=== PATIENT | male | born 1975 | race Caucasian/White ===

== ENCOUNTER 2019-10-07 20:16 | Emergency (ER) | payer MEDICARE, MEDICAID, SELFPAY ==
[2019-10-07 20:22] VITALS: BP 113/68; PULSE 75; RESP 25; TEMP 37.2; O2SAT 95
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
[2019-10-07] MEDS: iohexol 300 mg/mL 100 mL Btl IV (21:10)
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
[2019-10-07 21:41] LABS: Basophils % 0.4 %; Eosinophils # 0.1 10^3/uL (0.0-0.8); Eosinophils % 1.3 %; Hematocrit 45.3 % (42.0-52.0); Hemoglobin 15.2 g/dL (11.7-16.6); Lymphocytes # 1.3 10^3/uL (0.8-4.8); Lymphocytes % 28.5 %; Mean Corpuscular HGB Conc 33.6 g/dL (30.0-36.0); Mean Corpuscular Hemoglobin 31.2 pg (28.0-34.0); Mean Platelet Volume 9.2 fL (7.4-10.4); Monocytes # 0.3 10^3/uL (0.2-0.9); Monocytes % 7.2 %; Neutrophils # 2.93 10^3/uL (1.8-7.7); Neutrophils % 62.4 %; Nucleated Red Blood Cells % 0 %; Platelet Count 230 10^3/cmm (130-400); Red Blood Count 4.87 10^6/uL (4.1-5.3); Red Cell Distribution Width 13.5 % (12.1-15.1); White Blood Count 4.7 10^3/uL (4.0-10.0)
[2019-10-07 21:47] LABS: Alanine Aminotransferase 43 U/L (0-41); Alcohol Level 274 mg/dL (0-10); Alkaline Phosphatase 81 IU/L (40-130); Anion Gap 16.5 (5-19); Aspartate Amino Transferase 43 U/L (0-40); Blood Urea Nitrogen 6 mg/dL (6-20); Calcium 8.1 mg/dL (8.5-10.5); Carbon Dioxide 24 mmol/L (22-29); Chloride 104 mmol/L (98-107); Globulin 2.7 g/dL (1.3-4.6); Glucose 118 mg/dL (65-115); Magnesium 1.8 mg/dL (1.7-2.3); Osmolality Calculated 289 mOsm/kg (285-295); Potassium 3.5 mmol/L (3.5-5.1); Sodium 141 mmol/L (136-145); Total Bilirubin 0.2 mg/dL (0.15-1.2); Total Protein 6.7 g/dL (6.6-8.7)
[2019-10-07 21:51] LABS: INR 0.94 (0.8-1.2); Partial Thromboplastin Time 25.4 SECONDS (23.9-36.7)
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
[2019-10-07 22:56] VITALS: BP 128/85; PULSE 70; RESP 14; O2SAT 98
--- NOTE | 2019-10-07 22:58 | PC.NURSE ---
Wound dressing applied to left elbow and hand.
== END 2019-10-07 22:58 | disposition home or self-care (01) ==
PROVIDERS: Emergency Provider Emergency Medicine
DX: S60.512A Abrasion of left hand, initial encounter (principal); V03.90XA Pedestrian on foot injured in collision with car, pick-up truck or van, unspecified whether traffic or nontraffic accident, initial encounter
CPT/HCPCS: 12345; 36415; 70450; 71045; 71260; 72125; 72170; 73080; 73090; 73110; 73130; 73502; 74177; 80053; 80307; 83735; 85025; 85610; 85730; 99283; 99284; Q9967

== ENCOUNTER 2020-06-09 12:04 | Inpatient (IN) | payer MEDICARE, MEDICAID, SELFPAY ==
--- NOTE | 2020-06-09 | XR_ITS ---
WS: [id number] Portable AP upright chest, 06/09/2020 Clinical Data: CHEST PAIN Comparison: Portable chest, 10/07/2019. Findings: No nodules, masses or effusions are seen. The heart is normal. The pulmonary vascularity is not increased. No pneumonia or pneumothorax is seen. XR/XR chest 1V portable [id number] Impression: Negative chest.
[2020-06-09 12:08] VITALS: BP 133/86; PULSE 93; RESP 18; TEMP 36.6; O2SAT 95
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
[2020-06-09] MEDS: haloperidol inj 5 mg/mL INJ 1 mL IM (12:32)
[2020-06-09] MEDS: sodium chloride 0.9% 1,000 ML 999 ML IV (12:49)
[2020-06-09 12:52] LABS: Basophils % 0.8 %; Eosinophils # 0.1 10^3/uL (0.0-0.8); Eosinophils % 2.3 %; Hematocrit 44.4 % (42.0-52.0); Hemoglobin 15.3 g/dL (11.7-16.6); Lymphocytes # 1.6 10^3/uL (0.8-4.8); Lymphocytes % 29.3 %; Mean Corpuscular HGB Conc 34.5 g/dL (30.0-36.0); Mean Corpuscular Volume 92.9 fL (80-94); Mean Platelet Volume 9.4 fL (7.4-10.4); Monocytes # 0.6 10^3/uL (0.2-0.9); Neutrophils # 2.99 10^3/uL (1.8-7.7); Neutrophils % 56.4 %; Nucleated Red Blood Cells % 0 %; Platelet Count 218 10^3/cmm (130-400); Red Blood Count 4.78 10^6/uL (4.1-5.3); Red Cell Distribution Width 11.7 % (12.1-15.1); White Blood Count 5.3 10^3/uL (4.0-10.0)
[2020-06-09 13:19] LABS: Alanine Aminotransferase 30 U/L (0-41); Albumin Level 4.6 g/dL (3.5-5.2); Alkaline Phosphatase 101 IU/L (40-130); Anion Gap 15.2 (5-19); Aspartate Amino Transferase 33 U/L (0-40); Blood Urea Nitrogen 8 mg/dL (6-20); Carbon Dioxide 26 mmol/L (22-29); Chloride 101 mmol/L (98-107); Globulin 2.8 g/dL (1.3-4.6); Glucose 98 mg/dL (65-115); Osmolality Calculated 286 mOsm/kg (285-295); Potassium 3.2 mmol/L (3.5-5.1); Sodium 139 mmol/L (136-145); Total Bilirubin 0.6 mg/dL (0.15-1.2); Total Protein 7.4 g/dL (6.6-8.7)
[2020-06-09 13:21] LABS: Acetaminophen < 5.0 ug/mL (10-30); Salicylate < 0.3 mg/dL (3-10)
[2020-06-09 14:21] LABS: Alcohol Level 213 mg/dL (0-10)
[2020-06-09] MEDS: potassium chloride ER 20 mEq Tablet 40 MEQ PO (14:32)
[2020-06-09 14:52] LABS: Add Urine Microscopic? NO; Charge for UA Resulting for Rev
[2020-06-09 15:02] LABS: Bilirubin Urine Neg (Negative); Blood Urine Neg (Negative); Glucose Urine UA Norm (Normal); Ketones Urine Negative (Negative); Leukocyte Esterase Urine Negative (Negative); Nitrate Urine Negative (Negative); Protein Urine Neg (Negative); Specific Gravity, Urine 1.005 (1.005-1.030); Urine Appearance Clear (CLEAR); Urine Color Straw (Yellow); Urobilinogen Urine Norm (Negative); pH Urine 6 (5-7)
[2020-06-09 15:17] LABS: Amphetamines Screen Urine Negative (Negative); Barbiturates Screen Urine Negative (Negative); Benzodiazepines Screen Urine Negative (Negative); Cocaine Screen Urine Negative (Negative); Opiate Screen Urine Negative (Negative); PCP Screen Urine Negative (Negative); THC Screen Urine Negative (Negative)
[2020-06-09 15:46] VITALS: BP 144/66; PULSE 79; RESP 18; TEMP 36.5; O2SAT 96
--- NOTE | 2020-06-09 15:50 | PC.NURSE ---
2 glass pipes disposed of in sharps container, witnessed by security and other nursing staff
[2020-06-09 18:46] LABS: Amphetamines Screen Urine Negative (Negative); Barbiturates Screen Urine Negative (Negative); Benzodiazepines Screen Urine Negative (Negative); Cocaine Screen Urine Negative (Negative); Opiate Screen Urine Negative (Negative); PCP Screen Urine Negative (Negative); THC Screen Urine Negative (Negative)
[2020-06-09 19:56] VITALS: RESP 16
[2020-06-10 06:00] VITALS: BP 134/78; PULSE 77; RESP 15; TEMP 37.3; O2SAT 95
[2020-06-10] MEDS: multivitamin therapeutic Tablet 1 TAB PO (08:30)
[2020-06-10] MEDS: folic acid 1 mg Tablet PO (08:31)
[2020-06-10] MEDS: thiamine 100 mg Tablet PO (08:31)
[2020-06-10 14:00] VITALS: BP 148/96; PULSE 74; RESP 18; TEMP 36.8; O2SAT 99
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
[2020-06-10 20:34] VITALS: BP 145/88; PULSE 87; RESP 18; TEMP 36.7; O2SAT 97
[2020-06-10] MEDS: hyDROXYzine 25 mg Capsule 50 MG PO (20:54)
[2020-06-10] MEDS: trazodone 50 mg Tablet PO (20:54)
--- NOTE | 2020-06-10 21:00 | PC.NURSE ---
PRN MEDS PT GIVEN 50MG VISTARIL FOR STATED ANXIETY, AND 50MG TRAZODONE FOR INSOMNIA, WILL CONTINUE TO MONITOR.
[2020-06-10] MEDS: ibuprofen 600 mg Tablet PO (21:21)
--- NOTE | 2020-06-10 22:35 | PC.NURSE ---
PRN MED PT RESTING IN BED O S/S O DISTRESS, WILL CONTINUE TO MONITOR.
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
--- NOTE | 2020-06-11 02:22 | PC.NURSE ---
Addendum entered by Latoya Garcia RN 06/11/20 05:20: rescored ciwa 0 Original Note: ciwa 15 pt woke up nauseated, sweating, reported headache, nausea, and sensitivity to light. moderate tremor, ciwa 15. med nurse notified.
[2020-06-11] MEDS: ondansetron 4 MG Tablet PO (02:27)
[2020-06-11] MEDS: LORazepam 2 mg Tablet PO ×3 (02:27→23:06)
--- NOTE | 2020-06-11 02:32 | PC.NURSE ---
Addendum entered by Latoya Garcia RN 06/11/20 03:22: follow up pt is sleeping , no nausea, Original Note: PRN Ativan 2mg po given for ciwa 15 zofran 4mg po given for nausea will continue to observe
[2020-06-11 06:00] VITALS: BP 135/92; PULSE 78; RESP 17; TEMP 36.6; O2SAT 98
[2020-06-11] MEDS: thiamine 100 mg Tablet PO (09:29)
[2020-06-11] MEDS: folic acid 1 mg Tablet PO (09:29)
[2020-06-11] MEDS: multivitamin therapeutic Tablet 1 TAB PO (09:30)
--- NOTE | 2020-06-11 11:16 | PC.NURSE ---
Addendum entered by Kavya Rojo LPN 06/11/20 11:19: late entry PRN Ativan follow up @ 1000 PRN medication effective, will continue to monitor Original Note: late entry PRN Ativan 0930 Ativan 2mg PO given per CIWA protocol. CIWA score 10. Will monitor for medication effectiveness.
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
[2020-06-11 14:00] VITALS: BP 125/85; PULSE 93; RESP 20; TEMP 36.4; O2SAT 96
--- NOTE | 2020-06-11 14:19 | P.PN_ITS ---
Subjective NPU Subjective: Interval history: Progress note from Kalli Manriquez, therapist, written today was reviewed. Significant concerns about continuing to have delusions as well as patient having some confusion about circumstances surrounding his girlfriend being moved. Patient currently denying any psychotic symptoms to this interviewer, denying any auditory or visual hallucinations, d enying any delusions. Denying any mood symptoms. Patient acknowledges that his girlfriend has moved away from him and states that he is not sure where he would go stay if discharged from the hospital. He currently denies any mood symptoms, denies any depressive symptoms, denies any suicidal ideation and denies any irritability or homicidal ideation. Mental Status Exam MSE Comments: Initially walking up and down hallway, disheveled, unkempt hair, appropriately dressed in hospital scrubs, calm, cooperative, good eye contact Psychomotor activity is neither increased nor decreased, no agitation Speech is normal volume, normal rate, poor articulation, not pressured I am fine, full range of affect, not labile Alert and oriented to person, place, time Memory and concentration is fair at best based on interview, difficulty recalling events leading to his hospitalization other than he had been drinking alcohol and was near some train tracks Intellectual functioning appears to be below average based on vocabulary, interview Thought process, linear, brief, no flight of ideas, no looseness of associations Thought content, no delusions, no hallucinations, no suicidal or homicidal ideation Insight and judgment appear to be fair Vitals/I&O/Wt Last Vital Signs Temp 97.9 F 06/11/20 06:00 Pulse 78 06/11/20 06:00 Resp 17 06/11/20 06:00 BP 135/92 06/11/20 06:00 Pulse Ox 98 06/11/20 06:00 Weight last 48 hrs Weight 90.718 kg Data NPU : 06/09/20 12:45 06/09/20 12:45 A&P Assessment and plan (1) Suicidal ideation: Status: Acute (2) Alcohol intoxication: Status: Acute Qualifiers: Complication of substance-induced condition: uncomplicated Qualified Code(s): F10.920 - Alcohol use, unspecified with intoxication, uncomplicated (3) Alcohol-induced mood disorder: Status: Acute Additional A&P Information Continues to deny any suicidal ideation and denies any interval mood symptoms, denies any irritability or anger. Concerns about ongoing psychotic symptoms with regards to delusions and recent events involving his girlfriend being moved away from him. Patient currently not presenting with any psychotic symptoms and does not appear to be demonstrating any disorganization in speech or behavior or thoughts. Unclear if behavior was sequela from alcohol withdrawal or recent alc ohol intoxication. We will continue to monitor for any signs of withdrawal. CONTINUE current medication, continue to monitor Involuntary Hold Information 96 Hour Hold: 96 Hour Involuntary Admission: Yes 96 Hour Hold Ending Date: 06/15/20 96 Hour Hold Ending Time: 14:30 Attestations NPU Medical Necessity Statement*: Continues to require psychiatric hospitalization for observation for any suicidal ideation or behaviors as well as coordination for safe discharge. 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
[2020-06-11] MEDS: calcium carbonate 500 mg Chew Tablet PO (16:20)
[2020-06-11] MEDS: trazodone 50 mg Tablet PO (19:28)
[2020-06-11] MEDS: hyDROXYzine 25 mg Capsule 50 MG PO (19:28)
--- NOTE | 2020-06-11 19:33 | PC.NURSE ---
Pt noted to be attempting to deal with some anger after session with Beverly of . Suggestion was made by Beverly that pt was needing something med cote to help ease his anger feelings and to help him sleep. Trazodone 50mg po and Vistaril 50mg po given. Pt himself stated he needed something for my anger .
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
--- NOTE | 2020-06-11 20:27 | PC.NURSE ---
PT HAS HAD HIS HS SNACK, STATES FEELING BETTER. PT HAS TALKED TO HIS MOM ON THE PHONE. PT NOW STATES HE IS READY FOR AND GOING TO BED.
[2020-06-11] MEDS: ibuprofen 600 mg Tablet PO (20:32)
[2020-06-11 20:41] VITALS: BP 128/84; PULSE 68; RESP 18; TEMP 36.8; O2SAT 94
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
[2020-06-12] MEDS: calcium carbonate 500 mg Chew Tablet PO ×2 (04:21→09:40)
--- NOTE | 2020-06-12 04:21 | PC.NURSE ---
PT REQUESTED TUMS FOR INDIGESTION. TUMS 1 TAB GIVEN.
[2020-06-12 06:00] VITALS: BP 120/85; PULSE 83; RESP 18; TEMP 36.8; O2SAT 97
[2020-06-12] MEDS: ibuprofen 600 mg Tablet PO ×2 (06:56→17:48)
[2020-06-12] MEDS: thiamine 100 mg Tablet PO (08:18)
[2020-06-12] MEDS: multivitamin therapeutic Tablet 1 TAB PO (08:18)
[2020-06-12] MEDS: folic acid 1 mg Tablet PO (08:18)
[2020-06-12] MEDS: hyDROXYzine 25 mg Capsule 50 MG PO ×2 (08:18→20:07)
[2020-06-12] MEDS: OLANZapine 5 mg TABLET PO ×2 (09:39→17:48)
--- NOTE | 2020-06-12 11:20 | P.PN_ITS ---
Subjective NPU Subjective: Interval history: Patient initially polite and pleasant when asking about leaving but then subsequently became irritable and somewhat angry when asked about experiencing perceptual disturbances to which the patient has stated that he has experienced some recently. Patient states that he does not like taking medication that he had taken in the past because he did not feel like it worked and did not like the way it made him feel. Patient also does not mount and directly say that his primary interest in leaving his to drink alcohol but asks many questions about whether or not he will get all of the items back that he came to the hospital with Patient does admit to past and recent episodes of abrupt irritability and anger during situations in which he feels like things are not going the way he would like for them to go but denies any thoughts of wanting to harm anyone else He currently denies any depressive symptoms, denies any suicidal ideation He currently denies any auditory or visual hallucinations Per nurse report, patient had reportedly stated that he had visions of being cut in half Per note review provided by therapist and not available in electronic medical record, patient with past history of impulse control disorder with episodes of extreme anger and concerns about past threat of violence towards others which was treated off label with atypical antipsychotic medication for mood stabilization. Mental Status Exam MSE Comments: Sitting on bench across from nurses station, disheveled, unkempt hair, smells of body odor, appropriately dressed in hospital scrubs, calm, cooperative, good eye contact Psychomotor activity is neither increased nor decreased, no agitation Speech is normal volume, normal rate, poor articulation, not pressured I feel okay, full range of affect, not labile Alert and oriented to person, place, time Memory and concentration is fair per interview Thought process, linear, brief, no flight of ideas, no looseness of associations Thought content, no delusions, no hallucinations, no suicidal or homicidal ideation Insight and judgment appear to be fair Vitals/I&O/Wt Last Vital Signs Temp 98.3 F 06/12/20 06:00 Pulse 83 06/12/20 06:00 Resp 18 06/12/20 06:00 BP 120/85 06/12/20 06:00 Pulse Ox 97 06/12/20 06:00 Data NPU : 06/09/20 12:45 06/09/20 12:45 A&P Assessment and plan (1) Suicidal ideation: Status: Acute (2) Alcohol intoxication: Status: Acute Qualifiers: Complication of substance-induced condition: uncomplicated Qualified Code(s): F10.920 - Alcohol use, unspecified with intoxication, uncomplicated (3) Impulse control disorder, unspecified: Status: Acute Additional A&P Information Review of previous notes indicate history of impulse control disorder with episodes of more severe anger and irritability with threat of violence to others that has been concerning in the past for his safety and others which had been treated with atypical antipsychotics and mood stabilizers. Patient appears to be less than forthright about recent events and recent issues with irritability and anger as well as potentially psychotic symptoms. He does not appear to be attending to any internal stimuli at this time and does not appear to be disorganized in his speech or behavior but does demonstrate some low frustration tolerance and preoccupation with returning to alcohol use. Discussed benefit of starting low-dose antipsychotic with patient who understood and agreed. Also discussed need to abstain from use of alcohol or any substances START olanzapine 5 mg twice daily targeting mood Continue to monitor Involuntary Hold Information 96 Hour Hold: 96 Hour Involuntary Admission: Yes 96 Hour Hold Ending Date: 06/15/20 96 Hour Hold Ending Time: 14:30 Attestations NPU Medical Necessity Statement*: Continues to require psychiatric hospitalization for medication stabilization, coordination for safe discharge Coding Level of Care Code Acute Rubber Goods Assembler for marzena Mccauley Diagnoses Suicidal ideation R45.851 Alcohol intoxication F10.920 Complication of substance-induced condition: uncomplicated Impulse control disorder, unspecified F63.9
[2020-06-12 13:33] VITALS: BP 120/86; PULSE 84; RESP 17; TEMP 36.7
[2020-06-12] MEDS: OLANZapine 5 mg ODT PO (20:07)
[2020-06-12 20:22] VITALS: BP 154/89; PULSE 95; RESP 18; TEMP 36.7; O2SAT 97
--- NOTE | 2020-06-12 20:28 | PC.NURSE ---
Pt came to the nurses desk after shift change, wondering can i have that medicine you gave me for my anger and sleep? Zyprexa 5mg po and Visteril 50mg po given.
--- NOTE | 2020-06-12 21:22 | PC.NURSE ---
Pt resting quietly with both eyes closed.
[2020-06-13] MEDS: OLANZapine 5 mg ODT PO ×2 (01:05→19:56)
[2020-06-13 06:00] VITALS: BP 155/96; PULSE 97; RESP 17; TEMP 36.7; O2SAT 100
[2020-06-13] MEDS: multivitamin therapeutic Tablet 1 TAB PO (07:34)
[2020-06-13] MEDS: ibuprofen 600 mg Tablet PO (07:34)
[2020-06-13] MEDS: OLANZapine 5 mg TABLET PO ×2 (07:34→17:44)
[2020-06-13] MEDS: thiamine 100 mg Tablet PO (07:34)
[2020-06-13] MEDS: folic acid 1 mg Tablet PO (07:34)
[2020-06-13] MEDS: calcium carbonate 500 mg Chew Tablet PO (08:28)
[2020-06-13] MEDS: acetaminophen 325 mg Tablet 650 MG PO (11:36)
--- NOTE | 2020-06-13 13:36 | P.PN_ITS ---
Subjective NPU Subjective: Interval history: Patient reports improvement in his irritability and mood, denies any interval depressive symptoms Denies any suicidal ideation Denies any interval alcohol withdrawal symptoms Reports being compliant with this medication and denies any medication side e ffects Mental Status Exam MSE Comments: Sitting in the day room, unkempt hair, appropriately dressed in hospital scrubs, calm, cooperative, good eye contact Psychomotor activity is neither increased nor decreased, no agitation Speech is normal volume, normal rate, poor articulation, not pressured I feel pretty good, full range of affect, smiles appropriately at times during interview, not labile Alert and oriented to person, place, time Memory and concentration is fair per interview Thought process, linear, brief, no flight of ideas, no looseness of associations Thought content, no delusions, no hallucinations, does not appear to be attending to any internal stimuli, no suicidal or homicidal ideation Insight and judgment appear to be fair to intact Vitals/I&O/Wt Last Vital Signs Temp 98.0 F 06/13/20 06:00 Pulse 97 06/13/20 06:00 Resp 17 06/13/20 06:00 BP 155/96 06/13/20 06:00 Pulse Ox 100 06/13/20 06:00 Weight last 48 hrs Weight 90.718 kg Data NPU : 06/09/20 12:45 06/09/20 12:45 A&P Assessment and plan (1) Impulse control disorder, unspecified: Status: Acute (2) Suicidal ideation: Status: Acute (3) Alcohol intoxication: Status: Acute Qualifiers: Complication of substance-induced condition: uncomplicated Qualified C ode(s): F10.920 - Alcohol use, unspecified with intoxication, uncomplicated Additional A&P Information Patient with no interval behavioral disturbances, no interval reported irritability or abrupt changes in behavior, denies any suicidal ideation or t houghts about self-harm, compliant with medication and no reported medication side effects. Patient would benefit from coordination with social work with regards to follow on care. CONTINUE current medication, continue to monitor Involuntary Hold Information 96 Hour Hold: 96 Hour Involuntary Admission: Yes 96 Hour Hold Ending Date: 06/15/20 96 Hour Hold Ending Time: 14:30 Attestations NPU Medical Necessity Statement*: Continues to require psychiatric hospitalization for medication stabilization, coordination for safe discharge Coding Level of Care Code Acute Electromechanical Engineer for Chg Fwd Diagnoses Impulse control disorder, unspecified F63.9 Suicidal ideation R45.851 Alcohol intoxication F10.920 Complication of substance-induced condition: uncomplicated
[2020-06-13 13:44] VITALS: BP 114/79; PULSE 99; RESP 18; TEMP 36.9; O2SAT 96
[2020-06-13 19:54] VITALS: BP 119/74; PULSE 93; RESP 15; TEMP 37.6; O2SAT 96
[2020-06-13] MEDS: hyDROXYzine 25 mg Capsule 50 MG PO (19:55)
[2020-06-14] MEDS: OLANZapine 5 mg ODT PO (01:57)
[2020-06-14] MEDS: hyDROXYzine 25 mg Capsule 50 MG PO (01:57)
[2020-06-14] MEDS: ibuprofen 600 mg Tablet PO ×2 (02:00→07:58)
--- NOTE | 2020-06-14 02:36 | PC.NURSE ---
at 0145, pt came to the nurses desk and requested ibuprofen for back pain and anger med . i can't sleep and i can't stop thinking . motrin 600mg po given. also Vistaril and zyprexa given.
--- NOTE | 2020-06-14 02:54 | PC.NURSE ---
pt is now resting quietly in his room.
[2020-06-14 06:00] VITALS: BP 126/86; PULSE 98; RESP 17; TEMP 37.1; O2SAT 98
[2020-06-14] MEDS: multivitamin therapeutic Tablet 1 TAB PO (07:45)
[2020-06-14] MEDS: thiamine 100 mg Tablet PO (07:45)
[2020-06-14] MEDS: OLANZapine 5 mg TABLET PO (07:45)
[2020-06-14] MEDS: folic acid 1 mg Tablet PO (07:46)
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
[2020-06-14 09:42] VITALS: BP 126/86; PULSE 98; RESP 17; TEMP 37.1; O2SAT 98
== END 2020-06-14 10:45 | disposition home or self-care (01) | DRG 897 ==
LOC: ER 15:02 → NP 15:11
PROVIDERS: Admitting Provider Psychiatry & Neurology Psychiatry; Emergency Provider Family Medicine; Visit Provider Psychiatry & Neurology Psychiatry
DX: F10.129 Alcohol abuse with intoxication, unspecified (principal); R45.851 Suicidal ideations; Y90.9 Presence of alcohol in blood, level not specified; F63.9 Impulse disorder, unspecified; F32.9 Major depressive disorder, single episode, unspecified; Z63.0 Problems in relationship with spouse or partner
CPT/HCPCS: 71045; 80053; 80306; 80307; 81003; 84443; 85025; 96360; 96372; 99285; J1630; J7030; Q0162

== ENCOUNTER 2020-06-28 12:54 | Inpatient (IN) | payer MEDICARE, MEDICAID, SELFPAY ==
[2020-06-28 13:10] VITALS: BP 131/78; PULSE 87; RESP 17; O2SAT 96; BMI 25.7
--- NOTE | 2020-06-28 13:23 | ED_ITS ---
Documented by User: JOSE ROBERTO Cortez 06/29/20 07:02 HPI - Psych General: Chief Complaint: Psychiatric Symptoms Stated Complaint: PSYCH EVAL Time Seen by Provider: 06/28/20 13:13 Source: patient and EMS Mode of arrival: EMS Limitations: no limitations History of Present Illness: HPI Narrative: Patient is a 44-year-old male who arrives to ED today via EMS on a 96-hour hold. He was sent here from [facility] [place] for complaints of suicidal and homicidal ideations as well as hallucinations. According to hold paperwork patient made statements that he was going to kill himself by laying on the train tracks. He apparently has a history of substance abuse and previous suicidal attempts. Patient was seen here at our facility on 06/09 after he was found intoxicated lying [place] the railroad tracks. He was subsequently admitted to [facility]. [facility] [place] provider reported that client was unwilling to sign a safety plan. She reports that patient is off his medications. Patient denies HI/SI during my assessment. History of same: Yes Context: not taking psychiatric medications Associated symptoms: Deny auditory hallucinations, visual hallucinations, depression, homicidal ideation or suicidal ideation Treatments prior to arrival: placed on mental health hold Review of Systems Const: Denies: fever(s) or chills Card: Denies: chest pain, palpitations, lightheadedness or syncope Resp: Denies: dyspnea GI: Denies: abdominal pain, nausea, vomiting or diarrhea Skin/Breast: Denies: rash Neuro: Denies: headache(s) Psych: Denies: anxiety, depression, visual hallucinations, auditory hallucinations, suicidal ideation or homicidal ideation Physical Exam Const: COMMON NORMALS: no acute distress and alert GENERAL APPEARANCE: cooperative and disheveled ORIENTATION/CONSCIOUSNESS: Yes awake, Yes oriented to person, Yes oriented to place and Yes oriented to time HENMT: COMMON NORMALS: normocephalic and atraumatic HEAD & SCALP: normocephalic and atraumatic Resp: COMMON NORMALS: normal respiratory effort and clear to auscultation bilaterally AUSCULTATION: clear to auscultation bilaterally Cardio: COMMON NORMALS: regular rate and regular rhythm RATE: regular rate RHYTHM: regular rhythm Neuro: SENSORIUM/ORIENTATION: Yes alert, Yes oriented to person, Yes oriented to place and Yes oriented to time Psych: COMMON NORMALS: mental status grossly normal, Normal thought process present, cooperative, normal affect, speech normal, activity/motor behavior normal, denies hallucinations, denies homicidal ideation and denies suicidal ideation APPEARANCE: Yes disheveled ATTITUDE: Yes calm ACTIVITY/MOTOR BEHAVIOR: Yes appropriate eye contact and No psychomotor agitation SPEECH: Yes normal speech MOOD & AFFECT: Yes euthymic mood THOUGHT PROCESS: Normal thought process present THOUGHT CONTENT: Yes Normal thought content present ATTENTION/CONCENTRATION: Yes attention grossly intact and Yes concentration grossly intact MEMORY/COGNITION: Yes memory grossly intact INSIGHT: Limit ed insight present (Psych) JUDGEMENT: Limited judgement present (Psych) Course Consultations: Consultation #1: Dr. Cuevas-recommends admit to NPU as OBS Vital Signs: Vital signs: Vital Signs Temperature 98.8 F 07/02/20 14:25 Pulse Rate 102 H 07/02/20 14:25 Respiratory Rate 18 07/02/20 14:25 Blood Pressure 121/81 07/02/20 14:25 Pulse Oximetry 95 07/02/20 14:25 MDM - Psych MDM Narrative: Medical decision making narrative: Patient on a [address] Cuevas recommends OBS admit to NPU. Dr. Diaz will place admit orders. Lab Data: Labs: Lab Results 06/28/20 06/28/20 06/28/20 Range/Units 14:20 14:20 15:41 WBC 6.4 (4.0-10.0) 10^3/ uL RBC 5.15 (4.1-5.3) 10^6/u L Hgb 16.6 (11.7-16.6) g/dL Hct 48.9 (42.0-52.0) % MCV 95.0 H (80-94) fL MCH 32.2 (28.0-34.0) pg MCHC 33.9 (30.0-36.0) g/dL RDW 12.0 L (12.1-15.1) % Plt Count 328 (130-400) 10^3/c mm MPV 9.3 (7.4-10.4) fL Neut % (Auto) 66.1 % Lymph % (Auto) 21.7 % Stone % (Auto) 8.6 % Eos % (Auto) 2.0 % Baso % (Auto) 0.8 % Neut # (Auto) 4.24 (1.8-7.7) 10^3/u L Lymph # (Auto) 1.4 (0.8-4.8) 10^3/u L Stone # (Auto) 0.6 (0.2-0.9) 10^3/u L Eos # (Auto) 0.1 (0.0-0.8) 10^3/u L Baso # (Auto) 0.1 (0.0-0.1) 10^3/u L Nucleated RBC % (a uto) 0 % Nucleated RBCs # 0.0 /100WBC Sodium 138 (136-145) mmol/L Potassium 4.0 (3.5-5.1) mmol/L Chloride 101 (98-107) mmol/L Carbon Dioxide 23 (22-29) mmol/L Anion Gap 18.0 (5-19) BUN 9 (6-20) mg/dL Creatinine 0.8 (0.7-1.2) mg/dL GFR Calculation 106.0 (90-130) mL/min Glucose 101 (65-115) mg/dL Calculated Osmolal ity 285 (285-295) mOsm/k g Calcium 8.9 (8.5-10.5) mg/dL Total Bilirubin 0.6 (0.15-1.2) mg/dL AST 34 (0-40) U/L ALT 45 H (0-41) U/L Alkaline Phosphata se 74 (40-130) IU/L Total Protein 7.4 (6.6-8.7) g/dL Albumin 4.5 (3.5-5.2) g/dL Globulin 2.9 (1.3-4.6) g/dL Salicylates < 0.3 L (3-10) mg/dL Urine Opiates Scre en Negative (Negative) ng/mL Acetaminophen < 5.0 L (10-30) ug/mL Ur Barbiturates Sc reen Negative (Negative) ng/mL Ur Phencyclidine S crn Negative (Negative) ng/mL Ur Amphetamines Sc reen Negative (Negative) ng/mL U Benzodiazepines Scrn Negative (Negative) ng/mL Urine Cocaine Scre en Negative (Negative) ng/mL U Marijuana (THC) Screen Negative (Negative) ng/mL Ethyl Alcohol < 10 (0-10) mg/dL Discharge Plan Discharge Patient Disposition: Admitted As Inpatient Admit Provider: Tano Cuevas Clinical Impression: Involuntary commitment, Suicidal ideation Condition: Stable Discharge Diet: Regular Discharge Activity: Resume usual activity Coding Level of Care Code ED Loan Review Officer for Maria G Fwkylah Exam Detailed Documented by User: Nia Diaz MD, [facility] 07/08/20 13:19 HPI - Psych General: Chief Complaint: Psychiatric Symptoms Stated Complaint: PSYCH EVAL Time Seen by Provider: 06/28/20 13:13 Course Vital Signs: Vital signs: Vital Signs Temperature 98.8 F 07/02/20 14:25 Pulse Rate 102 H 07/02/20 14:25 Respiratory Rate 18 07/02/20 14:25 Blood Pressure 121/81 07/02/20 14:25 Pulse Oximetry 95 07/02/20 14:25 MDM - Psych MDM Narrative: Medical decision making narrative: Kindly review the midlevel provider, Kae Marrufo's note for complete history and physical. I evaluated this patient and agree with her findings. He is intoxicated, states that he is suicidal and homicidal. He is being admitted to the [facility]PU for further evaluation and management Lab Data: Labs: Lab Results 06/28/20 06/28/20 06/28/20 Range/Units 14:20 14:20 15:41 WBC 6.4 (4.0-10.0) 10^3/ uL RBC 5.15 (4.1-5.3) 10^6/u L Hgb 16.6 (11.7-16.6) g/dL Hct 48.9 (42.0-52.0) % MCV 95.0 H (80-94) fL MCH 32.2 (28.0-34.0) pg MCHC 33.9 (30.0-36.0) g/dL RDW 12.0 L (12.1-15.1) % Plt Count 328 (130-400) 10^3/c mm MPV 9.3 (7.4-10.4) fL Neut % (Auto) 66.1 % Lymph % (Auto) 21.7 % Stone % (Auto) 8.6 % Eos % (Auto) 2.0 % Baso % (Auto) 0.8 % Neut # (Auto) 4.24 (1.8-7.7) 10^3/u L Lymph # (Auto) 1.4 (0.8-4.8) 10^3/u L Stone # (Auto) 0.6 (0.2-0.9) 10^3/u L Eos # (Auto) 0.1 (0.0-0.8) 10^3/u L Baso # (Auto) 0.1 (0.0-0.1) 10^3/u L Nucleated RBC % (a uto) 0 % Nucleated RBCs # 0.0 /100WBC Sodium 138 (136-145) mmol/L Potassium 4.0 (3.5-5.1) mmol/L Chloride 101 (98-107) mmol/L Carbon Dioxide 23 (22-29) mmol/L Anion Gap 18.0 (5-19) BUN 9 (6-20) mg/dL Creatinine 0.8 (0.7-1.2) mg/dL GFR Calculation 106.0 (90-130) mL/min Glucose 101 (65-115) mg/dL Calculated Osmolal ity 285 (285-295) mOsm/k g Calcium 8.9 (8.5-10.5) mg/dL Total Bilirubin 0.6 (0.15-1.2) mg/dL AST 34 (0-40) U/L ALT 45 H (0-41) U/L Alkaline Phosphata se 74 (40-130) IU/L Total Protein 7.4 (6.6-8.7) g/dL Albumin 4.5 (3.5-5.2) g/dL Globulin 2.9 (1.3-4.6) g/dL Salicylates < 0.3 L (3-10) mg/dL Urine Opiates Scre en Negative (Negative) ng/mL Acetaminophen < 5.0 L (10-30) ug/mL Ur Barbiturates Sc reen Negative (Negative) ng/mL Ur Phencyclidine S crn Negative (Negative) ng/mL Ur Amphetamines Sc reen Negative (Negative) ng/mL U Benzodiazepines Scrn Negative (Negative) ng/mL Urine Cocaine Scre en Negative (Negative) ng/mL U Marijuana (THC) Screen Negative (Negative) ng/mL Ethyl Alcohol < 10 (0-10) mg/dL Discharge Plan Discharge Patient Disposition: Admitted As Inpatient Admit Provider: Tano Cuevas Clinical Impression: Involuntary commitment, Suicidal ideation Condition: Stable Discharge Diet: Regular Discharge Activity: Resume usual activity Coding Level of Care Code ED Loan Review Officer for Sandrag Fwd Exam Detailed
[2020-06-28 13:28] VITALS: BP 131/78; PULSE 97; RESP 16; O2SAT 96
[2020-06-28 14:58] LABS: Basophils # 0.1 10^3/uL (0.0-0.1); Basophils % 0.8 %; Eosinophils # 0.1 10^3/uL (0.0-0.8); Hematocrit 48.9 % (42.0-52.0); Hemoglobin 16.6 g/dL (11.7-16.6); Lymphocytes # 1.4 10^3/uL (0.8-4.8); Lymphocytes % 21.7 %; Mean Corpuscular HGB Conc 33.9 g/dL (30.0-36.0); Mean Corpuscular Hemoglobin 32.2 pg (28.0-34.0); Mean Platelet Volume 9.3 fL (7.4-10.4); Monocytes # 0.6 10^3/uL (0.2-0.9); Monocytes % 8.6 %; Neutrophils # 4.24 10^3/uL (1.8-7.7); Neutrophils % 66.1 %; Nucleated Red Blood Cells % 0 %; Platelet Count 328 10^3/cmm (130-400); Red Blood Count 5.15 10^6/uL (4.1-5.3); White Blood Count 6.4 10^3/uL (4.0-10.0)
[2020-06-28 15:28] LABS: Alanine Aminotransferase 45 U/L (0-41); Albumin Level 4.5 g/dL (3.5-5.2); Alkaline Phosphatase 74 IU/L (40-130); Aspartate Amino Transferase 34 U/L (0-40); Blood Urea Nitrogen 9 mg/dL (6-20); Calcium 8.9 mg/dL (8.5-10.5); Carbon Dioxide 23 mmol/L (22-29); Chloride 101 mmol/L (98-107); Creatinine Clr Calc Pharmacy 145.6511; Globulin 2.9 g/dL (1.3-4.6); Glucose 101 mg/dL (65-115); Osmolality Calculated 285 mOsm/kg (285-295); Sodium 138 mmol/L (136-145); Total Bilirubin 0.6 mg/dL (0.15-1.2); Total Protein 7.4 g/dL (6.6-8.7)
[2020-06-28 15:51] LABS: Acetaminophen < 5.0 ug/mL (10-30); Alcohol Level < 10 mg/dL (0-10); Salicylate < 0.3 mg/dL (3-10)
[2020-06-28 16:16] LABS: Amphetamines Screen Urine Negative (Negative); Barbiturates Screen Urine Negative (Negative); Benzodiazepines Screen Urine Negative (Negative); Cocaine Screen Urine Negative (Negative); Opiate Screen Urine Negative (Negative); PCP Screen Urine Negative (Negative); THC Screen Urine Negative (Negative)
[2020-06-28 16:28] VITALS: BP 130/86; PULSE 95; RESP 20; TEMP 36.9; O2SAT 94
[2020-06-28] MEDS: OLANZapine 5 mg TABLET PO (20:03)
[2020-06-28 20:25] VITALS: BP 123/74; PULSE 102; RESP 17; TEMP 36.1; O2SAT 97
[2020-06-29 06:00] VITALS: BP 121/82; PULSE 95; RESP 15; TEMP 36.8; O2SAT 98
[2020-06-29] MEDS: OLANZapine 5 mg TABLET PO ×2 (07:58→19:33)
[2020-06-29] MEDS: thiamine 100 mg Tablet PO (07:58)
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
[2020-06-29 14:00] VITALS: BP 115/72; PULSE 85; RESP 20; TEMP 36.7; O2SAT 97
[2020-06-29] MEDS: ziprasidone hcl 20 mg Capsule PO (14:39)
[2020-06-29] MEDS: ziprasidone hcl 40 mg Capsule PO (16:43)
[2020-06-29 19:43] VITALS: BP 131/88; PULSE 109; RESP 18; TEMP 36.9; O2SAT 95
[2020-06-30 05:32] VITALS: BP 121/89; PULSE 85; RESP 15; TEMP 36.6; O2SAT 98
[2020-06-30] MEDS: ziprasidone hcl 40 mg Capsule PO ×2 (06:02→17:50)
[2020-06-30] MEDS: thiamine 100 mg Tablet PO (08:43)
[2020-06-30] MEDS: OLANZapine 5 mg TABLET PO ×2 (08:43→20:34)
[2020-06-30 14:00] VITALS: BP 118/78; PULSE 89; RESP 17; TEMP 36.6; O2SAT 96
[2020-06-30] MEDS: OLANZapine 5 mg ODT PO (16:02)
--- NOTE | 2020-06-30 19:29 | P.PN_ITS ---
Subjective NPU Subjective: Interval history: Zak presents today reporting that the Geodon has been very effective for him. He reports that it has helped with his paranoia and hallucinations. We discussed the possibility that we might increase the Geodon prior to discharge and decrease the Zyprexa. We discussed the risk benefits and alternatives of making those changes and he understood and agreed to proceed as is documented in this note. He also was inquisitive about when he might be discharged being hopeful that it is not a prolonged stay and we talked about the possibility of evaluating for discharge in the next 48 hours. Mental Status Exam MSE Comments: This is a well-nourished, well-developed white male in hospital scrubs with limited grooming but appropriate eye contact. No abnormal movements. Cooperative with exam in no acute distress. Speech was slightly increased rate and volume with difficulty with pronunciation of R's. Mood described as better, affect congruent. Thought process mostly organized. Thought content: Patient reported reduction in his suicidal thinking but denied homicidal thinking, there were no delusions reported but there was some odd thinking noted, he denied specific auditory or visual hallucinations. Attention and concentration were intact and memory was improving but none were formally tested. He is alert and oriented x3. Insight and judgment are improving and impulse control is limited, but improving. Vitals/I&O/Wt Last Vital Signs Temp 97.9 F 06/30/20 14:00 Pulse 89 06/30/20 14:00 Resp 17 06/30/20 14:00 BP 118/78 06/30/20 14:00 Pulse Ox 96 06/30/20 14:00 Data NPU : 06/28/20 14:20 06/28/20 14:20 A&P Additional A&P Information (1) Involuntary commitment: (2) Suicidal ideation: (3) Impulse control disorder, unspecified: (4) Abrasion hand: (5) Major depressive disorder, recurrent, severe with psychotic features: (6) History of post traumatic stress disorder: Additional A&P Information This is a 44-year-old white male with a long history of addiction and mental health treatment with recent inpatient hospitalizations and recent discontinuation of his alcohol use who presents with ongoing difficulties with depression and lethality. 1. Continue current medication. We will consider increasing the Geodon and possibly tapering off Zyprexa. 2. Continue every 15 minute checks for safety. 3. Encourage individual, group and milieu therapies. 4. Encourage sober living treatment after discharge at the highest level of care to which he is willing to commit. Involuntary Hold Information 96 Hour Hold: 96 Hour Involuntary Admission: Yes 96 Hour Hold Ending Date: 07/02/20 96 Hour Hold Ending Time: 12:54 Attestations NPU Medical Necessity Statement*: Inpatient hospitalization is medically necessary and the clinically appropriate intervention at this time. We will monitor medications and make changes as indicated. Likely length of stay 1-3 days. We will evaluate the grounds of the 96-hour hold. Coding Level of Care Code Acute Senior Infrastructure Engineer for Maria G Mccauley
--- NOTE | 2020-06-30 19:50 | P.PN_ITS ---
NPU Therapy Progress Note Therapy Progress Note Date: 06/30/20 Time In: 19:00 Time Out: 19:30 Symptoms Reported: none reported Mood: irritable at having been 96ed; however, is appropriate and relates well to me Progress Note: DEPARTMENT HEAD [employer]LEGE OR UNIVERSITY approached Zak while watching T.V. in the dayroom. He agrees to speak and vents about the 96 hour hold process after going to [facility] for help . He feels lied to by his crisis therapist. DEPARTMENT HEAD COL[employer] OR UNIVERSITY educated Zak on therapist's obligation to ensure safety. tin recovery worker and Zak discussed his anger reactions and how they can be interpreted by people who are not familiar with him. DEPARTMENT HEAD [employer] OR UNIVERSITY and Zak discussed appropriate anger reactions. DEPARTMENT HEAD [employer] OR UNIVERSITY and Zak discussed Zak's need for patience with the processes of outpatient treatment and that his providers do not have the ability to instantly meet all of his needs. Zak does seem to understand most of the points made and agrees to continue to work with his providers. He does convey his issue with trust; however, believes that generally people are doing their best to help him. Intervention: DEPARTMENT HEAD [employer] UNIV[employer]ITY listened to Zak vent anger emotions at being 96ed. DEPARTMENT HEAD [employer] OR UNIVERSITY attempted to educate about [facility] obligations and processes as well as to help develop Zak's ability for insight into consequences to his actions. Reported Goals Before Discharge: none reported
--- NOTE | 2020-06-30 19:50 | PM.NPTHER ---
NPU Therapy Progress Note Therapy Progress Note Date: 06/30/20 Time In: 19:00 Time Out: 19:30 Symptoms Reported: none reported Mood: irritable at having been 96ed; however, is appropriate and relates well to me Progress Note: CUTTER ALUMINUM SHEET approached Zak while watching T.V. in the dayroom. He agrees to speak and vents about the 96 hour hold process after going to [facility] for help . He feels lied to by his crisis therapist. CUTTER ALUMINUM SHEET educated Zak on therapist's obligation to ensure safety. collar worker and Zak discussed his anger reactions and how they can be interpreted by people who are not familiar with him. CUTTER ALUMINUM SHEET and Zak discussed appropriate anger reactions. CUTTER ALUMINUM SHEET and Zak discussed Zak's need for patience with the processes of outpatient treatment and that his providers do not have the ability to instantly meet all of his needs. Zak does seem to understand most of the points made and agrees to continue to work with his providers. He does convey his issue with trust; however, believes that generally people are doing their best to help him. Intervention: CUTTER ALUMINUM SHEET listened to Zak vent anger emotions at being 96ed. CUTTER ALUMINUM SHEET attempted to educate about [facility] obligations and processes as well as to help develop Zak's ability for insight into consequences to his actions. Reported Goals Before Discharge: none reported
[2020-06-30 20:02] VITALS: BP 129/75; PULSE 87; RESP 15; TEMP 36.5; O2SAT 97
[2020-06-30] MEDS: hyDROXYzine 25 mg Capsule 50 MG PO (21:13)
[2020-06-30] MEDS: trazodone 50 mg Tablet PO (21:14)
--- NOTE | 2020-07-01 01:38 | PC.NURSE ---
at 21:14 Patient was given 50mg Trazodone and 50mg Visteril PO for sleep and anxiety.
[2020-07-01 06:00] VITALS: BP 116/81; PULSE 95; RESP 18; TEMP 36.8; O2SAT 97
[2020-07-01] MEDS: ziprasidone hcl 40 mg Capsule PO ×2 (06:24→16:47)
[2020-07-01] MEDS: thiamine 100 mg Tablet PO (09:12)
[2020-07-01] MEDS: OLANZapine 5 mg TABLET PO ×2 (09:12→20:48)
[2020-07-01 14:00] VITALS: BP 128/89; PULSE 77; RESP 17; TEMP 36.6; O2SAT 96
[2020-07-01] MEDS: hyDROXYzine 25 mg Capsule 50 MG PO ×2 (14:00→21:17)
--- NOTE | 2020-07-01 14:01 | PC.NURSE ---
PRN VISTARIL Patient came to desk and stated he was feeling anxious. Given 50 mg Vistaril po.
--- NOTE | 2020-07-01 18:52 | P.PN_ITS ---
Subjective NPU Subjective: Interval history: Zak presents today continuing to make slow improvement in endorsing feeling better overall with the initiation of the Geodon. We continue to talk about discharge planning and work with the treatment team and collateral with his mother to ensure best outcome and safe discharge to a structured reality. Currently it is unclear that he has a place to discharge to. We reviewed the treatment the morning to solidify a discharge date moving forward. Mental Status Exam MSE Comments: This is a well-nourished, well-developed white male in hospital scrubs with limited grooming but appropriate eye contact. No abnormal movements except for mild psychomotor retardation. Cooperative with exam in no acute distress. Speech was more normal rate and volume with difficulty with pronunciation of R's. Mood described as okay, affect congruent. Thought proces s mostly organized. Thought content: Patient reported reduction in his suicidal thinking but denied homicidal thinking, there were no delusions reported but there was some odd thinking noted, he denied specific auditory or visual hallucinations. Attention and concentration were intact and memory was improving but none were formally tested. He is alert and oriented x3. Insight and judgment are improving and impulse control is limited, but improving. Vitals/I&O/Wt Last Vital Signs Temp 97.9 F 07/01/20 22:00 Pulse 88 07/01/20 22:00 Resp 18 07/01/20 22:00 BP 109/65 07/01/20 22:00 Pulse Ox 95 07/01/20 22:00 Data NPU : 06/28/20 14:20 06/28/20 14:20 A&P Additional A&P Information (1) Involuntary commitment: (2) Suicidal ideation: (3) Impulse control disorder, unspecified: (4) Abrasion hand: (5) Major depressive disorder, recurrent, severe with psychotic features: (6) History of post traumatic stress disorder: Additional A&P Information This is a 44-year-old white male with a long history of addiction and [facility] with recent inpatient hospitalizations and recent discontinuation of his alcohol use who presents with ongoing difficulties with depression and lethality. 1. Continue current medication. We will consider increasing the Geodon and possibly tapering off Zyprexa. 2. Continue every 15 minute checks for safety. 3. Encourage individual, group and milieu therapies. 4. Encourage sober living treatment after discharge at the highest level of care to which he is willing to commit. Involuntary Hold Information 96 Hour Hold: 96 Hour Involuntary Admission: Yes 96 Hour Hold Ending Date: 07/02/20 96 Hour Hold Ending Time: 12:54 Attestations NPU Medical Necessity Statement*: Inpatient hospitalization is medically necessary and the clinically appropriate intervention at this time. We will monitor medications and make changes as indicated. Likely length of stay 1-3 days. Coding Level of Care Code Acute Director Of Compensation for Maria G Mccauley
[2020-07-01] MEDS: trazodone 50 mg Tablet PO (21:16)
[2020-07-01 22:00] VITALS: BP 109/65; PULSE 88; RESP 18; TEMP 36.6; O2SAT 95
--- NOTE | 2020-07-01 22:13 | PC.NURSE ---
While giving patient his scheduled 21:00 medication Patient requested Trazodone and Visteral for sleep and anxiety. Patient was given Trazodone 50mg PO and Visteral 50mg PO at 21:17.
--- NOTE | 2020-07-02 03:42 | PC.NURSE ---
behavior pt woke up requesting a snack and went into the dayroom. As staff observed the patients countenance, an expression of anger came over his face. The pt's body language is expressing his irritability. His is cursing, upset with crisis management, CHANDAN, is a liar:, for breaking his trust and sharing confidential information that got him in this damn place. Pt de-escalated verbally. Pt shared some of his family dynamics, as a young child at around age [age], his parents allowed him to drink, it was part of his routine. 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 Pt is angry at his mother, She uses my social security check to pay her bills, not mine. I have a bad payee, she is using it for alcohol and drugs. Pt is red in the face, eyes fixed, and beginning to escalate in tone. PT was able to be verbally de-escalated. Redirected after lengthy conversation in the dayroom. Sleeping at this time. will continue to observe.
[2020-07-02 06:00] VITALS: BP 121/81; PULSE 102; RESP 18; TEMP 37.1; O2SAT 95
[2020-07-02] MEDS: ziprasidone hcl 40 mg Capsule PO (06:02)
[2020-07-02] MEDS: OLANZapine 5 mg TABLET PO (07:40)
[2020-07-02] MEDS: thiamine 100 mg Tablet PO (07:40)
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
[2020-07-02 14:25] VITALS: BP 121/81; PULSE 102; RESP 18; TEMP 37.1; O2SAT 95
== END 2020-07-02 14:54 | disposition home or self-care (01) | DRG 885 ==
LOC: ER 14:43 → NP 16:58
PROVIDERS: Admitting Provider Psychiatry & Neurology Psychiatry; Emergency Provider Physician Assistant; PCP Family Medicine Adult Medicine; Visit Provider Psychiatry & Neurology Psychiatry
DX: F33.3 Major depressive disorder, recurrent, severe with psychotic symptoms (principal); R45.851 Suicidal ideations; F63.9 Impulse disorder, unspecified; R45.850 Homicidal ideations; F17.210 Nicotine dependence, cigarettes, uncomplicated; F63.81 Intermittent explosive disorder; F43.12 Post-traumatic stress disorder, chronic; F10.10 Alcohol abuse, uncomplicated; Z89.022 Acquired absence of left finger(s); S60.512A Abrasion of left hand, initial encounter; X58.XXXA Exposure to other specified factors, initial encounter; Z91.14 Patient's other noncompliance with medication regimen
CPT/HCPCS: 36415; 80053; 80306; 80307; 81003; 85025; 93005; 99285; G0378

== ENCOUNTER 2020-07-02 17:42 | Inpatient (IN) | payer MEDICARE, MEDICAID, SELFPAY ==
[2020-07-02 18:10] VITALS: BP 148/82; PULSE 118; RESP 18; TEMP 36.9; O2SAT 97; BMI 25.7
--- NOTE | 2020-07-02 22:20 | ECG_ITS ---
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
[2020-07-02] MEDS: ziprasidone hcl 40 mg Capsule PO (22:31)
[2020-07-02 22:45] LABS: Add Urine Microscopic? NO; Charge for UA Resulting for Rev
[2020-07-02 22:47] LABS: Basophils # 0.1 10^3/uL (0.0-0.1); Basophils % 0.9 %; Eosinophils # 0.2 10^3/uL (0.0-0.8); Hematocrit 46.3 % (42.0-52.0); Hemoglobin 15.8 g/dL (11.7-16.6); Lymphocytes # 1.9 10^3/uL (0.8-4.8); Lymphocytes % 24.8 %; Mean Corpuscular HGB Conc 34.1 g/dL (30.0-36.0); Mean Corpuscular Hemoglobin 31.9 pg (28.0-34.0); Mean Corpuscular Volume 93.3 fL (80-94); Mean Platelet Volume 9.5 fL (7.4-10.4); Monocytes # 0.9 10^3/uL (0.2-0.9); Neutrophils % 59.4 %; Nucleated Red Blood Cells % 0 %; Platelet Count 273 10^3/cmm (130-400); Red Blood Count 4.96 10^6/uL (4.1-5.3); Red Cell Distribution Width 11.8 % (12.1-15.1); White Blood Count 7.7 10^3/uL (4.0-10.0)
[2020-07-02 22:50] LABS: Bilirubin Urine Neg (Negative); Blood Urine Neg (Negative); Glucose Urine UA Norm (Normal); Ketones Urine Negative (Negative); Leukocyte Esterase Urine Negative (Negative); Nitrate Urine Negative (Negative); Protein Urine Neg (Negative); Urine Appearance Clear (CLEAR); Urine Color Yellow (Yellow); Urobilinogen Urine Norm (Negative); pH Urine 7 (5-7)
[2020-07-02 22:58] LABS: Amphetamines Screen Urine Negative (Negative); Barbiturates Screen Urine Negative (Negative); Benzodiazepines Screen Urine Negative (Negative); Cocaine Screen Urine Negative (Negative); Opiate Screen Urine Negative (Negative); PCP Screen Urine Negative (Negative); THC Screen Urine Negative (Negative)
[2020-07-02 23:01] LABS: Alanine Aminotransferase 36 U/L (0-41); Albumin Level 4.6 g/dL (3.5-5.2); Alkaline Phosphatase 65 IU/L (40-130); Anion Gap 14.3 (5-19); Aspartate Amino Transferase 23 U/L (0-40); Blood Urea Nitrogen 14 mg/dL (6-20); Calcium 9.5 mg/dL (8.5-10.5); Carbon Dioxide 25 mmol/L (22-29); Chloride 101 mmol/L (98-107); Creatinine Clr Calc Pharmacy 145.6511; Globulin 2.8 g/dL (1.3-4.6); Glucose 104 mg/dL (65-115); Osmolality Calculated 283 mOsm/kg (285-295); Potassium 4.3 mmol/L (3.5-5.1); Sodium 136 mmol/L (136-145); Total Bilirubin 0.4 mg/dL (0.15-1.2); Total Protein 7.4 g/dL (6.6-8.7)
[2020-07-02 23:02] LABS: Acetaminophen < 5.0 ug/mL (10-30); Alcohol Level < 10 mg/dL (0-10); Salicylate < 0.3 mg/dL (3-10)
--- NOTE | 2020-07-02 23:08 | PC.NURSE ---
patient given sandwich by nurse
[2020-07-03 00:07] VITALS: BP 108/60; PULSE 87; PULSE 96; RESP 16; O2SAT 96; O2SAT 97
[2020-07-03 00:47] VITALS: BP 123/83; PULSE 91; RESP 18; TEMP 36.6; O2SAT 96
--- NOTE | 2020-07-03 03:35 | ED_ITS ---
HPI - Psych General: Chief Complaint: Psychiatric Symptoms Stated Complaint: E STRESS UNIT Time Seen by Provider: 07/02/20 17:58 Source: patient Mode of arrival: ambulatory Limitations: no limitations History of Present Illness: HPI Narrative: 44-year-old male patient presents to the emergency department with request to be readmitted to the stress unit. He states was dismissed this morning, states is homeless and does not have a place to stay, states he does not want to sleep on the cold grass. He has medications with him, he has not taken his medication prescribed today. When asked if he was suicidal or homicidal, he states will not answer those questions as he is answered those questions several times today already. He denies hallucinations, history of schizophrenia. MD complaint: other Duration: constant History of same: Yes Relieving factors: none Exacerbating factors: none Associated psychiatric symptoms: other (Schizophrenia) Treatments prior to arrival: none Review of Systems General: Reports: 10 or more systems reviewed and unremarkable except in HPI and below Const: Denies: fever(s), chills or diaphoresis Eyes: Denies: blurry vision or eye redness ENMT: Denies: throat pain, dental pain or disequilibrium Card: Denies: chest pain, palpitations or irregular heart rhythm Resp: Denies: dyspnea, productive cough, non-productive cough or wheezing GI: Denies: abdominal pain, nausea or vomiting : Denies: dysuria Musc: Denies: neck pain, back pain, joint pain or joint warmth Skin/Breast: Denies: rash or pruritus Neuro: Denies: headache(s), weakness in extremities or behavioral changes Psych: Reports: irritability; Denies: anxiety, sleeping more or hopelessness Luis/Lymph: Denies: easy bruising Physical Exam Const: COMMON NORMALS: no acute distress, patient oriented x3, alert and well nourished GENERAL APPEARANCE: cooperative, comfortable, well kempt and well hydrated; not anxious and not ill appearing ORIENTATION/CONSCIOUSNESS: Yes awake, Yes oriented to person, Yes oriented to place and Yes oriented to time; not confused HENMT: COMMON NORMALS: normocephalic, atraumatic, EAC's normal, TM's normal bilaterally, Normal external nose present and moist oral mucous membranes HEAD & SCALP: normocephalic and atraumatic FACE & SINUS: normal facial exam, sinuses nontender and face symmetric NOSE: Normal external nose present EXTERNAL AUDITORY CANAL: EAC's normal TYMPANIC MEMBRANE: TM's normal bilaterally MOUTH: Normal oral and palatal mucosa present, lip normal and tongue normal Eye: COMMON NORMALS: Equal, round and reactive pupils present and EOMs intact bilaterally GENERAL EYE: appearance normal, both eyes and all related structures PUPIL: Yes Equal, round and reactive pupils present Neck/C-Spine: COMMON NORMALS: full ROM and no lymphadenopathy GENERAL: Yes normal visual inspection and Yes trachea midline CERVICAL SPINE: Yes cervical ROM normal Lymph: LYMPHATIC: no lymphadenopathy noted Chest: COMMONS NORMALS: normal inspection of the chest and normal palpation of entire chest wall Resp: COMMON NORMALS: normal respiratory effort, No retractions, No use of accessory muscles and clear to auscultation bilaterally AUSCULTATION: clear to auscultation bilaterally Cardio: COMMON NORMALS: regular rate, regular rhythm, S1 normal heart sound present, S2 normal heart sound present and Peripheral pulses 2+ throughout RATE: regular rate RHYTHM: regular rhythm HEART SOUNDS: S1 normal heart sound present and S2 normal heart sound present PERIPHERAL PULSES: Peripheral pulses 2+ throughout GI: COMMON NORMALS: Normal to inspection, nondistended, normoactive bowel sounds present, Soft to palpation and non-tender INSPECTION: Yes normal to inspection PALPATION: Yes Soft to palpation : COMMON NORMALS: Yes no CVA tenderness BLADDER/KIDNEY EXAM: Yes no CVA tenderness Back/Pelvis: COMMON NORMALS: no CVA tenderness and thoracic and lumbar spine normal to inspection Extremity: COMMON NORMALS: normal to inspection and capillary refill normal Neuro: COMMON NORMALS: patient oriented x3 and no focal motor deficits SENSORIUM/ORIENTATION: Yes alert, Yes oriented to person, Yes oriented to place and Yes oriented to time Psych: COMMON NORMALS: mental status grossly normal and cooperative APPEARANCE: Yes well kempt ATTITUDE: Yes bizarre, Yes evasive and Yes agitated ACTIVITY/MOTOR BEHAVIOR: Yes appropriate eye contact SPEECH: Yes excessive MOOD & AFFECT: Yes Flat affect present THOUGHT PROCESS: Ci rcumstantial thought process present THOUGHT CONTENT: Yes Normal thought content present ATTENTION/CONCENTRATION: Yes attention grossly intact MEMORY/COGNITION: Yes memory grossly intact INSIGHT: Good insight present (Ps ych) JUDGEMENT: Good judgement present (Psych) Skin: COMMON NORMALS: no rashes or lesions noted, no wounds, turgor normal, no petechiae and no mottling GENERAL SKIN EXAM: no rashes or lesions noted, elasticity normal and turgor normal Course Consultations: Consultation #1: Dr. Cuevas, discussed patient's agitated, bizarre behavior, he is well-known to Dr. Cuevas. Dr. Cuevas states patient left this morning despite recommendation to stay until Sunday. Urine drug screen negative, EtOH negative, remaining serology findings without acute abnormality. Per Dr. Cuevas, place patient in [facility] you, he will see him tomorrow. Diagnosis schizophrenia Time: 23:03 Vital Signs: Vital signs: Vital Signs Temperature 97.8 F 07/03/20 00:47 Pulse Rate 91 07/03/20 00:47 Respiratory Rate 18 07/03/20 00:47 Blood Pressure 123/83 07/03/20 00:47 Pulse Oximetry 96 07/03/20 00:47 MDM - Psych MDM Narrative: Medical decision making narrative: 44-year-old male patient presents to the emergency department with request for stress unit admission. He has history of schizophrenia, bizarre behavior today with agitation noted, Geodon was administered and effective with behavior/agitation. Spoke with Dr. Cuevas who accepted admission. Lab Data: Labs: Lab Results 07/02/20 07/02/20 07/02/20 Range/Units 22:36 22:36 22:36 WBC 7.7 (4.0-10.0) 10^3/ uL RBC 4.96 (4.1-5.3) 10^6/u L Hgb 15.8 (11.7-16.6) g/dL Hct 46.3 (42.0-52.0) % MCV 93.3 (80-94) fL MCH 31.9 (28.0-34.0) pg MCHC 34.1 (30.0-36.0) g/dL RDW 11.8 L (12.1-15.1) % Plt Count 273 (130-400) 10^3/c mm MPV 9.5 (7.4-10.4) fL Neut % (Auto) 59.4 % Lymph % (Auto) 24.8 % [place] % (Auto) 11.0 % Eos % (Auto) 3.0 % Baso % (Auto) 0.9 % Neut # (Auto) 4.60 (1.8-7.7) 10^3/u L Lymph # (Auto) 1.9 (0.8-4.8) 10^3/u L [place] # (Auto) 0.9 (0.2-0.9) 10^3/u L Eos # (Auto) 0.2 (0.0-0.8) 10^3/u L Baso # (Auto) 0.1 (0.0-0.1) 10^3/u L Nucleated RBC % (a uto) 0 % Nucleated RBCs # 0.0 /100WBC Sodium 136 (136-145) mmol/L Potassium 4.3 (3.5-5.1) mmol/L Chloride 101 (98-107) mmol/L Carbon Dioxide 25 (22-29) mmol/L Anion Gap 14.3 (5-19) BUN 14 (6-20) mg/dL Creatinine 0.8 (0.7-1.2) mg/dL GFR Calculation 106.0 (90-130) mL/min Glucose 104 (65-115) mg/dL Calculated Osmolal ity 283 L (285-295) mOsm/k g Calcium 9.5 (8.5-10.5) mg/dL Total Bilirubin 0.4 (0.15-1.2) mg/dL AST 23 (0-40) U/L ALT 36 (0-41) U/L Alkaline Phosphata se 65 (40-130) IU/L Total Protein 7.4 (6.6-8.7) g/dL Albumin 4.6 (3.5-5.2) g/dL Globulin 2.8 (1.3-4.6) g/dL Urine Color Yellow (Yellow) Urine Appearance Clear (CLEAR) Urine pH 7 (5-7) Ur Specific Gravit y 1.010 (1.005-1.030) Urine Protein Neg (Negative) Urine Glucose (UA) Norm (Normal) Urine Ketones Negative (Negative) Urine Blood Neg (Negative) Urine Nitrate Negative (Negative) Urine Bilirubin Neg (Negative) Urine Urobilinogen Norm (Negative) mg/dL Ur Leukocyte Naida ase Negative (Negative) Salicylates < 0.3 L (3-10) mg/dL Urine Opiates Scre en (Negative) ng/mL Acetaminophen < 5.0 L (10-30) ug/mL Ur Barbiturates Sc reen (Negative) ng/mL Ur Phencyclidine S crn (Negative) ng/mL Ur Amphetamines Sc reen (Negative) ng/mL U Benzodiazepines Scrn (Negative) ng/mL Urine Cocaine Scre en (Negative) ng/mL U Marijuana (THC) Screen (Negative) ng/mL Ethyl Alcohol < 10 (0-10) mg/dL 07/02/20 Range/Units 22:36 WBC (4.0-10.0) 10^3/ uL RBC (4.1-5.3) 10^6/u L Hgb (11.7-16.6) g/dL Hct (42.0-52.0) % MCV (80-94) fL MCH (28.0-34.0) pg MCHC (30.0-36.0) g/dL RDW (12.1-15.1) % Plt Count (130-400) 10^3/c mm MPV (7.4-10.4) fL Neut % (Auto) % Lymph % (Auto) % [place] % (Auto) % Eos % (Auto) % Baso % (Auto) % Neut # (Auto) (1.8-7.7) 10^3/u L Lymph # (Auto) (0.8-4.8) 10^3/u L [place] # (Auto) (0.2-0.9) 10^3/u L Eos # (Auto) (0.0-0.8) 10^3/u L Baso # (Auto) (0.0-0.1) 10^3/u L Nucleated RBC % (a uto) % Nucleated RBCs # /100WBC Sodium (136-145) mmol/L Potassium (3.5-5.1) mmol/L Chloride (98-107) mmol/L Carbon Dioxide (22-29) mmol/L Anion Gap (5-19) BUN (6-20) mg/dL Creatinine (0.7-1.2) mg/dL GFR Calculation (90-130) mL/min Glucose (65-115) mg/dL Calculated Osmolal ity (285-295) mOsm/k g Calcium (8.5-10.5) mg/dL Total Bilirubin (0.15-1.2) mg/dL AST (0-40) U/L ALT (0-41) U/L Alkaline Phosphata se (40-130) IU/L Total Protein (6.6-8.7) g/dL Albumin (3.5-5.2) g/dL Globulin (1.3-4.6) g/dL Urine Color (Yellow) Urine Appearance (CLEAR) Urine pH (5-7) Ur Specific Gravit y (1.005-1.030) Urine Protein (Negative) Urine Glucose (UA) (Normal) Urine Ketones (Negative) Urine Blood (Negative) Urine Nitrate (Negative) Urine Bilirubin (Negative) Urine Urobilinogen (Negative) mg/dL Ur Leukocyte Naida ase (Negative) Salicylates (3-10) mg/dL Urine Opiates Scre en Negative (Negative) ng/mL Acetaminophen (10-30) ug/mL Ur Barbiturates Sc reen Negative (Negative) ng/mL Ur Phencyclidine S crn Negative (Negative) ng/mL Ur Amphetamines Sc reen Negative (Negative) ng/mL U Benzodiazepines Scrn Negative (Negative) ng/mL Urine Cocaine Scre en Negative (Negative) ng/mL U Marijuana (THC) Screen Negative (Negative) ng/mL Ethyl Alcohol (0-10) mg/dL Discharge Plan Discharge Admit Provider: Tano Cuevas Coding Level of Care Code ED Seat Scooper Machine for Maria G Mccauley
[2020-07-03 06:00] VITALS: BP 127/76; PULSE 81; RESP 18; TEMP 36.6; O2SAT 98
[2020-07-03] MEDS: ziprasidone hcl 40 mg Capsule PO ×2 (06:05→16:30)
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
[2020-07-03] MEDS: OLANZapine 5 mg TABLET PO ×2 (08:21→16:30)
[2020-07-03] MEDS: thiamine 100 mg Tablet PO (08:21)
[2020-07-03 13:57] VITALS: BP 123/81; PULSE 82; RESP 16; TEMP 36.8; O2SAT 96
[2020-07-03 20:53] VITALS: BP 115/72; PULSE 86; RESP 18; TEMP 37; O2SAT 96
[2020-07-03] MEDS: hyDROXYzine 25 mg Capsule 50 MG PO (21:09)
[2020-07-03] MEDS: trazodone 50 mg Tablet PO (21:10)
[2020-07-04] MEDS: OLANZapine 5 mg ODT PO (02:25)
--- NOTE | 2020-07-04 02:25 | PC.NURSE ---
patient came to nurses station stating that he was anxious and could not sleep; beginning to get agitated. 5mg Zyprexa given PO.
[2020-07-04 06:00] VITALS: BP 124/70; PULSE 100; RESP 18; TEMP 36.6; O2SAT 98
[2020-07-04] MEDS: thiamine 100 mg Tablet PO (07:46)
[2020-07-04] MEDS: OLANZapine 5 mg TABLET PO ×2 (07:46→20:07)
[2020-07-04] MEDS: ziprasidone hcl 60 mg Capsule PO ×2 (07:46→16:17)
[2020-07-04 14:00] VITALS: BP 132/72; PULSE 107; RESP 18; TEMP 36.5; O2SAT 96
--- NOTE | 2020-07-04 15:35 | P.PN_ITS ---
Subjective NPU Subjective: Interval history: Damages today reporting that things are going okay. He denies any issues with the increase of the medication. He did see me with a stereotypical hip handshake that he feels a need to do every reach this public relations writer. We discussed working with the treatment team tomorrow to make sure that he will have appropriate dizziness time in collaboration with his mother who is his payee at least. Mental Status Exam MSE Comments: This is a well-nourished, well-developed white male in hospital scrubs with improving grooming and appropriate eye contact. He is missing 2 digits on his left hand. No abnormal movements except for mild psychomotor retardation. Cooperative with exam in no acute distress. Speech was more normal rate and volume with difficulty with pronunciation of R's. Mood described as a little better , affect calm. Thought process mostly organized. Thought content: Patient denied suicidal or homicidal ideation, there were no delusions reported but there was some odd thinking noted, he denied specific auditory or visual hallucinations. Attention and concentration were intact and memory was improving but none were formally tested. He is alert and oriented x3. Insight and judgment are improving and impulse control is limited, but imp roving. Vitals/I&O/Wt Last Vital Signs Temp 98.6 F 07/04/20 21:42 Pulse 105 H 07/04/20 21:42 Resp 17 07/04/20 21:42 BP 126/78 07/04/20 21:42 Pulse Ox 96 07/04/20 21:42 Weight last 48 hrs Weight 90.718 kg Data NPU : 07/02/20 22:36 07/02/20 22:36 A&P Additional A&P Information (2) Suicidal ideation: (3) Impulse control disorder, unspecified: (4) Abrasion hand: (5) Major depressive disorder, recurrent, severe with psychotic features: (6) History of post traumatic stress disorder: Additional A&P Information This is a 44-year-old white male with a long history of addiction and mental health treatment with discharge from this inpatient hospitalization yesterday with ongoing difficulties with depression and lethality. He did not drink during the time he was gone even though he had access to alcohol, acknowledges that he had a few cigarettes but identified that he was really getting worked up in his psychosocial situation. 1. Continue current medication. 2. Continue every 15 minute checks for safety. 3. Encourage individual, group and milieu therapies. 4. Encourage sober living treatment after discharge at the highest level of care to which he is willing to commit. Involuntary Hold Information 96 Hour Hold: 96 Hour Involuntary Admission: No 96 Hour Hold Ending Date: 07/02/20 96 Hour Hold Ending Time: 12:54 Attestations NPU Medical Necessity Statement*: Inpatient hospitalization is medically necessary and the clinically appropriate intervention at this time. We will monitor medications and make changes as indicated. Patient will be in the hospital for over two midnights. Likely length of stay 1-3 days. Coding Level of Care Code Acute Brewery Cellar Worker for Maria G Mccauley
[2020-07-04] MEDS: trazodone 50 mg Tablet PO (20:31)
[2020-07-04] MEDS: hyDROXYzine 25 mg Capsule 50 MG PO (20:31)
--- NOTE | 2020-07-04 21:38 | PC.NURSE ---
2030 Pt requested Trazadone 50mg PO and Vistaril 50mg po for sleep and anxiety.
[2020-07-04 21:42] VITALS: BP 126/78; PULSE 105; RESP 17; TEMP 37; O2SAT 96
[2020-07-05] MEDS: simethicone 80 mg Chew PO (04:33)
[2020-07-05] MEDS: hyDROXYzine 25 mg Capsule 50 MG PO ×2 (04:38→13:08)
--- NOTE | 2020-07-05 04:38 | PC.NURSE ---
0438 Pt requested vistaril 50mg po for anxiety. C/O Reflux indigestion gave simethicone 80mg PO
[2020-07-05 06:00] VITALS: BP 130/85; PULSE 97; RESP 16; TEMP 36.3; O2SAT 95
[2020-07-05] MEDS: ziprasidone hcl 60 mg Capsule PO (06:03)
[2020-07-05] MEDS: OLANZapine 5 mg TABLET PO (09:30)
[2020-07-05] MEDS: thiamine 100 mg Tablet PO (09:30)
--- NOTE | 2020-07-05 13:09 | PC.NURSE ---
Administered Vistaril 50 mg PO, for patient C/O increasing anxiety. Patient has been pacing the hallway and stating he is ready to leave. Nurse will continue to monitor.
[2020-07-05] MEDS: calcium carbonate 500 mg Chew Tablet PO (13:53)
[2020-07-05 14:00] VITALS: BP 134/90; PULSE 108; RESP 17; TEMP 37; O2SAT 95
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
[2020-07-05 15:36] VITALS: BP 134/90; PULSE 108; RESP 17; TEMP 37; O2SAT 95
== END 2020-07-05 16:55 | disposition home or self-care (01) | DRG 885 ==
LOC: ER 21:53 → NP 23:37
PROVIDERS: Admitting Provider Psychiatry & Neurology Psychiatry; Emergency Provider Nurse Practitioner Family; PCP Family Medicine Adult Medicine; Visit Provider Psychiatry & Neurology Psychiatry
DX: F33.3 Major depressive disorder, recurrent, severe with psychotic symptoms (principal); F63.81 Intermittent explosive disorder; F43.12 Post-traumatic stress disorder, chronic; F63.9 Impulse disorder, unspecified; F10.10 Alcohol abuse, uncomplicated; Y90.0 Blood alcohol level of less than 20 mg/100 ml; F17.210 Nicotine dependence, cigarettes, uncomplicated; Z91.5 Personal history of self-harm; Z59.0 Homelessness; Z89.022 Acquired absence of left finger(s); Z62.810 Personal history of physical and sexual abuse in childhood
CPT/HCPCS: 80053; 80306; 80307; 81003; 85025; 93005; 99285

== ENCOUNTER 2020-07-07 03:28 | Emergency (ER) | payer MEDICARE, MEDICAID, SELFPAY ==
[2020-07-07 03:29] VITALS: BP 126/87; PULSE 90; RESP 22; TEMP 36.4; O2SAT 93; BMI 23.1
--- NOTE | 2020-07-07 03:31 | ED_ITS ---
HPI - Alcohol General: Chief Complaint: Alcohol Stated Complaint: ETOH Time Seen by Provider: 07/07/20 03:29 Source: patient and EMS Mode of arrival: EMS Limitations: other (intoxicated) History of Present Illness: HPI narrative: 44-year-old male is here by EMS for alcohol intoxication. Please were called to hotel as he was quite intoxicated there and called EMS. Patient will awake and answer some my questions but is very intoxicated. He denies SI and HI. He states he has had too much to drink tonight. He denies any pain anywhere. Denies any injuries. Denies any wors ening improving factors. Associated symptoms: Deny abdominal pain, depression, nausea or vomiting Review of Systems Const: Denies: fever(s), chills, body aches or change in appetite Eyes: Denies: blurry vision or eye discomfort ENMT: Denies: throat pain or dental pain Card: Denies: chest pain Resp: Denies: dyspnea GI: Denies: abdominal pain, nausea, vomiting or diarrhea : Denies: dysuria Musc: Denies: neck pain or back pain Skin/Breast: Denies: rash Neuro: Denies: headache(s) Psych: Denies: depression Luis/Lymph: Denies: easy bruising All/Imm: Denies: urticaria Physical Exam Const: COMMON NORMALS: patient oriented x3 GENERAL APPEARANCE: disheveled OTHER: intoxicated HENMT: COMMON NORMALS: normocephalic and atraumatic HEAD & SCALP: normocephalic and atraumatic Eye: COMMON NORMALS: Equal, round and reactive pupils present and EOMs intact bilaterally PUPIL: Yes Equal, round and reactive pupils present Neck/C-Spine: COMMON NORMALS: full ROM and supple Chest: COMMONS NORMALS: normal inspection of the chest and normal palpation of entire chest wall Resp: COMMON NORMALS: normal respiratory effort, No retractions, No use of accessory muscles and clear to auscultation bilaterally AUSCULTATION: clear to auscultation bilaterally Cardio: COMMON NORMALS: regular rate, regular rhythm and No murmurs present (Cardio) RATE: regular rate RHYTHM: regular rhythm GI: COMMON NORMALS: Normal to inspection, nondistended, normoactive bowel sounds present, Soft to palpation, non-tender and no masses PALPATION: Yes Soft to palpation Extremity: COMMON NORMALS: normal to inspection and full ROM Neuro: COMMON NORMALS: patient oriented x3, moves all extremities and no focal motor deficits Psych: COMMON NORMALS: mental status grossly normal, Normal thought process present and cooperative THOUGHT PROCESS: Normal thought process present Skin: COMMON NORMALS: no rashes or lesions noted and no wounds GENERAL SKIN EXAM: no rashes or lesions noted Course Vital Signs: Vital signs: Vital Signs Temperature 96.0 F L 07/07/20 05:09 Pulse Rate 78 07/07/20 05:09 Respiratory Rate 16 07/07/20 05:09 Blood Pressure 146/72 07/07/20 05:09 Pulse Oximetry 94 07/07/20 05:09 MDM - Alcohol MDM Narrative: Medical decision making narrative: Patient presents here with alcohol intoxication. He is not suicidal homicidal. Patient is stable for discharge. He is awake and alert and able to ambulate. He is not a threat to himself or others. Discharge Plan Discharge Patient Disposition: Home Clinical Impression: Alcoholic intoxication Qualifiers: Complication of substance-induced condition: uncomplicated Qualified Code(s): F10.920 - Alcohol use, unspecified with intoxication, uncomplicated Condition: Stable Prescriptions: No Action olanzapine 5 mg Tablet 5 mg PO BID 30 Days Qty: 60 RF: 1 thiamine mononitrate (vit B1) [Vitamin B-1 (mononitrate)] 100 mg Tablet 100 mg PO DAILY 30 Days Qty: 30 RF: 1 ziprasidone HCl 60 mg Capsule 60 mg PO 0700,1700 30 Days Qty: 60 RF: 1 Discharge Orders: Discharge ED (Routine); Ordered 07/07/20 Ordered By: Laura Cortez Referrals: Kip Mercedes MD [Primary Care Provider] - 1-3 days Discharge Diet: Advance as tolerated Discharge Activity: Resume usual activity Patient Instructions: Alcohol Intoxication (ED) Coding Level of Care Code 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
[2020-07-07] MEDS: multivitamin therapeutic Tablet 1 TAB PO (03:58)
[2020-07-07] MEDS: ondansetron 2 mg/ML SDV 2 mL 4 MG IM (03:59)
--- NOTE | 2020-07-07 04:26 | PC.NURSE ---
0400: pt starts to yell, spit and became verbally agressive to staff. Called security as pt. is highly intoxicated and unable to stand by himself. Pt refuses to sit and continues to remain unsteady. Security could not get pt to remain in bed, continues to sway back and forth and is unsteady. 0430: Pt continues with same behaviors. PD called to come and take pt, as he is non compliant with all staffs request to get back on the stretcher for safety. 0440: PD here, encouraging pt to stay in bed.
[2020-07-07 05:09] VITALS: BP 146/72; PULSE 78; RESP 16; TEMP 35.6; O2SAT 94
--- NOTE | 2020-07-07 06:42 | PC.NURSE ---
0545: PD left as pt fell asleep. This RN is watching pt at door for safety.
--- NOTE | 2020-07-07 08:35 | PC.NURSE ---
pt awake. pt is yelling loudly about being disrespected in this hospital . This nurse, ED Charge Nurse, and security personnel at bedside to de-escalate situation. pt offered oral fluids. staff trying to verbally reason with Pt to expedite his departure from facility. security remains at bedside.
== END 2020-07-07 08:57 | disposition home or self-care (01) ==
PROVIDERS: Emergency Provider Emergency Medicine; PCP Family Medicine Adult Medicine
DX: F10.920 Alcohol use, unspecified with intoxication, uncomplicated (principal)
CPT/HCPCS: 96372; 99283; J2405; J3411

== ENCOUNTER → 2020-07-13 09:59 | Outpatient (BNVA) | payer MEDICARE, MEDICAID, SELFPAY | PROVIDERS: PCP Family Medicine Adult Medicine; Visit Provider Social Worker | DX: F33.3 Major depressive disorder, recurrent, severe with psychotic symptoms; F63.9 Impulse disorder, unspecified; F10.920 Alcohol use, unspecified with intoxication, uncomplicated | CPT/HCPCS: 90834 ==

== ENCOUNTER → 2020-07-16 14:18 | Outpatient (BNVA) | payer MEDICARE, MEDICAID, SELFPAY | PROVIDERS: PCP Family Medicine Adult Medicine; Visit Provider Psychiatry & Neurology Psychiatry | DX: F33.2 Major depressive disorder, recurrent severe without psychotic features (principal); F43.12 Post-traumatic stress disorder, chronic; F10.20 Alcohol dependence, uncomplicated; F17.200 Nicotine dependence, unspecified, uncomplicated; F63.81 Intermittent explosive disorder; F41.1 Generalized anxiety disorder | CPT/HCPCS: 99204 ==

== ENCOUNTER → 2020-08-10 12:57 | Outpatient (BNVA) | payer MEDICARE, MEDICAID, SELFPAY | PROVIDERS: PCP Family Medicine Adult Medicine; Visit Provider Psychiatry & Neurology Psychiatry | DX: F63.81 Intermittent explosive disorder (principal); F17.200 Nicotine dependence, unspecified, uncomplicated; F43.12 Post-traumatic stress disorder, chronic; F33.2 Major depressive disorder, recurrent severe without psychotic features; F10.20 Alcohol dependence, uncomplicated | CPT/HCPCS: 99214 ==

== ENCOUNTER → 2021-03-01 12:30 | Outpatient (BNVA) | payer MEDICAID, SELFPAY | PROVIDERS: PCP Family Medicine Adult Medicine; Visit Provider Social Worker | DX: F33.3 Major depressive disorder, recurrent, severe with psychotic symptoms (principal); Z86.59 Personal history of other mental and behavioral disorders; F63.9 Impulse disorder, unspecified | CPT/HCPCS: 90832 ==

== ENCOUNTER → 2021-03-14 11:00 | Outpatient (BNVA) | payer MEDICAID, SELFPAY | PROVIDERS: PCP Family Medicine Adult Medicine; Visit Provider Social Worker | DX: F33.3 Major depressive disorder, recurrent, severe with psychotic symptoms (principal); Z86.59 Personal history of other mental and behavioral disorders; F63.9 Impulse disorder, unspecified | CPT/HCPCS: 90832 ==

== ENCOUNTER → 2021-03-28 12:39 | Outpatient (BNVA) | payer MEDICAID, SELFPAY | PROVIDERS: PCP Family Medicine Adult Medicine; Visit Provider Social Worker | DX: F33.3 Major depressive disorder, recurrent, severe with psychotic symptoms (principal); Z86.59 Personal history of other mental and behavioral disorders; F63.9 Impulse disorder, unspecified | CPT/HCPCS: 90834 ==

== ENCOUNTER → 2021-04-11 12:30 | Outpatient (BNVA) | payer MEDICAID, SELFPAY | PROVIDERS: PCP Family Medicine Adult Medicine; Visit Provider Social Worker | DX: F33.3 Major depressive disorder, recurrent, severe with psychotic symptoms (principal); Z86.59 Personal history of other mental and behavioral disorders; F63.9 Impulse disorder, unspecified | CPT/HCPCS: 90832 ==

== ENCOUNTER 2021-11-20 02:32 | Emergency (ER) | payer MEDICARE, MEDICAID, SELFPAY ==
[2021-11-20] VITALS (7 sets, daily range): BP systolic 145–168; BP diastolic 96–113; PULSE 110–118; RESP 19–22; TEMP 36.6; O2SAT 95–98; BMI 27.1
--- NOTE | 2021-11-20 02:43 | XRR_ITS ---
PROCEDURE INFORMATION: Exam: XR Left Ribs with PA Chest Exam date and time: 11/20/2021 3:02 AM Age: 46 years old Clinical indication: Injury or trauma; Fall; Rib area, left side; Blunt trauma; Additional info: Fall left rib pain TECHNIQUE: Imaging protocol: Radiologic exam of the Left ribs with PA chest. Views: 3 views COMPARISON: CR XR chest 1V portable [id number] 06/09/2020 12:10 PM FINDINGS: Lungs: Unremarkable. No consolidation. Pleural spaces: Unremarkable. No pleural effusion. No pneumothorax. Heart/Mediastinum: Unremarkable. No cardiomegaly. Bones/joints: Unremarkable. XR/XR ribs LT mn 3V w CXR1V [id number] IMPRESSION: No acute findings.
--- NOTE | 2021-11-20 02:43 | XRR_ITS ---
PROCEDURE INFORMATION: Exam: XR Right Femur Exam date and time: 11/20/2021 3:11 AM Age: 46 years old Clinical indication: Injury or trauma; Fall; Blunt trauma; Thigh or upper leg; Right; Additional info: Fall thigh pain TECHNIQUE: Imaging protocol: Radiologic exam of the Right femur. Views: 2 views. COMPARISON: CT chest abd pel w con* 10/07/2019 9:00 PM FINDINGS: Bones/joints: Unremarkable. No acute fracture. Soft tissues: Unremarkable. XR/XR femur RT min 2V* [id number] IMPRESSION: No acute findings.
--- NOTE | 2021-11-20 02:43 | XRR_ITS ---
PROCEDURE INFORMATION: Exam: XR Right Tibia and Fibula Exam date and time: 11/20/2021 3:17 AM Age: 46 years old Clinical indication: Injury or trauma; Fall; Blunt trauma; Lower leg; Right; Prior surgery; Surgery date: 6+ months; Additional info: Fall leg pain TECHNIQUE: Imaging protocol: Radiologic exam of the Right tibia and fibula. Views: 2 views. COMPARISON: No relevant prior studies available. FINDINGS: Bones/joints: Status post open reduction internal fixation a fracture diastasis of distal right tibial diametaphysis and distal tibiofibular joint. Soft tissues: See Bones/joints finding. XR/XR tibia fibula RT 2V [id number] IMPRESSION: 1. There are no acute osseous findings.
[2021-11-20] MEDS: oxyCODONE-APAP 5-325 mg Tablet 1 TAB PO (02:47)
--- NOTE | 2021-11-20 02:51 | W.ED.FALL ---
HPI - Fall General: Chief Complaint: Fall Stated Complaint: RIB/LEG PAIN Time Seen by Provider: 11/20/21 02:37 Source: patient History of Present Illness: 46-year-old intoxicated male who fell in his trailer this morning. He injured his left chest and right leg he says. He is complaining of right ankle, and femur pain as well as left-sided chest discomfort. He is not short of breath. He did not hit his head. He is not on anticoagulants. There are no lacerations, no significant bruising. He remembers the event. MD complaint: fall Onset (ago): hour(s) Fall from: standing Fall witnessed: no Place fall occurred: home Loss of consciousness: None Prolonged down time: no Symptoms prior to fall: none Context: tripped/slipped Location of injury: chest Location of injury - extremities: Right: thigh and lower leg Associated symptoms-after fall: Reports chest pain; Denies abdominal pain, confusion, headache(s), neck pain, numbness or short of breath Review of Systems Const: Denies: fever(s) Card: Reports: chest pain Resp: Denies: dyspnea, productive cough, non-productive cough or hemoptysis GI: Denies: abdominal pain : Denies: flank pain Musc: Denies: neck pain Neuro: Denies: headache(s) or confusion PFS ED PFSH: Medical History Psychiatric care Social History Smoking and tobacco status: current every day smoker cigarettes Packs smoked per day: 1 Years cigarettes smoked: 22 Quit status (tobacco): has tried quititng Number of times tried to quit tobacco: 2 Second hand smoke exposure: No Physical Exam Const: COMMON NORMALS: no acute distress and alert GENERAL APPEARANCE: cooperative and comfortable; not ill appearing ORIENTATION/CONSCIOUSNESS: Yes oriented to person, Yes oriented to place and Yes oriented to time (Loosely) HENMT: COMMON NORMALS: normocephalic, atraumatic and Normal external nose present HEAD & SCALP: normocephalic and atraumatic FACE & SINUS: normal facial exam and face symmetric NOSE: Normal external nose present Eye: COMMON NORMALS: Equal, round and reactive pupils present and EOMs intact bilaterally PUPIL: Yes Equal, round and reactive pupils present Neck/C-Spine: COMMON NORMALS: full ROM GENERAL: Yes trachea midline CERVICAL SPINE: No Cervical spine tenderness Chest: COMMONS NORMALS: normal inspection of the chest CHEST: Yes Symmetrical chest wall rise and Yes tenderness (Mild left anterior) Resp: COMMON NORMALS: normal respiratory effort, No use of accessory muscles and clear to auscultation bilaterally AUSCULTATION: clear to auscultation bilaterally Cardio: COMMON NORMALS: regular rate and regular rhythm RATE: regular rate RHYTHM: regular rhythm GI: COMMON NORMALS: Normal to inspection, nondistended, normoactive bowel sounds present, Soft to palpation and non-tender PALPATION: Yes Soft to palpation Extremity: NARRATIVE EXTREMITY EXAM: Exam of the right thigh reveals no deformity. There is some pain with internal rotation. No swelling. Minimal reproducible pain with palpation. Exam of the right leg reveals tenderness over the ATFL at the ankle. There is no foot tenderness. There is no deformity. There is minimal soft tissue swelling over the lateral ankle. There is no proximal fibular or tibial tenderness. Neuro: SENSORIUM/ORIENTATION: Yes alert, Yes oriented to person, Yes oriented to place and Yes oriented to time (Loosely) Course Vital Signs: Vital signs: Vital Signs Temperature 97.9 F 11/20/21 02:35 Pulse Rate 110 H 11/20/21 03:09 Respiratory Rate 20 H 11/20/21 03:09 Blood Pressure 145/96 11/20/21 03:09 Pulse Oximetry 97 11/20/21 03:09 Oxygen Delivery Me thod 11/20/21 02:37 MDM - Fall Medical Decision Making X-rays are negative for fracture. There is some soft tissue swelling over the lateral ankle. He likely sprained his ankle. He will be allowed discharge. Discharge Plan Discharge Patient Disposition: Home Clinical Impression: Chest wall contusion, Right ankle sprain, Alcohol intoxication Condition: Stable Prescriptions: New ketorolac 10 mg tablet 10 mg PO TID PRN (Reason: pain) Qty: 10 0RF No Action naltrexone 50 mg tablet 50 mg PO DAILY Qty: 30 2RF risperidone [Risperdal] 1 mg tablet 1 mg PO BID Qty: 60 2RF thiamine mononitrate (vit B1) [Vitamin B-1 (mononitrate)] 100 mg Tablet 100 mg PO DAILY 30 Days Qty: 30 1RF Discharge Orders: Discharge ED (Routine); Ordered 11/20/21 Ordered By: Onel Phillips Patient Instructions: Ankle Sprain (ED), Alcohol Intoxication (ED), Chest Wall Pain (ED), Opioid Safety, Pain Management Activity Restrictions/Additional Instructions: See your doctor next week and follow-up. You may begin to bear weight as tolerated on your leg. Return for worsening chest discomfort, or shortness of breath despite treatment, fever, cough, worsening leg or ankle pain, other concerning symptoms. Abstain from alcohol. Coding Level of Care Code ED Gas Well Pumper for Chg Fwd Exam Comprehensive
== END 2021-11-20 04:00 | disposition home or self-care (01) ==
PROVIDERS: Emergency Provider Emergency Medicine
DX: S20.219A Contusion of unspecified front wall of thorax, initial encounter (principal); S93.401A Sprain of unspecified ligament of right ankle, initial encounter; F10.129 Alcohol abuse with intoxication, unspecified; Y90.9 Presence of alcohol in blood, level not specified; F17.210 Nicotine dependence, cigarettes, uncomplicated; W19.XXXA Unspecified fall, initial encounter
CPT/HCPCS: 71101; 73552; 73590; 99283

== ENCOUNTER 2022-04-03 21:21 | Inpatient (IN) | payer MEDICARE, MEDICAID, SELFPAY ==
[2022-04-03 21:22] VITALS: BMI 29.8
[2022-04-03 21:26] VITALS: BP 165/119; PULSE 117; RESP 20; TEMP 36.8; O2SAT 98
--- NOTE | 2022-04-03 21:26 | ED.C_ITS ---
HPI - Psych General: Chief Complaint: Psychiatric Symptoms Stated Complaint: 96 hour hold Time Seen by Provider: 04/03/22 21:22 Source: patient and police Mode of arrival: other (police) Limitations: no limitations History of Present Illness: 46-year-old male is brought in by police under 96- hour hold he states he has been under a lot of stress he has been increasingly depressed he denies any suicidal ideations to me but did to the police he has no specific plans denies any worsening proving factors. Associated symptoms: Reports depression Review of Systems Const: Denies: fever(s), chills, body aches or change in appetite Eyes: Denies: blurry vision or eye discomfort ENMT: Denies: throat pain or dental pain Card: Denies: chest pain Resp: Denies: dyspnea GI: Denies: abdominal pain, nausea, vomiting or diarrhea : Denies: dysuria Musc: Denies: neck pain or back pain Skin/Breast: Denies: rash Neuro: Denies: headache(s) Psych: Reports: depression Luis/Lymph: Denies: easy bruising All/Imm: Denies: urticaria PFSH ED PFSH: Medical History Psychiatric care Social History Smoking and tobacco status: current every day smoker cigarettes Packs smoked per day: 1 Years cigarettes smoked: 22 Quit status (tobacco): has tried quititng Number of times tried to quit tobacco: 2 Second hand smoke exposure: No Physical Exam Const: COMMON NORMALS: no acute distress, patient oriented x3 and healthy appearing HENMT: COMMON NORMALS: normocephalic and atraumatic HEAD & SCALP: normocephalic and atraumatic Eye: COMMON NORMALS: Equal, round and reactive pupils present and EOMs intact bilaterally PUPIL: Yes Equal, round and reactive pupils present Neck/C-Spine: COMMON NORMALS: full ROM and supple Chest: COMMONS NORMALS: normal inspection of the chest and normal palpation of entire chest wall Resp: COMMON NORMALS: normal respiratory effort, No retractions, No use of accessory muscles and clear to auscultation bilaterally AUSCULTATION: clear to auscultation bilaterally Cardio: COMMON NORMALS: regular rate, regular rhythm and No murmurs present (Cardio) RATE: regular rate RHYTHM: regular rhythm GI: COMMON NORMALS: Normal to inspection, nondistended, normoactive bowel sounds present, Soft to palpation, non-tender and no masses PALPATION: Yes Soft to palpation Extremity: COMMON NORMALS: normal to inspection and full ROM Neuro: COMMON NORMALS: patient oriented x3, moves all extremities and no focal motor deficits Psych: COMMON NORMALS: mental status grossly normal, Normal thought process present and cooperative MOOD & AFFECT: Yes depressed mood THOUGHT PROCESS: Normal thought process present Skin: COMMON NORMALS: no rashes or lesions noted and no wounds GENERAL SKIN EXAM: no rashes or lesions noted Course Vital Signs: Vital signs: Vital Signs Temperature 98.3 F 04/03/22 21: Pulse Rate 117 H 04/03/22 21: Respiratory Rate 20 H 04/03/22 21:26 Blood Pressure 150/98 04/03/22 21:31 Pulse Oximetry 98 04/03/22 21: Oxygen Delivery Me thod 04/03/22 21:26 [facility] - Psych Medical Decision Making Patient presents with depression with suicidal ideation he is on a 96-hour court order hold I spoke to Dr. Horn patient is medically cleared will admit to the psych unit. Lab Data 04/03/22 21:25 04/03/22 21:25 Laboratory Results WBC 7.8 10^3/uL (4.0-10.0) 04/03/22 21:25 RBC 5.05 10^6/uL (4.1-5.3) 04/03/22 21:25 Hgb 15.4 g/dL (11.7-16.6) 04/03/22 21:25 Hct 45.1 % (42.0-52.0) 04/03/22 21:25 MCV 89.3 fl (80-94) 04/03/22 21:25 MCH 30.5 pg (28.0-34.0) 04/03/22 21: MCHC 34.1 g/dL (30.0-36.0) 04/03/22 21:25 RDW 12.5 % (12.1-15.1) 04/03/22 21: Plt Count 274 10^3/cmm (130-400) 04/03/22 21:25 MPV 9.2 fL (7.4-10.4) 04/03/22 21:25 Neut % (Auto) 73.9 % 04/03/22 21: Lymph % (Auto) 16.6 % 04/03/22 21:25 Williamson % (Auto) 7.2 % 04/03/22 21:25 Eos % (Auto) 1.3 % 04/03/22 21:25 Baso % (Auto) 0.5 % 04/03/22 21: Neut # (Auto) 5.76 10^3/uL (1.8-7.7) 04/03/22 21: Lymph # (Auto) 1.3 10^3/uL (0.8-4.8) 04/03/22 21:25 Williamson # (Auto) 0.6 10^3/uL (0.2-0.9) 04/03/22 21: Eos # (Auto) 0.1 10^3/uL (0.0-0.8) 04/03/22 21: Baso # (Auto) 0.0 10^3/uL (0.0-0.1) 04/03/22 21: Nucleated RBC % (auto) 0 % 04/03/22: Nucleated RBCs # 0.0 /100WBC 04/03/22 21:25 Sodium 132 mmol/L (136-145) L 04/03/22 21:25 Potassium 3.8 mmol/L (3.5-5.1) 04/03/22 21: Chloride 96 mmol/L (98-107) L 04/03/22 21:25 Carbon Dioxide 22 mmol/L (22-29) 04/03/22 21:25 Anion Gap 17.8 (5-19) 04/03/22 21:25 BUN 8 mg/dL (6-20) 04/03/22 21: Creatinine 0.8 mg/dL (0.7-1.2) 04/03/22 21:25 GFR Calculation 105.0 mL/min (90-130) 04/03/22 21:25 Glucose 108 mg/dL (65-115) 04/03/22 21:25 Calculated Osmolality 273 mOsm/kg (285-295) L 04/03/22 21:25 Calcium 8.6 mg/dL (8.5-10.5) 04/03/22 21:25 Total Bilirubin 1.1 mg/dL (0.15-1.2) 04/03/22 21:25 AST 100 U/L (0-40) H 04/03/22 21:25 ALT 128 U/L (0-41) H 04/03/22 21:25 Alkaline Phosphatase 131 U/L (40-130) H 04/03/22 21:25 Total Protein 7.4 g/dL (6.6-8.7) 04/03/22 21:25 Albumin 4.3 g/dL (3.5-5.2) 04/03/22 21:25 Globulin 3.1 g/dL (1.3-4.6) 04/03/22 21:25 Salicylates < 0.3 mg/dL (3-10) L 04/03/22 21:25 Acetaminophen < 5.0 ug/mL (10-30) L 04/03/22 21:25 Ethyl Alcohol < 10 mg/dL (0-10) 04/03/22 21:25 Discharge Plan Discharge Patient Disposition: Admitted As Inpatient Clinical Impression: Suicidal ideation Condition: Stable Coding Level of Care Code ED Educational Consultant for Maria G Fwd Exam Comprehensive
[2022-04-03 21:31] VITALS: BP 150/98
[2022-04-03 21:42] LABS: Basophils % 0.5 %; Eosinophils # 0.1 10^3/uL (0.0-0.8); Eosinophils % 1.3 %; Hematocrit 45.1 % (42.0-52.0); Hemoglobin 15.4 g/dL (11.7-16.6); Lymphocytes # 1.3 10^3/uL (0.8-4.8); Lymphocytes % 16.6 %; Mean Corpuscular HGB Conc 34.1 g/dL (30.0-36.0); Mean Corpuscular Hemoglobin 30.5 pg (28.0-34.0); Mean Corpuscular Volume 89.3 fl (80-94); Mean Platelet Volume 9.2 fL (7.4-10.4); Monocytes # 0.6 10^3/uL (0.2-0.9); Monocytes % 7.2 %; Neutrophils # 5.76 10^3/uL (1.8-7.7); Neutrophils % 73.9 %; Nucleated Red Blood Cells % 0 %; Platelet Count 274 10^3/cmm (130-400); Red Blood Count 5.05 10^6/uL (4.1-5.3); Red Cell Distribution Width 12.5 % (12.1-15.1); White Blood Count 7.8 10^3/uL (4.0-10.0)
[2022-04-03 22:03] LABS: Acetaminophen < 5.0 ug/mL (10-30); Alanine Aminotransferase 128 U/L (0-41); Albumin Level 4.3 g/dL (3.5-5.2); Alcohol Level < 10 mg/dL (0-10); Alkaline Phosphatase 131 U/L (40-130); Anion Gap 17.8 (5-19); Aspartate Amino Transferase 100 U/L (0-40); Blood Urea Nitrogen 8 mg/dL (6-20); Calcium 8.6 mg/dL (8.5-10.5); Carbon Dioxide 22 mmol/L (22-29); Chloride 96 mmol/L (98-107); Creatinine Clr Calc Pharmacy 144.1267; Globulin 3.1 g/dL (1.3-4.6); Glucose 108 mg/dL (65-115); Osmolality Calculated 273 mOsm/kg (285-295); Potassium 3.8 mmol/L (3.5-5.1); Salicylate < 0.3 mg/dL (3-10); Sodium 132 mmol/L (136-145); Total Bilirubin 1.1 mg/dL (0.15-1.2); Total Protein 7.4 g/dL (6.6-8.7)
[2022-04-03] MEDS: LORazepam 1 mg Tablet PO (22:51)
[2022-04-03 22:53] VITALS: BP 166/133; PULSE 106; RESP 18; O2SAT 98
[2022-04-03] MEDS: metoprolol tartrate 50 mg Tablet PO (23:02)
--- NOTE | 2022-04-03 23:05 | PC.NURSE ---
Called [facility] with pt report, Per [facility] charge auditor Mirtha we need to lower pt blood pressure before sending pt to [facility]. Provider ntfd, medication ordered. Pt was also given 2 sandwiches and 2 cokes per request
[2022-04-03 23:06] LABS: Urine Appearance Clear (CLEAR); Urine Color Dark Yellow (Yellow); pH Urine 7 (5-7)
[2022-04-03 23:07] LABS: Amorphous Sediment Urine 1+ /hpf; Bilirubin Urine Neg (Negative); Blood Urine Neg (Negative); Glucose Urine UA Norm (Normal); Ketones Urine 1+ (Negative); Leukocyte Esterase Urine Negative (Negative); Mucus Urine TRACE /hpf; Nitrate Urine Negative (Negative); Protein Urine Neg (Negative); Squamous Epithelial Cell Urine 0-4 /hpf (0-5); Urobilinogen Urine Norm (Negative)
[2022-04-03 23:08] LABS: Add Urine Culture? No
[2022-04-03 23:17] LABS: Amphetamines Screen Urine Negative (Negative); Barbiturates Screen Urine Negative (Negative); Benzodiazepines Screen Urine Negative (Negative); Cocaine Screen Urine Negative (Negative); Opiate Screen Urine Negative (Negative); PCP Screen Urine Negative (Negative); THC Screen Urine Negative (Negative)
[2022-04-03 23:18] VITALS: BP 166/89
[2022-04-03 23:30] VITALS: BP 157/115; PULSE 101; RESP 18; TEMP 36.8; O2SAT 98
[2022-04-04] MEDS: alum-mag-hydroxide-sime 30 mL UDC PO ×4 (01:04→17:08)
[2022-04-04 05:56] VITALS: BP 152/98; PULSE 76; RESP 18; TEMP 36.7; O2SAT 98
[2022-04-04] MEDS: hyDROXYzine 25 mg Capsule 50 MG PO ×2 (07:03→16:25)
[2022-04-04] MEDS: nicotine 4 mg lozenge MUCOUS MEM (09:13)
--- NOTE | 2022-04-04 09:48 | PC.NURSE ---
upon assessment of bilateral lower extremities right 2nd toe open area, on pad using the great and 2nd toe as reference blister. bilateral below the knee have red areas warm to the touch pt denies itching but states pain and numbness.
[2022-04-04] MEDS: folic acid 1 mg Tablet PO (10:18)
[2022-04-04] MEDS: thiamine 100 mg Tablet PO (10:18)
[2022-04-04] MEDS: pantoprazole DR 40 mg Tablet PO (10:18)
[2022-04-04] MEDS: multivitamin therapeutic Tablet 1 TAB PO (10:18)
[2022-04-04] MEDS: LORazepam 2 mg Tablet PO (10:21)
[2022-04-04 14:00] VITALS: BP 136/96; PULSE 82; RESP 18; TEMP 36.8; O2SAT 95
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
[2022-04-04] MEDS: OLANZapine 5 mg ODT PO (18:19)
[2022-04-04 20:24] VITALS: BP 171/97; PULSE 83; RESP 20; TEMP 36.9; O2SAT 96
[2022-04-05] MEDS: trazodone 50 mg Tablet PO ×2 (00:46→19:52)
[2022-04-05] MEDS: hyDROXYzine 25 mg Capsule 50 MG PO ×3 (00:46→15:27)
[2022-04-05 06:00] VITALS: BP 156/112; PULSE 100; RESP 20; TEMP 37; O2SAT 98
[2022-04-05] MEDS: pantoprazole DR 40 mg Tablet PO (08:05)
[2022-04-05] MEDS: folic acid 1 mg Tablet PO (08:05)
[2022-04-05] MEDS: multivitamin therapeutic Tablet 1 TAB PO (08:05)
[2022-04-05] MEDS: thiamine 100 mg Tablet PO (08:05)
--- NOTE | 2022-04-05 08:06 | PC.NURSE ---
PRN VISTARIL 50 MG GIVEN PO PER PT C/O STATED ANXIETY
--- NOTE | 2022-04-05 08:10 | PC.NURSE ---
SHIFT ASSESSMENT DENIES SI/HI/AVH CURRENTLY, PLEASANT WITH STAFF INTERACTION. MED COMPLIANT.
[2022-04-05] MEDS: OLANZapine 5 mg ODT PO (11:08)
--- NOTE | 2022-04-05 11:09 | PC.NURSE ---
PRN ZYPREXA ZYDIS 5 MG GIVEN PO PER PT C/O FEELING ANGRY AND AGITATION, ALTHOUGH NO OUTWARD S/S OF ANGER/AGITATION NOTED CURRENTLY. PT UP PARTICIPATING IN GROUP THERAPY, CAME TO DESK ASKING FOR SNACKS AND CHOCOLATE MILK WHICH WAS PROVIDED WELL
[2022-04-05] MEDS: nicotine 21 mg Patch 1 PATCH TRANSDERMA (12:01)
--- NOTE | 2022-04-05 12:47 | P.NPUPN_ITS ---
Subjective NPU Subjective: Patient presented today reporting that he is not having any problems with the medications. He ultimately reports a plan he believes to return to his mother after discharge. He reports feeling less stressed and feeling more on the right path. Mental Status Exam MSE Comments: This is a well-nourished, well-developed white male in hospital scrubs with improving grooming and appropriate eye contact. He is missing 2 digits, pointer and middle finger on his left hand. No abnormal movements except for mild psychomotor retardation. Cooperative with exam in no acute distress. Speech was more normal rate and volume with difficulty with pronunciation of R's. Mood described as depressed/stressed, affect slightly subdued. Thought process mostly organized. Thought content: Patient denied suicidal or homicidal ideation, there were no delusions reported but there was some odd thinking noted, he denied specific auditory or visual hallucinations. Attention and concentration were intact and memory was mostly intact but none were formally tested. He is alert and oriented x3. Insight and judgment are fair and impulse control is limited. Vitals/I&O/Wt Last Vital Signs Temp 98.6 F 04/05/22 06:00 Pulse 100 04/05/22 06:00 Resp 20 H 04/05/22 06:00 BP 156/112 04/05/22 06:00 Pulse Ox 98 04/05/22 06:00 O2 Del Method 04/05/22 06:00 Data NPU 04/03/22 21:25 04/03/22 21:25 A&P Assessment and plan (1) Suicidal ideation: (2) Intermittent explosive disorder: (3) Nicotine dependence, unspecified, uncomplicated: (4) Alcohol use disorder, severe, dependence: (5) Post-traumatic stress disorder, chronic: (6) Major depressive disorder, recurrent, severe with psychotic features: (7) Impulse control disorder, unspecified: Plan This is a 46-year-old white male with a long history of addiction and mental health treatment known through past hospitalizations with no recent addiction reported who presents with ongoing difficulties with depression and lethality. 1.? Continue current medication.? Started Invega 6 mg p.o. every morning. 2.? Continue every 15 minute checks for safety. 3.? Encourage individual, group and milieu therapies. 4.? Encourage sober living treatment after discharge at the highest level of c are to which he is willing to commit. Involuntary Hold Information 96 Hour Hold: 96 Hour Involuntary Admission: Yes 96 Hour Hold Ending Date: 04/07/22 96 Hour Hold Ending Time: 21:48 Attestations NPU Medical Necessity Statement*: Inpatient hospitalization is medically necessary and the clinically appropriate intervention at this time. We will monitor me dications and make changes as indicated. Likely length of stay 3-5 days. Coding Level of Care Code Acute Code for [facility] Diagnoses Suicidal ideation R45.851 Intermittent explosive disorder F63.81 Nicotine dependence, unspecified, uncomplicated F17.200 Alcohol use disorder, severe, dependence F10.20 Post-traumatic stress disorder, chronic F43.12 Major depressive disorder, recurrent, severe with psychotic features F33.3 Impulse control disorder, unspecified F63.9
[2022-04-05 14:00] VITALS: BP 163/98; PULSE 102; RESP 18; O2SAT 99
[2022-04-05] MEDS: acetaminophen 325 mg Tablet 650 MG PO (15:28)
--- NOTE | 2022-04-05 15:28 | PC.NURSE ---
PRN VISTARIL 50 MG GIVEN PO PER PT C/O FURTHER ANXIETY
[2022-04-05] MEDS: alum-mag-hydroxide-sime 30 mL UDC PO (15:52)
--- NOTE | 2022-04-05 15:52 | PC.NURSE ---
PRN MAALOX 30 ML GIVEN PO PER PT C/O INDIGESTION
[2022-04-05 19:52] VITALS: BP 170/103; PULSE 111; RESP 16; TEMP 36.8; O2SAT 100
[2022-04-06 05:40] VITALS: BP 145/109; PULSE 119; RESP 16; TEMP 36.4; O2SAT 99
[2022-04-06] MEDS: alum-mag-hydroxide-sime 30 mL UDC PO ×4 (05:40→17:08)
[2022-04-06] MEDS: OLANZapine 5 mg ODT PO ×4 (05:40→20:48)
[2022-04-06] MEDS: acetaminophen 325 mg Tablet 650 MG PO ×4 (05:48→20:48)
[2022-04-06] MEDS: folic acid 1 mg Tablet PO (08:54)
[2022-04-06] MEDS: multivitamin therapeutic Tablet 1 TAB PO (08:54)
[2022-04-06] MEDS: thiamine 100 mg Tablet PO (08:54)
[2022-04-06] MEDS: pantoprazole DR 40 mg Tablet PO (08:54)
[2022-04-06] MEDS: nicotine 21 mg Patch 1 PATCH TRANSDERMA (08:55)
[2022-04-06] MEDS: hyDROXYzine 25 mg Capsule 50 MG PO ×2 (12:32→19:04)
--- NOTE | 2022-04-06 13:02 | W.PM.NPUPNS ---
Subjective NPU Subjective: Patient stated today reporting that he is feeling okay. He reports not feeling ready for discharge but we discussed that he had really restarted medications due to his resistance to the medication. We discussed the possibility starting Invega. He was having some anxiety and agreed to start propranolol as well after discussion of risks, benefits and alternatives he understood and agreed proceed as documented in this note. Mental Status Exam MSE Comments: This is a well-nourished, well-developed white male in hospital scrubs with improving grooming and appropriate eye contact. He is missing 2 digits, pointer and middle finger on his left hand. No abnormal movements except for mild psychomotor retardation. Cooperative with exam in no acute distress. Speech was more normal rate and volume with difficulty with pronunciation of R's. Mood described as depressed/stressed, affect slightly subdued. Thought process mostly organized. Thought content: Patient denied suicidal or homicidal ideation, there were no delusions reported but there was some odd thinking noted, he denied specific auditory or visual hallucinations. Attention and concentration were intact and memory was mostly intact but none were formally tested. He is alert and oriented x3. Insight and judgment are fair and impulse control is limited. Vitals/I&O/Wt Last Vital Signs Temp 97.6 F 04/06/22 05:40 Pulse 119 H 04/06/22 05:40 Resp 16 04/06/22 05:40 BP 145/109 04/06/22 05:40 Pulse Ox 99 04/06/22 05:40 O2 Del Method 04/06/22 05:40 Data NPU 04/03/22 21:25 04/03/22 21:25 A&P Assessment and plan (1) Suicidal ideation: (2) Intermittent explosive disorder: (3) Nicotine dependence, unspecified, uncomplicated: (4) Alcohol use disorder, severe, dependence: (5) Post-traumatic stress disorder, chronic: (6) Major depressive disorder, recurrent, severe with psychotic features: (7) Impulse control disorder, unspecified: Plan This is a 46-year-old white male with a long history of addiction and mental health treatment known through past hospitalizations with no recent addiction reported who presents with ongoing difficulties with depression and lethality. 1.? Continue current medication.? Started Invega 6 mg p.o. every morning. 2.? Continue every 15 minute checks for safety. 3.? Encourage individual, group and milieu therapies. 4.? Encourage sober living treatment after discharge at the highest level of care to which he is willing to commit. Involuntary Hold Information 96 Hour Hold: 96 Hour Involuntary Admission: Yes 96 Hour Hold Ending Date: 04/07/22 96 Hour Hold Ending Time: 21:48 Attestations NPU Medical Necessity Statement*: Inpatient hospitalization is medically necessary and the clinically appropriate intervention at this time. We will monitor medications and make changes as indicated. Likely length of stay 3-5 days. Coding Level of Care Code Acute Code for g Fwd Diagnoses Suicidal ideation R45.851 Intermittent explosive disorder F63.81 Nicotine dependence, unspecified, uncomplicated F17.200 Alcohol use disorder, severe, dependence F10.20 Post-traumatic stress disorder, chronic F43.12 Major depressive disorder, recurrent, severe with psychotic features F33.3 Impulse control disorder, unspecified F63.9
[2022-04-06 14:00] VITALS: BP 164/109; PULSE 115; RESP 18; TEMP 36.4; O2SAT 98
[2022-04-06] MEDS: propranolol 20 mg Tablet PO (15:46)
[2022-04-06] MEDS: nicotine 4 mg lozenge MUCOUS MEM (19:04)
[2022-04-06 20:52] VITALS: BP 136/95; PULSE 102; RESP 18; TEMP 36.6; O2SAT 98
[2022-04-06] MEDS: trazodone 50 mg Tablet PO (21:15)
[2022-04-07] MEDS: acetaminophen 325 mg Tablet 650 MG PO ×3 (04:32→21:10)
[2022-04-07] MEDS: alum-mag-hydroxide-sime 30 mL UDC PO ×3 (04:33→16:08)
[2022-04-07] MEDS: hyDROXYzine 25 mg Capsule 50 MG PO ×2 (04:33→16:03)
[2022-04-07] MEDS: folic acid 1 mg Tablet PO (09:00)
[2022-04-07] MEDS: thiamine 100 mg Tablet PO (09:00)
[2022-04-07] MEDS: paliperidone ER 6 mg Tablet PO (09:00)
[2022-04-07] MEDS: multivitamin therapeutic Tablet 1 TAB PO (09:00)
[2022-04-07] MEDS: pantoprazole DR 40 mg Tablet PO (09:00)
[2022-04-07] MEDS: nicotine 21 mg Patch 1 PATCH TRANSDERMA (09:01)
[2022-04-07 13:48] VITALS: BP 121/83; PULSE 138; RESP 18; TEMP 36.6; O2SAT 98
[2022-04-07] MEDS: OLANZapine 5 mg ODT PO ×2 (14:04→21:12)
--- NOTE | 2022-04-07 14:22 | W.PM.NPUPNS ---
Subjective NPU Subjective: Patient presented today reporting that he is feeling okay. We discussed the 96-hour hold possibility. We agreed that he was getting a little better but needed more time and he was willing to stay and so we allowed him to sign in. He denied any side effects from getting the medication restarted and we talked about the possibility of a long-acting injectable but at this time we will continue to proceed with the oral medication. He denied any new challenges and reports a plan to return home with his mother once he is doing better. Mental Status Exam MSE Comments: This is a well-nourished, well-developed white male in hospital scrubs with improving grooming and appropriate eye contact. He is missing 2 digits, pointer and middle finger on his left hand. No abnormal movements except for mild psychomotor retardation. Cooperative with exam in no acute distress. Speech was more normal rate and volume with difficulty with pronunciation of R's. Mood described as a little better, affect slightly subdued. Thought process mostly organized. Thought content: Patient denied suicidal or homicidal ideation, there were no delusions reported but there was some odd thinking noted, he denied specific auditory or visual hallucinations. Attention and concentration were intact and memory was mostly intact but none were formally tested. He is alert and oriented x3. Insight and judgment are fair and impulse control is limited. Vitals/I&O/Wt Last Vital Signs Temp 97.9 F 04/06/22 20:52 Pulse 102 H 04/06/22 20:52 Resp 18 04/06/22 20:52 BP 136/95 04/06/22 20:52 Pulse Ox 98 04/06/22 20:52 O2 Del Method 04/06/22 20:52 Data NPU 04/03/22 21:25 04/03/22 21:25 A&P Assessment and plan (1) Suicidal ideation: (2) Intermittent explosive disorder: (3) Nicotine dependence, unspecified, uncomplicated: (4) Alcohol use disorder, severe, dependence: (5) Post-traumatic stress disorder, chronic: (6) Major depressive disorder, recurrent, severe with psychotic features: (7) Impulse control disorder, unspecified: Plan This is a 46-year-old white male with a long history of addiction and mental health treatment known through past hospitalizations with no recent addiction reported who presents with ongoing difficulties with depression and lethality. 1.? Continue current medication.? Started Invega 6 mg p.o. every morning. 2.? Continue every 15 minute checks for safety. 3.? Encourage individual, group and milieu therapies. 4.? Encourage sober living treatment after discharge at the highest level of care to which he is willing to commit. Involuntary Hold Information 96 Hour Hold: 96 Hour Involuntary Admission: Yes 96 Hour Hold Ending Date: 04/07/22 96 Hour Hold Ending Time: 21:48 Attestations NPU Medical Necessity Statement*: Inpatient hospitalization is medically necessary and the clinically appropriate intervention at this time. We will monitor medications and make changes as indicated. Likely length of stay 3-5 days. Coding Level of Care Code Acute Code for [facility] Fwd Diagnoses Suicidal ideation R45.851 Intermittent explosive disorder F63.81 Nicotine dependence, unspecified, uncomplicated F17.200 Alcohol use disorder, severe, dependence F10.20 Post-traumatic stress disorder, chronic F43.12 Major depressive disorder, recurrent, severe with psychotic features F33.3 Impulse control disorder, unspecified F63.9
[2022-04-07] MEDS: haloperidol 5 mg Tablet PO (16:03)
[2022-04-07 21:05] VITALS: BP 138/88; PULSE 129; RESP 18; TEMP 36.6; O2SAT 98
[2022-04-07] MEDS: trazodone 50 mg Tablet PO (21:10)
[2022-04-08 05:54] VITALS: RESP 18
[2022-04-08] MEDS: hyDROXYzine 25 mg Capsule 50 MG PO ×3 (06:40→20:10)
[2022-04-08] MEDS: acetaminophen 325 mg Tablet 650 MG PO ×2 (06:40→20:11)
[2022-04-08] MEDS: alum-mag-hydroxide-sime 30 mL UDC PO ×2 (06:41→20:10)
[2022-04-08] MEDS: paliperidone ER 6 mg Tablet PO (09:44)
[2022-04-08] MEDS: thiamine 100 mg Tablet PO (09:44)
[2022-04-08] MEDS: folic acid 1 mg Tablet PO (09:44)
[2022-04-08] MEDS: multivitamin therapeutic Tablet 1 TAB PO (09:45)
[2022-04-08] MEDS: pantoprazole DR 40 mg Tablet PO (09:45)
--- NOTE | 2022-04-08 11:06 | P.NPUPN_ITS ---
Subjective NPU Subjective: Patient presented today reporting that he is doing okay. He reports that the medication is working fine but he does not feel he is ready to go. We discussed the fact that the treatment team would be back on Sunday and we will begin working on discharge planning likely for the beginning of the week. He was less isolative and more interactive on the unit. Mental Status Exam MSE Comments: This is a well-nourished, well-developed white male in hospital scrubs with improving grooming and appropriate eye contact. He is missing 2 digits, pointer and middle finger on his left hand. No abnormal movements except for mild psychomotor retardation. Cooperative with exam in no acute distress. Speech was more normal rate and volume with difficulty with pronunciation of R's. Mood described as pretty good, affect slightly subdued. Thought process mostly organized. Thought content: Patient denied suicidal or homicidal ideation, there were no delusions reported but there was some odd thinking noted, he denied specific auditory or visual hallucinations. Attention and concentration were intact and memory was mostly intact but none were formally tested. He is alert and oriented x3. Insight and judgment are fair and impulse control is limited. Vitals/I&O/Wt Last Vital Signs Temp 97.9 F 04/07/22 21:05 Pulse 129 H 04/07/22 21:05 Resp 18 04/08/22 05:54 BP 138/88 04/07/22 21:05 Pulse Ox 98 04/07/22 21:05 O2 Del Method 04/07/22 13:48 04/07/22 04/08/22 04/08/22 22:59 06:59 14:59 Intake Total 900 / 900 Balance 900 / 900 Data NPU 04/03/22 21:25 04/03/22 21:25 A&P Assessment and plan (1) Suicidal ideation: (2) Intermittent explosive disorder: (3) Nicotine dependence, unspecified, uncomplicated: (4) Alcohol use disorder, severe, dependence: (5) Post-traumatic stress disorder, chronic: (6) Major depressive disorder, recurrent, severe with psychotic features: (7) Impulse control disorder, unspecified: Plan This is a 46-year-old white male with a long history of addiction and mental health treatment known through past hospitalizations with no recent addiction reported who presents with ongoing difficulties with depression and lethality. 1.? Continue current medication.? Started Invega 6 mg p.o. every morning. We will attempt to get him on long-acting injectable for adherence. 2.? Continue every 15 minute checks for safety. 3.? Encourage individual, group and milieu therapies. 4.? Encourage sober living treatment after discharge at the highest level of care to which he is willing to commit. Involuntary Hold Information 96 Hour Hold: 96 Hour Involuntary Admission: Yes 96 Hour Hold Ending Date: 04/07/22 96 Hour Hold Ending Time: 21:48 Attestations NPU Medical Necessity Statement*: Inpatient hospitalization is medically necessary and the clinically appropriate intervention at this time. We will monitor medications and make changes as indicated. Likely length of stay 2-4 days. Coding Level of Care Code Acute Code for [facility] Fwd Diagnoses Suicidal ideation R45.851 Intermittent explosive disorder F63.81 Nicotine dependence, unspecified, uncomplicated F17.200 Alcohol use disorder, severe, dependence F10.20 Post-traumatic stress disorder, chronic F43.12 Major depressive disorder, recurrent, severe with psychotic features F33.3 Impulse control disorder, unspecified F63.9
[2022-04-08 14:00] VITALS: BP 131/81; PULSE 101; RESP 17; TEMP 36.7; O2SAT 97
[2022-04-08] MEDS: nicotine 21 mg Patch 1 PATCH TRANSDERMA (14:43)
[2022-04-08 20:11] VITALS: BP 162/99; PULSE 110; RESP 18; O2SAT 98
[2022-04-08] MEDS: trazodone 50 mg Tablet PO ×2 (20:11→23:16)
[2022-04-09] MEDS: alum-mag-hydroxide-sime 30 mL UDC PO (04:17)
[2022-04-09] MEDS: hyDROXYzine 25 mg Capsule 50 MG PO ×3 (04:17→22:36)
[2022-04-09 05:25] VITALS: BP 131/79; PULSE 125; RESP 18; TEMP 36.6; O2SAT 97
[2022-04-09] MEDS: thiamine 100 mg Tablet PO (07:41)
[2022-04-09] MEDS: calcium carbonate 500 mg Chew Tablet 1000 MG PO (07:41)
[2022-04-09] MEDS: pantoprazole DR 40 mg Tablet PO (07:42)
[2022-04-09] MEDS: folic acid 1 mg Tablet PO (07:42)
[2022-04-09] MEDS: multivitamin therapeutic Tablet 1 TAB PO (07:42)
[2022-04-09] MEDS: paliperidone ER 6 mg Tablet PO (07:42)
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
[2022-04-09] MEDS: nicotine 21 mg Patch 1 PATCH TRANSDERMA (10:17)
[2022-04-09] MEDS: acetaminophen 325 mg Tablet 650 MG PO ×2 (10:55→15:13)
[2022-04-09 14:00] VITALS: BP 157/93; PULSE 123; RESP 18; TEMP 36.8; O2SAT 97
[2022-04-09] MEDS: OLANZapine 5 mg ODT PO (16:31)
--- NOTE | 2022-04-09 16:31 | PC.NURSE ---
PRN ZYPREXA ZYDIS 5 MG GIVEN PO PER PT C/O AGITATION. PT UPSET THAT ANOTHER PATIENT TOLD HIM HE WAS BEING TOO LOUD
--- NOTE | 2022-04-09 17:36 | W.PM.NPUPNS ---
Subjective NPU Subjective: Patient presented today reporting that he is doing okay. He continues to report slow improvement. He signed in to the hospital on Sunday and is no longer on a hold. We discussed working with his family and the treatment team tomorrow to establish a clear discharge plan to execute in the next few days. Mental Status Exam MSE Comments: This is a well-nourished, well-developed white male in hospital scrubs with improving grooming and appropriate eye contact. He is missing 2 digits, pointer and middle finger on his left hand. No abnormal movements except for mild psychomotor retardation. Cooperative with exam in no acute distress. Speech was more normal rate and volume with difficulty with pronunciation of R's. Mood described as pretty good, affect slightly subdued. Thought process mostly organized. Thought content: Patient denied suicidal or homicidal ideation, there were no delusions reported but there was some odd thinking noted, he denied specific auditory or visual hallucinations. Attention and concentration were intact and memory was mostly intact but none were formally tested. He is alert and oriented x3. Insight and judgment are fair and impulse control is limited. Vitals/I&O/Wt Last Vital Signs Temp 97.9 F 04/09/22 21:53 Pulse 125 H 04/09/22 21:53 Resp 18 04/09/22 21:53 BP 136/80 04/09/22 21:53 Pulse Ox 96 04/09/22 21:53 O2 Del Method 04/09/22 14:00 Weight last 48 hrs Weight 107.592 kg Weight 107.592 kg Data NPU 04/03/22 21:25 04/03/22 21:25 A&P Assessment and plan (1) Suicidal ideation: (2) Intermittent explosive disorder: (3) Nicotine dependence, unspecified, uncomplicated: (4) Alcohol use disorder, severe, dependence: (5) Post-traumatic stress disorder, chronic: (6) Major depressive disorder, recurrent, severe with psychotic features: (7) Impulse control disorder, unspecified: Plan This is a 46-year-old white male with a long history of addiction and mental health treatment known through past hospitalizations with no recent addiction reported who presents with ongoing difficulties with depression and lethality. 1.? Continue current medication.? Started Invega 6 mg p.o. every morning. We will attempt to get him on long-acting injectable for adherence. 2.? Continue every 15 minute checks for safety. 3.? Encourage individual, group and milieu therapies. 4.? Encourage sober living treatment after discharge at the highest level of care to which he is willing to commit. Involuntary Hold Information 96 Hour Hold: 96 Hour Involuntary Admission: Yes 96 Hour Hold Ending Date: 04/07/22 96 Hour Hold Ending Time: 21:48 Attestations NPU Medical Necessity Statement*: Inpatient hospitalization is medically necessary and the clinically appropriate intervention at this time. We will monitor medications and make changes as indicated. Likely length of stay 1-3 days. Coding Level of Care Code Acute Code for g Fwd Diagnoses Suicidal ideation R45.851 Intermittent explosive disorder F63.81 Nicotine dependence, unspecified, uncomplicated F17.200 Alcohol use disorder, severe, dependence F10.20 Post-traumatic stress disorder, chronic F43.12 Major depressive disorder, recurrent, severe with psychotic features F33.3 Impulse control disorder, unspecified F63.9
[2022-04-09] MEDS: trazodone 50 mg Tablet PO ×2 (20:36→22:40)
[2022-04-09 21:53] VITALS: BP 136/80; PULSE 125; RESP 18; TEMP 36.6; O2SAT 96
[2022-04-10 06:00] VITALS: RESP 18
[2022-04-10] MEDS: hyDROXYzine 25 mg Capsule 50 MG PO ×2 (06:37→20:12)
[2022-04-10] MEDS: acetaminophen 325 mg Tablet 650 MG PO ×3 (07:42→20:12)
[2022-04-10] MEDS: folic acid 1 mg Tablet PO (08:37)
[2022-04-10] MEDS: multivitamin therapeutic Tablet 1 TAB PO (08:37)
[2022-04-10] MEDS: pantoprazole DR 40 mg Tablet PO (08:37)
[2022-04-10] MEDS: thiamine 100 mg Tablet PO (08:37)
[2022-04-10] MEDS: paliperidone ER 6 mg Tablet PO (08:37)
[2022-04-10] MEDS: calcium carbonate 500 mg Chew Tablet 1000 MG PO (08:40)
[2022-04-10] MEDS: nicotine 21 mg Patch 1 PATCH TRANSDERMA (08:43)
[2022-04-10 14:00] VITALS: BP 158/80; PULSE 132; RESP 18; TEMP 36.6; O2SAT 97
--- NOTE | 2022-04-10 17:19 | P.NPUPN_ITS ---
Subjective NPU Subjective: Patient presented today reporting that he is feeling better and feeling optimistic about the prospect of discharge tomorrow. He continued to have very childlike interactions with staff and other patients. However he denied any desire to harm self or anyone else. Continues medication as pres cribed and we discussed the possibility of long-acting injectable. Mental Status Exam MSE Comments: This is a well-nourished, well-developed white male in hospital scrubs with improving grooming and appropriate eye contact. He is missing 2 digits, pointer and middle finger on his left hand. No abnormal movements except for mild psychomotor retardation. Cooperative with exam in no acute distress. Speech was more normal rate and volume with difficulty with pronunciation of R's. Mood described as pretty good, affect slightly subdued, but brighter. Thought process mostly organized. Thought content: Patient denied suicidal or homicidal ideation, there were no delusions reported but there was some odd thinking noted, he denied specific auditory or visual hallucinations. Attention and concentration were intact and memory was mostly intact but none were formally tested. He is alert and oriented x3. Insight and judgment are fair and impulse control is limited. Vitals/I&O/Wt Last Vital Signs Temp 98.1 F 04/10/22 20:13 Pulse 120 H 04/10/22 20:13 Resp 17 04/10/22 20:13 BP 126/77 04/10/22 20:13 Pulse Ox 95 04/10/22 20:13 O2 Del Method 04/09/22 14:00 Weight last 48 hrs Weight 107.592 kg Data NPU 04/03/22 21:25 04/03/22 21:25 A&P Assessment and plan (1) Suicidal ideation: (2) Intermittent explosive disorder: (3) Nicotine dependence, unspecified, uncomplicated: (4) Alcohol use disorder, severe, dependence: (5) Post-traumatic stress disorder, chronic: (6) Major depressive disorder, recurrent, severe with psychotic features: (7) Impulse control disorder, unspecified: Plan This is a 46-year-old white male with a long history of addiction and mental health treatment known through past hospitalizations with no recent addiction reported who presents with ongoing difficulties with depression and lethality. 1.? Continue current medication.? Started Invega 6 mg p.o. every morning. We will attempt to get him on long-acting injectable for adherence. 2.? Continue every 15 minute checks for safety. 3.? Encourage individual, group and milieu therapies. 4.? Encourage sober living treatment after discharge at the highest level of care to which he is willing to commit. Involuntary Hold Information 96 Hour Hold: 96 Hour Involuntary Admission: Yes 96 Hour Hold Ending Date: 04/07/22 96 Hour Hold Ending Time: 21:48 Attestations NPU Medical Necessity Statement*: Inpatient hospitalization is medically necessary and the clinically appropriate intervention at this time. We will monitor medications and make changes as indicated. Likely length of stay 1-3 days. Plan for discharge morning. Coding Level of Care Code Acute Code for g Fwd Diagnoses Suicidal ideation R45.851 Intermittent explosive disorder F63.81 Nicotine dependence, unspecified, uncomplicated F17.200 Alcohol use disorder, severe, dependence F10.20 Post-traumatic stress disorder, chronic F43.12 Major depressive disorder, recurrent, severe with psychotic features F33.3 Impulse control disorder, unspecified F63.9
[2022-04-10] MEDS: trazodone 50 mg Tablet PO ×2 (20:12→23:21)
[2022-04-10 20:13] VITALS: BP 126/77; PULSE 120; RESP 17; TEMP 36.7; O2SAT 95
[2022-04-11] MEDS: acetaminophen 325 mg Tablet 650 MG PO (02:33)
[2022-04-11] MEDS: alum-mag-hydroxide-sime 30 mL UDC PO (02:33)
[2022-04-11 06:00] VITALS: BP 145/82; PULSE 125; RESP 18; TEMP 36.6; O2SAT 95
[2022-04-11] MEDS: thiamine 100 mg Tablet PO (08:45)
[2022-04-11] MEDS: folic acid 1 mg Tablet PO (08:45)
[2022-04-11] MEDS: multivitamin therapeutic Tablet 1 TAB PO (08:45)
[2022-04-11] MEDS: paliperidone ER 6 mg Tablet PO (08:45)
[2022-04-11] MEDS: pantoprazole DR 40 mg Tablet PO (08:45)
--- NOTE | 2022-04-11 09:39 | DCPLANNER ---
Cm printed and gave pt a copy of his IMM and explained rights. Copy was placed in his file.
[2022-04-11] MEDS: nicotine 21 mg Patch 1 PATCH TRANSDERMA (09:45)
[2022-04-11 11:58] VITALS: BP 145/82; PULSE 125; RESP 18; TEMP 36.6; O2SAT 95
[2022-04-11] MEDS: paliperidone palmitate 234 mg Syringe IM (12:32)
--- NOTE | 2022-04-11 12:33 | PC.NURSE ---
ARI SUSTENNA 234 MG GIVEN IM IN RIGHT DELTOID PER PHYSICIAN ORDER. TOLERATED INJECTION WELL, WILL CONT TO MONITOR INJECTION SITE FOR ANY REDNESS, SWELLING OR IRRITATION LOT [id number] EXP 10/2023
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
[2022-04-11 14:00] VITALS: BP 149/88; PULSE 118; RESP 18; TEMP 37.1; O2SAT 97
== END 2022-04-11 14:25 | disposition home or self-care (01) | DRG 885 ==
LOC: ER 21:44 → NP 22:21
PROVIDERS: Admitting Provider Psychiatry & Neurology Psychiatry; Emergency Provider Emergency Medicine; Visit Provider Psychiatry & Neurology Psychiatry
DX: F33.3 Major depressive disorder, recurrent, severe with psychotic symptoms (principal); R45.851 Suicidal ideations; F63.81 Intermittent explosive disorder; F43.12 Post-traumatic stress disorder, chronic; F63.9 Impulse disorder, unspecified; F10.20 Alcohol dependence, uncomplicated; Y90.0 Blood alcohol level of less than 20 mg/100 ml; F17.210 Nicotine dependence, cigarettes, uncomplicated; Z62.810 Personal history of physical and sexual abuse in childhood; Z62.811 Personal history of psychological abuse in childhood; Z91.51 Personal history of suicidal behavior
CPT/HCPCS: 80053; 80306; 80307; 81001; 85025; 96372; 97150; 97165; 99238; 99285

== ENCOUNTER 2023-06-14 08:26 | Inpatient (IN) | payer MEDICARE, MEDICAID, SELFPAY ==
[2023-06-14 08:28] VITALS: BP 114/82; PULSE 130; TEMP 37.7; O2SAT 92
[2023-06-14 09:06] LABS: Basophils # 0.1 10^3/uL (0.0-0.1); Basophils % 0.9 %; Eosinophils # 0.2 10^3/uL (0.0-0.8); Eosinophils % 2.2 %; Hematocrit 48.2 % (37-53); Lymphocytes # 2.4 10^3/uL (0.8-4.8); Lymphocytes % 32.5 %; Mean Corpuscular HGB Conc 34.2 g/dL (30-55); Mean Corpuscular Hemoglobin 32.4 pg (27-33); Mean Corpuscular Volume 94.7 fl (82-101); Mean Platelet Volume 8.9 fL (7.4-10.4); Monocytes # 0.6 10^3/uL (0.2-0.9); Monocytes % 8.1 %; Neutrophils # 4.08 10^3/uL (1.8-7.7); Neutrophils % 55.4 %; Nucleated Red Blood Cells % 0 %; Platelet Count 294 10^3/cmm (157-399); Red Blood Count 5.09 10^6/uL (3.85-5.65); Red Cell Distribution Width 12.3 % (12.1-15.1); White Blood Count 7.38 10^3/uL (3.29-11.43)
[2023-06-14 09:18] LABS: Ammonia 33 umol/L (16-60)
[2023-06-14 09:19] LABS: Alanine Aminotransferase 237 U/L (0-41); Albumin Level 4.5 g/dL (3.5-5.2); Alcohol Level 166 mg/dL (0-10); Alkaline Phosphatase 74 U/L (40-130); Anion Gap 19.4 (5-19); Aspartate Amino Transferase 147 U/L (0-40); Blood Urea Nitrogen 13 mg/dL (6-20); Calcium 8.7 mg/dL (8.5-10.5); Carbon Dioxide 20 mmol/L (22-29); Chloride 105 mmol/L (98-107); Globulin 3.3 g/dL (1.3-4.6); Glomerular Filtration Rate 91.3 mL/min (90-130); Glucose 141 mg/dL (65-115); Osmolality Calculated 292 mOsm/kg (285-295); Potassium 4.4 mmol/L (3.5-5.1); Sodium 140 mmol/L (136-145); Total Bilirubin 0.5 mg/dL (0.15-1.2); Total Protein 7.8 g/dL (6.6-8.7)
[2023-06-14] MEDS: lidocaine 2% viscous 15 ML, aluminum-mag hydrox-simethicon 30 ML, sucralfate oral liq 1 GM PO (09:26)
--- NOTE | 2023-06-14 09:56 | W.ED.PSYCHS ---
HPI - Psych General: Chief Complaint: Psychiatric Symptoms Stated Complaint: 96 Hr Hold Time Seen by Provider: 06/14/23 08:29 Source: patient Mode of arrival: ambulatory History of Present Illness: 47-year-old male presents emergency room in custody of [facility] department. He denies any cough he is obviously intoxicated admits to having been drinking he was found wandering on the road stepping in front of traffic stating he was going to try to kill himself. Patient has a history of alcohol abuse and drug abuse in the past he has previously been admitted for mental health issues although he tells me it has been sometime no recent illness. MD complaint: suicidal ideation History of same: Yes Relieving factors: none Exacerbating factors: alcohol Context: recent alcohol abuse Associated symptoms: Reports depression and suicidal ideation; Deny auditory hallucinations, visual hallucinations, delusions, homicidal ideation, racing thoughts or other Treatments prior to arrival: none If self harm: admits thoughts of self harm, has plan and has acted on plan Review of Systems Const: Denies: fever(s) or chills Card: Denies: chest pain Resp: Denies: dyspnea GI: Denies: abdominal pain : Denies: dysuria, urinary frequency or urinary urgency Musc: Denies: neck pain or back pain Skin/Breast: Denies: rash Psych: Reports: depression and suicidal ideation; Denies: visual hallucinations, auditory hallucinations or homicidal ideation [facility] ED PFSH: Social History Smoking and tobacco/nicotine status: current every day tobacco/nicotine user cigarettes Packs smoked per day: 1 Years cigarettes smoked: 22 Quit status (tobacco/nicotine): has tried quititng Number of times tried to quit tobacco: 2 Second hand smoke exposure: No Physical Exam Const: COMMON NORMALS: no acute distress GENERAL APPEARANCE: cooperative and comfortable ORIENTATION/CONSCIOUSNESS: Yes awake, Yes oriented to person, Yes oriented to place and Yes oriented to time HENMT: COMMON NORMALS: normocephalic, atraumatic and hearing grossly normal bilaterally HEAD & SCALP: normocephalic and atraumatic Resp: COMMON NORMALS: normal respiratory effort, No retractions, No use of accessory muscles and clear to auscultation bilaterally AUSCULTATION: clear to auscultation bilaterally Cardio: COMMON NORMALS: regular rate, regular rhythm and No murmurs present (Cardio) RATE: regular rate RHYTHM: regular rhythm GI: COMMON NORMALS: Soft to palpation and No hepatosplenomegaly present AUSCULTATION: Yes normoactive bowel sounds PALPATION: Yes Soft to palpation, No Tenderness to palpation present (GI), No Guarding due to palpation present (GI) and Yes No hepatosplenomegaly present Extremity: COMMON NORMALS: normal to inspection, capillary refill normal, no clubbing, cyanosis or edema, no calf tenderness and no pedal edema Neuro: SENSORIUM/ORIENTATION: Yes oriented to person, Yes oriented to place and Yes oriented to time Psych: THOUGHT CONTENT: No delusions Skin: COMMON NORMALS: no rashes or lesions noted GENERAL SKIN EXAM: no rashes or lesions noted Course Vital Signs: Vital signs: Vital Signs Temperature 99.8 F H 06/14/23 08:28 Pulse Rate 130 H 06/14/23 08:28 Blood Pressure 114/82 06/14/23 08:28 Pulse Oximetry 92 06/14/23 08:28 Oxygen Delivery Me thod Room Air 06/14/23 08:28 MDM - Psych Medical Decision Making Acutely intoxicated with suicidal ideations and depression as detailed is to complete his plan. Discussed with on-call psychiatry will admit. 96-hour hold paperwork completed there is a affidavit from the deputy. Patient also stated to me he was intentionally trying to kill himself. Medical Records I reviewed the patient's medical records. Lab Data I reviewed the patient's lab results. 06/14/23 08:54 06/14/23 08:54 Laboratory Results WBC 7.38 10^3/uL (3.29-11.43) 06/14/23 08:54 RBC 5.09 10^6/uL (3.85-5.65) 06/14/23 08:54 Hgb 16.50 g/dL (11.27-16.99) 06/14/23 08:54 Hct 48.2 % (37-53) 06/14/23 08:54 MCV 94.7 fl (82-101) 06/14/23 08:54 MCH 32.4 pg (27-33) 06/14/23 08:54 MCHC 34.2 g/dL (30-55) 06/14/23 08:54 RDW 12.3 % (12.1-15.1) 06/14/23 08:54 Plt Count 294 10^3/cmm (157-399) 06/14/23 08:54 MPV 8.9 fL (7.4-10.4) 06/14/23 08:54 Neut % (Auto) 55.4 % 06/14/23 08:54 Lymph % (Auto) 32.5 % 06/14/23 08:54 Hays % (Auto) 8.1 % 06/14/23 08:54 Eos % (Auto) 2.2 % 06/14/23 08:54 Baso % (Auto) 0.9 % 06/14/23 08:54 Neut # (Auto) 4.08 10^3/uL (1.8-7.7) 06/14/23 08:54 Lymph # (Auto) 2.4 10^3/uL (0.8-4.8) 06/14/23 08:54 Hays # (Auto) 0.6 10^3/uL (0.2-0.9) 06/14/23 08:54 Eos # (Auto) 0.2 10^3/uL (0.0-0.8) 06/14/23 08:54 Baso # (Auto) 0.1 10^3/uL (0.0-0.1) 06/14/23 08:54 Nucleated RBC % (auto) 0 % 06/14/23 08:54 Nucleated RBCs # 0.0 /100WBC 06/14/23 08:54 Sodium 140 mmol/L (136-145) 06/14/23 08:54 Potassium 4.4 mmol/L (3.5-5.1) 06/14/23 08:54 Chloride 105 mmol/L (98-107) 06/14/23 08:54 Carbon Dioxide 20 mmol/L (22-29) L 06/14/23 08:54 Anion Gap 19.4 (5-19) H 06/14/23 08:54 BUN 13 mg/dL (6-20) 06/14/23 08:54 Creatinine 0.9 mg/dL (0.7-1.2) 06/14/23 08:54 GFR Calculation 91.3 mL/min (90-130) 06/14/23 08:54 Glucose 141 mg/dL (65-115) H 06/14/23 08:54 Calculated Osmolality 292 mOsm/kg (285-295) 06/14/23 08:54 Calcium 8.7 mg/dL (8.5-10.5) 06/14/23 08:54 Total Bilirubin 0.5 mg/dL (0.15-1.2) 06/14/23 08:54 AST 147 U/L (0-40) H 06/14/23 08:54 ALT 237 U/L (0-41) H 06/14/23 08:54 Alkaline Phosphatase 74 U/L (40-130) 06/14/23 08:54 Ammonia 33 umol/L (16-60) 06/14/23 08:54 Total Protein 7.8 g/dL (6.6-8.7) 06/14/23 08:54 Albumin 4.5 g/dL (3.5-5.2) 06/14/23 08:54 Globulin 3.3 g/dL (1.3-4.6) 06/14/23 08:54 Ethyl Alcohol 166 mg/dL (0-10) H 06/14/23 08:54 No radiology studies performed this visit Discharge Plan Discharge Patient Disposition: Admitted As Inpatient Clinical Impression: Suicidal ideation, Alcohol use disorder, severe, dependence Condition: Stable Prescriptions: No Action No Known Home Medications Patient Instructions: Opioid Safety, Pain Management Coding Level of Care Code ED Biomedical Engineering Technologist for Maria G Mccauley
[2023-06-14] MEDS: LORazepam 2 mg Tablet PO (11:47)
[2023-06-14 12:00] VITALS: BP 136/81; PULSE 86; RESP 20; TEMP 36.7; O2SAT 98
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
--- NOTE | 2023-06-14 12:49 | PC.NURSE ---
96 hr rights reviewed with patient @1015 with assistance of [facility] security threat analyst Tremaine. All education reviewed with patient. No verbalized concerns or needs at this time Patient copy left @bedside with patient.
[2023-06-14] MEDS: calcium carbonate 500 mg Chew Tablet 1000 MG PO ×2 (14:51→20:30)
--- NOTE | 2023-06-14 14:51 | PC.OT ---
OT EVALUATION ATTEMPTED. PER NURSING, PATIENT HAS RECEIVED ATIVAN AND IS RESTING IN BED.
[2023-06-14 15:03] LABS: Add Urine Microscopic? NO; Charge for UA Resulting for Rev
[2023-06-14 15:09] LABS: Bilirubin Urine Neg (Negative); Blood Urine Neg (Negative); Glucose Urine UA Norm (Normal); Ketones Urine Negative (Negative); Leukocyte Esterase Urine Negative (Negative); Nitrate Urine Negative (Negative); Protein Urine Neg (Negative); Specific Gravity, Urine 1.025 (1.005-1.030); Urine Appearance Clear (CLEAR); Urine Color Yellow (Yellow); Urobilinogen Urine Neg (Negative); pH Urine 5 (5-7)
[2023-06-14 15:22] LABS: Amphetamines Screen Urine Negative (Negative); Barbiturates Screen Urine Negative (Negative); Benzodiazepines Screen Urine Positive (Negative); Cocaine Screen Urine Negative (Negative); Opiate Screen Urine Negative (Negative); PCP Screen Urine Negative (Negative); THC Screen Urine Negative (Negative)
[2023-06-14 16:00] VITALS: BP 129/89; PULSE 113; RESP 20; TEMP 36.7; O2SAT 98
--- NOTE | 2023-06-14 18:27 | PC.NURSE ---
ROOM SEARCHED BY STAFF NO CONTRABAND FOUND.
[2023-06-14 19:36] VITALS: BP 156/85; PULSE 118; RESP 18; TEMP 36.7; O2SAT 96
[2023-06-14] MEDS: trazodone 50 mg Tablet PO (21:20)
[2023-06-14 23:54] VITALS: BP 162/81; PULSE 91; RESP 17; O2SAT 95
[2023-06-14] MEDS: OLANZapine 5 mg ODT PO (23:56)
--- NOTE | 2023-06-14 23:56 | PC.NURSE ---
Patient stated he felt anxious and angry. Given 5 mg zyprxa zydis.
[2023-06-15 04:00] VITALS: BP 169/112; PULSE 109; RESP 18; TEMP 36.3; O2SAT 98
[2023-06-15] MEDS: hyDROXYzine 25 mg Capsule 50 MG PO (08:11)
[2023-06-15] MEDS: neomycin-poly-bacitracin oint 28 gm 1 APPLIC TOPICAL ×3 (08:12→20:45)
[2023-06-15] MEDS: folic acid 1 mg Tablet PO (08:12)
[2023-06-15] MEDS: multivitamin therapeutic Tablet 1 TAB PO (08:12)
[2023-06-15] MEDS: thiamine 100 mg Tablet PO (08:12)
--- NOTE | 2023-06-15 08:26 | PC.NURSE ---
Patient calm during assessment. Patient reports anxiety and depression, with unknown cause. Patient denies SI, HI, AVH.
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
[2023-06-15] MEDS: OLANZapine 5 mg ODT PO (09:36)
--- NOTE | 2023-06-15 09:36 | PC.NURSE ---
Dr.. Sapp verbally ordered this nurse to give patient a 5mg Zyprexa ODT.
[2023-06-15] MEDS: calcium carbonate 500 mg Chew Tablet 1000 MG PO ×2 (11:56→20:38)
[2023-06-15] MEDS: propranolol 20 mg Tablet PO ×2 (11:56→17:15)
[2023-06-15] MEDS: ARIPiprazole 10 mg Tablet 5 MG PO (11:57)
[2023-06-15 12:00] VITALS: BP 158/98; PULSE 92; RESP 20; TEMP 36.6; O2SAT 98
[2023-06-15 16:00] VITALS: BP 158/98; PULSE 112; RESP 16; TEMP 36.7; O2SAT 98
[2023-06-15 20:00] VITALS: BP 131/85; PULSE 96; RESP 17; TEMP 36.4; O2SAT 94
[2023-06-15] MEDS: alum-mag-hydroxide-sime 30 mL UDC PO (23:26)
[2023-06-15 23:42] VITALS: BP 133/84; PULSE 104; RESP 17; TEMP 36.8; O2SAT 98
[2023-06-16] MEDS: calcium carbonate 500 mg Chew Tablet 1000 MG PO ×3 (01:57→21:55)
[2023-06-16 03:51] VITALS: BP 158/90; PULSE 97; RESP 17; TEMP 37.1; O2SAT 98
[2023-06-16] MEDS: alum-mag-hydroxide-sime 30 mL UDC PO ×3 (06:23→19:16)
[2023-06-16] MEDS: ARIPiprazole 10 mg Tablet 5 MG PO ×2 (07:29→16:00)
[2023-06-16] MEDS: folic acid 1 mg Tablet PO (07:29)
[2023-06-16] MEDS: hyDROXYzine 25 mg Capsule 50 MG PO (07:29)
[2023-06-16] MEDS: thiamine 100 mg Tablet PO (07:29)
[2023-06-16] MEDS: propranolol 20 mg Tablet PO ×2 (07:29→17:41)
[2023-06-16] MEDS: multivitamin therapeutic Tablet 1 TAB PO (07:29)
[2023-06-16 07:33] VITALS: BP 133/85; PULSE 101; RESP 18; O2SAT 96
[2023-06-16 12:00] VITALS: BP 123/84; PULSE 104; RESP 16; O2SAT 97
--- NOTE | 2023-06-16 15:06 | P.NPUPN_ITS ---
Subjective NPU 2 Subjective: 47-year-old male admitted with intermitt ent explosive disorder, suicidal ideation in the context of significant alcohol abuse. Patient continued to require Ativan for alcohol related withdrawal symptoms. He had stated that he had been feeling antsy . He had not been aggressive here on the unit but stated that he was having periods of intense irritability. He reported no side effects from the Abilify. He denied any hallucinations. He had reported feeling frustrated easily and stated that he needed help with managing his anger. He had been noncompliant with his previous medications on an outpatient basis and continued to endorse having a high tolerance for alcohol with no recent treatment for alcohol dependence either inpatient or outpatient. Mental Status Exam 2 MSE Comments: This is a well-nourished, well-developed white male in hospital scrubs with poor grooming and appropriate eye contact. He had a rosalina complexion. He is missing 2 digits, pointer and middle finger on his left hand. No abnormal involuntary motor movements except for increased psychomotor agitation. He was cooperative with exam in moderate distress. Speech was more normal in rate and normal volume with difficulty with pronunciation of R's. Mood described as antsy. Affect remained irritable. Thought process was linear and logical. Thought content: Patient denied suicidal or homicidal ideation. there were no delusions reported but there was some odd thinking noted, He denied specific auditory or visual hallucinations. Attention and concentration were poor and memory was grossly intact but none were formally tested. He is alert and oriented x3. Insight was poor and judgment is impaired and impulse control is limited. There was evidence of poor frustration tolerance. Intelligence appeared commensurate with mild cognitive impairment. Vitals/I&O/Wt Last Vital Signs Temp 98.7 F 06/16/23 03:51 Pulse 104 H 06/16/23 12:00 Resp 16 06/16/23 12:00 BP 123/84 06/16/23 12:00 Pulse Ox 97 06/16/23 12:00 O2 Del Method Room Air 06/16/23 12:00 Weight last 48 hrs Weight 104.326 kg Data NPU 06/14/23 08:54 06/14/23 08:54 A&P Assessment and plan (1) Intermittent explosive disorder: (2) Suicidal ideation: (3) Alcohol use disorder, severe, dependence: (4) Nicotine dependence, unspecified, uncomplicated: (5) Post-traumatic stress disorder, chronic: (6) Major depressive disorder, recurrent, severe with psychotic features: (7) Impulse control disorder, unspecified: Plan This is a 47-year-old white male with a long history of addiction and mental health treatment known through past hospitalizations with continued agitation and anger issues along with signficant alcohol abuse. Patient requesting change in medication regimen 1.? Increase abilify to 10mg daily. Propranolol 20mg bid. 2.? Continue every 15 minute checks for safety. 3.? Encourage individual, group and milieu therapies. 4.? Encourage sober living treatment after discharge at the highest level of care to which he is willing to commit. 5. [facility] protocol for alcohol withdrawal. Involuntary Hold Information 2 96 Hour Hold: 96 Hour Involuntary Admission: Yes 96 Hour Hold Ending Date: 06/20/23 96 Hour Hold Ending Time: 10:00 Attestations NPU 2 Medical Necessity Statement*: Inpatient hospitalization is medically necessary and deemed to ?be ?the clinically appropriate intervention ?at this time.? We will monitor/initiate medications and make changes as indicated. The patient?s likely length of stay 4-6 days. Coding Level of Care Code Acute Code for [facility] Diagnoses Intermittent explosive disorder F63.81 Suicidal ideation R45.851 Alcohol use disorder, severe, dependence F10.20 Nicotine dependence, unspecified, uncomplicated F17.200 Post-traumatic stress disorder, chronic F43.12 Major depressive disorder, recurrent, severe with psychotic features F33.3 Impulse control disorder, unspecified F63.9
[2023-06-16 16:00] VITALS: BP 135/82; PULSE 98; RESP 16; O2SAT 97
[2023-06-16] MEDS: OLANZapine 5 mg ODT PO ×2 (16:06→20:06)
[2023-06-16] MEDS: neomycin-poly-bacitracin oint 28 gm 1 APPLIC TOPICAL (17:55)
--- NOTE | 2023-06-16 18:35 | PC.NURSE ---
ROOM SEARCH PREFORMED BY STAFF NO CONTRABAND FOUND.
[2023-06-16 20:00] VITALS: BP 143/76; PULSE 112; RESP 18; TEMP 36.6; O2SAT 94
[2023-06-16] MEDS: trazodone 50 mg Tablet PO (20:32)
[2023-06-17] VITALS: BP 128/82; PULSE 114; RESP 16; TEMP 36.5; O2SAT 97
[2023-06-17] MEDS: alum-mag-hydroxide-sime 30 mL UDC PO ×4 (00:07→16:33)
[2023-06-17] MEDS: trazodone 50 mg Tablet PO ×2 (00:07→23:44)
[2023-06-17 04:00] VITALS: BP 105/70; PULSE 121; RESP 16; TEMP 36.6; O2SAT 96
[2023-06-17 06:00] VITALS: BMI 33.7
[2023-06-17 07:20] VITALS: BP 125/80; PULSE 121; RESP 22; TEMP 36.7; O2SAT 97
[2023-06-17] MEDS: ARIPiprazole 10 mg Tablet PO (07:24)
[2023-06-17] MEDS: thiamine 100 mg Tablet PO (07:24)
[2023-06-17] MEDS: haloperidol 5 mg Tablet PO ×3 (07:24→21:37)
[2023-06-17] MEDS: folic acid 1 mg Tablet PO (07:24)
[2023-06-17] MEDS: propranolol 20 mg Tablet PO ×2 (07:24→17:39)
[2023-06-17] MEDS: multivitamin therapeutic Tablet 1 TAB PO (07:24)
[2023-06-17] MEDS: acetaminophen 325 mg Tablet 650 MG PO (11:54)
[2023-06-17 12:00] VITALS: BP 149/79; PULSE 107; RESP 18; TEMP 36.7; O2SAT 96
[2023-06-17] MEDS: hyDROXYzine 25 mg Capsule 50 MG PO ×2 (12:28→21:37)
--- NOTE | 2023-06-17 15:00 | W.PM.NPUPNS ---
Subjective NPU Subjective: 47-year-old male admitted with intermittent explosive disorder, suicidal ideation in the context of significant alcohol abuse. The patient had continued report having periods of agitation. He had requested something to manage his problem with explosive outburst. He was a bit more social but continue to show evidence of poor frustration tolerance. He had continued to endorse alcohol use but failed to connect his alcohol use with behavior issues. Patient reported that he felt depressed frequently but described having problems with managing his anger. Mental Status Exam MSE Comments: This is a well-nourished, well-developed white male in hospital scrubs with poor grooming and appropriate eye contact. He had a rosalina complexion. He is missing 2 digits, pointer and middle finger on his left hand. No abnormal involuntary motor movements except for increased psychomotor agitation. He was cooperative with exam in moderate distress. Speech was more normal in rate and normal volume with difficulty with pronunciation of R's. Mood described as getting anxious Affect appeared agitated. Thought process was linear and but superficial. Thought content: Patient denied suicidal or homicidal ideation. there were no delusions reported but there was some odd thinking noted, He denied specific auditory or visual hallucinations. Attention and concentration were poor and memory was grossly intact but none were formally tested. He is alert and oriented x3. Insight was poor and judgment is impaired and impulse control is limited. There was evidence of poor frustration tolerance. Intelligence appeared commensurate with mild cognitive impairment. Vitals/I&O/Wt Last Vital Signs Temp 98.1 F 06/17/23 12:00 Pulse 107 H 06/17/23 12:00 Resp 18 06/17/23 12:00 BP 149/79 06/17/23 12:00 Pulse Ox 96 06/17/23 12:00 O2 Del Method Room Air 06/17/23 07:20 Weight last 48 hrs Weight 112.945 kg Data NPU 06/14/23 08:54 06/14/23 08:54 A&P Assessment and plan (1) Intermittent explosive disorder: (2) Suicidal ideation: (3) Alcohol use disorder, severe, dependence: (4) Nicotine dependence, unspecified, uncomplicated: (5) Post-traumatic stress disorder, chronic: (6) Major depressive disorder, recurrent, severe with psychotic features: (7) Impulse control disorder, unspecified: Plan This is a 47-year-old white male with a long history of addiction and mental health treatment known through past hospitalizations with continued agitation and anger issues along with signficant alcohol abuse. Patient requesting change in medication regimen 1.? Continue abilify at 10mg daily. Propranolol 20mg bid. Use Haldol prn for agitation/anxiety reported. 2.? Continue every 15 minute checks for safety. 3.? Encourage individual, group and milieu therapies. 4.? Encourage sober living treatment after discharge at the highest level of care to which he is willing to commit. 5. [facility] protocol for alcohol withdrawal. Involuntary Hold Information 96 Hour Hold: 96 Hour Involuntary Admission: Yes 96 Hour Hold Ending Date: 06/20/23 96 Hour Hold Ending Time: 10:00 Attestations NPU Medical Necessity Statement*: Inpatient hospitalization is medically necessary and deemed to ?be ?the clinically appropriate intervention ?at this time.? We will monitor/initiate medications and make changes as indicated. The patient?s likely length of stay 4-6 days. Coding Level of Care Code Acute Code for [facility] Diagnoses Intermittent explosive disorder F63.81 Suicidal ideation R45.851 Alcohol use disorder, severe, dependence F10.20 Nicotine dependence, unspecified, uncomplicated F17.200 Post-traumatic stress disorder, chronic F43.12 Major depressive disorder, recurrent, severe with psychotic features F33.3 Impulse control disorder, unspecified F63.9
[2023-06-17 16:00] VITALS: BP 120/71; PULSE 112; RESP 18; TEMP 36.6; O2SAT 95
[2023-06-17] MEDS: neomycin-poly-bacitracin oint 28 gm 1 APPLIC TOPICAL (17:42)
[2023-06-17 19:20] VITALS: BP 137/88; PULSE 101; RESP 20; TEMP 36.6; O2SAT 96
[2023-06-17] MEDS: OLANZapine 5 mg ODT PO (23:43)
[2023-06-18] VITALS (7 sets, daily range): BP systolic 121–135; BP diastolic 79–92; PULSE 91–109; RESP 16–22; TEMP 36.4–36.8; O2SAT 95–99
[2023-06-18] MEDS: alum-mag-hydroxide-sime 30 mL UDC PO ×3 (06:51→20:25)
[2023-06-18] MEDS: ARIPiprazole 10 mg Tablet PO (07:52)
[2023-06-18] MEDS: folic acid 1 mg Tablet PO (07:52)
[2023-06-18] MEDS: propranolol 20 mg Tablet PO ×2 (07:52→17:36)
[2023-06-18] MEDS: multivitamin therapeutic Tablet 1 TAB PO (07:53)
[2023-06-18] MEDS: neomycin-poly-bacitracin oint 28 gm 1 APPLIC TOPICAL ×2 (07:53→17:48)
[2023-06-18] MEDS: hyDROXYzine 25 mg Capsule 50 MG PO ×2 (07:53→20:57)
[2023-06-18] MEDS: thiamine 100 mg Tablet PO (07:53)
[2023-06-18] MEDS: haloperidol 5 mg Tablet PO (07:54)
[2023-06-18] MEDS: OLANZapine 5 mg ODT PO (09:59)
[2023-06-18] MEDS: calcium carbonate 500 mg Chew Tablet 1000 MG PO ×2 (10:06→22:05)
--- NOTE | 2023-06-18 11:03 | PC.NURSE ---
room search preformed no contra band found. beds stripped and cleaned.
[2023-06-18] MEDS: pantoprazole DR 40 mg Tablet PO (12:51)
[2023-06-18] MEDS: naltrexone hcl 50 mg Tablet PO (14:54)
--- NOTE | 2023-06-18 15:57 | P.NPUPN_ITS ---
Subjective NPU 2 Subjective: 47-year-old male admitted with intermitt ent explosive disorder, suicidal ideation in the context of significant alcohol abuse. Patient has continued to require as needed medications for agitation including Zyprexa and Haldol. He had reported having difficulties with managing his anger. He had reported struggles with following directions. He reports that he was easily angered and had not been able to control his cravings for alcohol. He had endorsed a past history of significant alcohol withdrawal symptoms. Patient was informed that inpatient treatment for alcohol use was possible and about 28 days at the [facility] [place]. He reports that he is uncertain as to where he would live when he left here at this time. He had expressed interest in helping with managing his cravings for alcohol with medications and stated no previous history of intramuscular Vivitrol use. Patient had no acts of aggression noted but did report that he continued to get angry here. Mental Status Exam 2 MSE Comments: This is a well-nourished, well-developed white male in hospital scrubs with poor grooming and appropriate eye contact with a rosalina complexion. He is missing 2 digits, pointer and middle finger on his left hand. No abnormal involuntary motor movements except for increased psychomotor agitation. He was cooperative with exam in mild distress. Speech was more normal in rate and normal volume with difficulty with pronunciation of R's. Mood described as okay Affect appeared flat today. Thought process was linear but superficial. Thought content: Patient denied suicidal or homicidal ideation. There were no delusions reported .He denied specific auditory or visual hallucinations. Attention and concentration were poor and memory was grossly intact but none were formally tested. He is alert and oriented x3. Insight was poor and judgment is impaired and impulse control is limited. There was evidence of poor frustration tolerance. Intelligence appeared commensurate with mild cognitive impairment. Vitals/I&O/Wt Last Vital Signs Temp 97.6 F 06/18/23 12:00 Pulse 103 H 06/18/23 12:00 Resp 16 06/18/23 12:00 BP 134/92 06/18/23 12:00 Pulse Ox 95 06/18/23 12:00 O2 Del Method Room Air 06/18/23 12:00 Weight last 48 hrs Weight 112.945 kg Data NPU 06/14/23 08:54 06/14/23 08:54 A&P Assessment and plan (1) Intermittent explosive disorder: (2) Suicidal ideation: (3) Alcohol use disorder, severe, dependence: (4) Nicotine dependence, unspecified, uncomplicated: (5) Post-traumatic stress disorder, chronic: (6) Major depressive disorder, recurrent, severe with psychotic features: (7) Impulse control disorder, unspecified: Plan This is a 47-year-old white male with a long history of addiction and mental health treatment known through past hospitalizations with continued agitation and anger issues along with signficant alcohol abuse. Patient requesting change in medication regimen 1.? Increase abilify to 15mg daily. Propranolol 20mg bid. Use Haldol prn for agitation/anxiety reported. Add naltrexone oral 50mg daily with plan for monthly vivitrol 380mg q monthly. 2.? Continue every 15 minute checks for safety. 3.? Encourage individual, group and milieu therapies. 4.? Encourage sober living treatment after discharge at the highest level of care to which he is willing to commit. 5. [facility] protocol for alcohol withdrawal. Involuntary Hold Information 2 96 Hour Hold: 96 Hour Involuntary Admission: Yes 96 Hour Hold Ending Date: 06/20/23 96 Hour Hold Ending Time: 10:00 Attestations NPU 2 Medical Necessity Statement*: Inpatient hospitalization is medically necessary and deemed to ?be ?the clinically appropriate intervention ?at this time.? We will monitor/initiate medications and make changes as indicated. The patient?s likely length of stay 4-6 days. Coding Level of Care Code Acute Code for [facility] Fwd Diagnoses Intermittent explosive disorder F63.81 Suicidal ideation R45.851 Alcohol use disorder, severe, dependence F10.20 Nicotine dependence, unspecified, uncomplicated F17.200 Post-traumatic stress disorder, chronic F43.12 Major depressive disorder, recurrent, severe with psychotic features F33.3 Impulse control disorder, unspecified F63.9
[2023-06-18] MEDS: trazodone 50 mg Tablet PO ×2 (20:57→23:55)
[2023-06-19 04:00] VITALS: BP 149/78; PULSE 101; RESP 18; TEMP 36.7; O2SAT 97
[2023-06-19 06:42] VITALS: BP 133/83; PULSE 94; RESP 20; TEMP 36.8; O2SAT 95
[2023-06-19] MEDS: multivitamin therapeutic Tablet 1 TAB PO (08:00)
[2023-06-19] MEDS: ARIPiprazole 10 mg Tablet 15 MG PO (08:00)
[2023-06-19] MEDS: thiamine 100 mg Tablet PO (08:00)
[2023-06-19] MEDS: naltrexone hcl 50 mg Tablet PO (08:00)
[2023-06-19] MEDS: propranolol 20 mg Tablet PO ×2 (08:00→18:16)
[2023-06-19] MEDS: folic acid 1 mg Tablet PO (08:00)
[2023-06-19] MEDS: haloperidol 5 mg Tablet PO ×2 (13:11→20:06)
[2023-06-19 14:00] VITALS: BP 131/86; PULSE 92; RESP 18; TEMP 36.6; O2SAT 96
--- NOTE | 2023-06-19 17:23 | P.NPUPN_ITS ---
Subjective NPU 2 Subjective: 47-year-old male admitted with intermitt ent explosive disorder, suicidal ideation in the context of significant alcohol abuse. Patient had reported continued cravings for alcohol. He reported no side effects from his naltrexone at this time. He had continued to endorse that he would go out and drink alcohol if he were to be discharged to a facility that was not a substance abuse facility. He had reported that his mother had a restraining order against him and he was forbidden to return home. The patient had continued to report having periods of anxiety that appeared to be actually episodes of agitation. He had appeared to respond better to Haldol for agitation. He had reportedly had past history of significant anger outburst leading to destruction of property and some legal problems. He had been able to attend groups but appeared to struggle with processing the information in groups to help him better manage his anger outbursts. Mental Status Exam 2 MSE Comments: This is a well-nourished, well-developed white male in hospital scrubs with poor grooming and appropriate eye contact with a rosalina complexion. He is missing 2 digits, pointer and middle finger on his left hand. No abnormal involuntary motor movements except for increased psychomotor agitation. He was cooperative with exam in mild distress. Speech was more normal in rate and normal volume with difficulty with pronunciation of R's. Mood described as allright Affect appeared intense and mood congruent today. Thought process was linear but superficial. Thought content: Patient denied suicidal or homicidal ideation. [place] thinking appreciated. There were no delusions reported .He denied specific auditory or visual hallucinations. Attention and concentration were poor and memory was grossly intact but none were formally tested. He is alert and oriented x3. Insight was poor and judgment is impaired and impulse control is limited. There was evidence of poor frustration tolerance. Intelligence appeared commensurate with mild cognitive impairment. Vitals/I&O/Wt Last Vital Signs Temp 97.9 F 06/19/23 14:00 Pulse 92 06/19/23 14:00 Resp 18 06/19/23 14:00 BP 131/86 06/19/23 14:00 Pulse Ox 96 06/19/23 14:00 O2 Del Method Room Air 06/19/23 06:42 Data NPU 06/14/23 08:54 06/14/23 08:54 A&P Assessment and plan (1) Intermittent explosive disorder: (2) Suicidal ideation: (3) Alcohol use disorder, severe, dependence: (4) Nicotine dependence, unspecified, uncomplicated: (5) Post-traumatic stress disorder, chronic: (6) Major depressive disorder, recurrent, severe with psychotic features: (7) Impulse control disorder, unspecified: Plan This is a 47-year-old white male with a long history of addiction and mental health treatment known through past hospitalizations with continued agitation and anger issues along with signficant alcohol abuse. Patient requesting change in medication regimen 1.? Continue abilify to 15mg daily. Propranolol 20mg bid. Use Haldol prn for agitation/anxiety reported. Continue naltrexone oral 50mg daily with plan for monthly vivitrol 380mg q monthly tommorow. 2.? Continue every 15 minute checks for safety. 3.? Encourage individual, group and milieu therapies. 4.? Encourage sober living treatment after discharge at the highest level of care to which he is willing to commit. 5. [facility] protocol for alcohol withdrawal. Involuntary Hold Information 2 96 Hour Hold: 96 Hour Involuntary Admission: Yes 96 Hour Hold Ending Date: 06/20/23 96 Hour Hold Ending Time: 10:00 Attestations NPU 2 Medical Necessity Statement*: Inpatient hospitalization is medically necessary and deemed to ?be ?the clinically appropriate intervention ?at this time.? We will monitor/initiate medications and make changes as indicated. The patient?s likely length of stay 4-6 days. Coding Level of Care Code Acute Code for [facility] Diagnoses Intermittent explosive disorder F63.81 Suicidal ideation R45.851 Alcohol use disorder, severe, dependence F10.20 Nicotine dependence, unspecified, uncomplicated F17.200 Post-traumatic stress disorder, chronic F43.12 Major depressive disorder, recurrent, severe with psychotic features F33.3 Impulse control disorder, unspecified F63.9
[2023-06-19] MEDS: neomycin-poly-bacitracin oint 28 gm 1 APPLIC TOPICAL (18:17)
[2023-06-19 19:50] VITALS: BP 142/88; PULSE 86; RESP 17; TEMP 36.4; O2SAT 95
[2023-06-19] MEDS: trazodone 50 mg Tablet PO ×2 (20:06→22:37)
[2023-06-19] MEDS: alum-mag-hydroxide-sime 30 mL UDC PO (21:27)
[2023-06-19] MEDS: hyDROXYzine 25 mg Capsule 50 MG PO (22:37)
[2023-06-20] MEDS: haloperidol 5 mg Tablet PO (02:14)
[2023-06-20 06:00] VITALS: BP 146/97; PULSE 99; RESP 18; TEMP 36.6; O2SAT 95
[2023-06-20] MEDS: ARIPiprazole 10 mg Tablet 15 MG PO (08:08)
[2023-06-20] MEDS: propranolol 20 mg Tablet PO ×2 (08:09→18:19)
[2023-06-20] MEDS: folic acid 1 mg Tablet PO (08:09)
[2023-06-20] MEDS: thiamine 100 mg Tablet PO (08:09)
[2023-06-20] MEDS: multivitamin therapeutic Tablet 1 TAB PO (08:09)
[2023-06-20] MEDS: pantoprazole DR 40 mg Tablet PO (09:04)
--- NOTE | 2023-06-20 09:18 | PC.NURSE ---
During morning assessment, patient appeared to be in good spirits. Patient denied all.
[2023-06-20] MEDS: nicotine 21 mg Patch 1 PATCH TRANSDERMA (10:15)
[2023-06-20 14:00] VITALS: BP 132/80; PULSE 92; RESP 16; TEMP 36.8; O2SAT 96
[2023-06-20] MEDS: NON-FORMULARY MEDICATION 380 EACH IM (15:26)
--- NOTE | 2023-06-20 15:32 | PC.NURSE ---
Administered Vivitrol 380mg into patient's right ventrogluteal muscle. Patient tolerated injection well. Lot: [id number]: July 2025
--- NOTE | 2023-06-20 17:13 | W.PM.NPUPNS ---
Subjective NPU Subjective: 47-year-old male admitted with intermittent explosive disorder, suicidal ideation in the context of significant alcohol abuse. Patient had tolerated the Vivitrol today. He reported a long history of lack of control regarding alcohol consumption. He had reported that his behaviors had been worse when he was under the influence of alcohol. He reported desire to stop using alcohol. He had no explosive outbursts on the unit. He had stated that he was somewhat sad about not being able to return to live with his mother but stated that his behavior had been bad at his mother's home. He had required prn Haldol for agitation but less frequent episodes of anger outbursts requiring redirection. Mental Status Exam MSE Comments: This is a well-nourished, well-developed white male in hospital scrubs with poor grooming and appropriate eye contact with a rosalina complexion. He is missing 2 digits, pointer and middle finger on his left hand. No abnormal involuntary motor movements except for increased psychomotor agitation. He was cooperative with exam in mild distress. Speech was more normal in rate and normal volume with difficulty with pronunciation of R's, monotone in quality. Mood described as okay Affect somewhat sad and restricted today. Thought process was linear but superficial. Thought content: Patient denied suicidal or homicidal ideation. [place] thinking was appreciated. There were no delusions reported. He denied specific auditory or visual hallucinations. Attention and concentration were poor and memory was grossly intact but none were formally tested. He is alert and oriented x3. Insight was poor and judgment is impaired and impulse control is limited. There was evidence of poor frustration tolerance. Intelligence appeared commensurate with mild cognitive impairment. Vitals/I&O/Wt Last Vital Signs Temp 98.3 F 06/20/23 14:00 Pulse 92 06/20/23 14:00 Resp 16 06/20/23 14:00 BP 132/80 06/20/23 14:00 Pulse Ox 96 06/20/23 14:00 O2 Del Method Room Air 06/20/23 14:00 Data NPU 06/14/23 08:54 06/14/23 08:54 A&P Assessment and plan (1) Intermittent explosive disorder: (2) Suicidal ideation: (3) Alcohol use disorder, severe, dependence: (4) Nicotine dependence, unspecified, uncomplicated: (5) Post-traumatic stress disorder, chronic: (6) Major depressive disorder, recurrent, severe with psychotic features: (7) Impulse control disorder, unspecified: Plan This is a 47-year-old white male with a long history of addiction and mental health treatment known through past hospitalizations with continued agitation and anger issues along with signficant alcohol abuse. Patient requesting change in medication regimen 1.? Continue abilify to 15mg daily. Propranolol 20mg bid. Use Haldol prn for agitation/anxiety reported. Vivitrol 380mg IM given today. 2.? Continue every 15 minute checks for safety. 3.? Encourage individual, group and milieu therapies. 4.? Encourage sober living treatment after discharge at the highest level of care to which he is willing to commit. 5. [facility] have patient enter into substance abuse inpatient facility. Involuntary Hold Information 96 Hour Hold: 96 Hour Involuntary Admission: Yes 96 Hour Hold Ending Date: 06/20/23 96 Hour Hold Ending Time: 10:00 Attestations NPU Medical Necessity Statement*: Inpatient hospitalization is medically necessary and deemed to ?be ?the clinically appropriate intervention ?at this time.? We will monitor/initiate medications and make changes as indicated. The patient?s likely length of stay 4-6 days. Coding Level of Care Code Acute Code for [facility] Diagnoses Intermittent explosive disorder F63.81 Suicidal ideation R45.851 Alcohol use disorder, severe, dependence F10.20 Nicotine dependence, unspecified, uncomplicated F17.200 Post-traumatic stress disorder, chronic F43.12 Major depressive disorder, recurrent, severe with psychotic features F33.3 Impulse control disorder, unspecified F63.9
[2023-06-20] MEDS: hyDROXYzine 25 mg Capsule 50 MG PO (20:12)
[2023-06-20] MEDS: trazodone 50 mg Tablet PO (20:12)
[2023-06-20 20:52] VITALS: BP 136/80; PULSE 86; RESP 18; TEMP 36.6; O2SAT 94
[2023-06-21] MEDS: OLANZapine 5 mg ODT PO ×2 (00:05→23:43)
[2023-06-21] MEDS: trazodone 50 mg Tablet PO ×2 (00:05→20:08)
[2023-06-21 06:00] VITALS: BP 150/79; PULSE 87; RESP 18; TEMP 36.6; O2SAT 96
[2023-06-21] MEDS: pantoprazole DR 40 mg Tablet PO (08:41)
[2023-06-21] MEDS: ARIPiprazole 10 mg Tablet 15 MG PO (08:41)
[2023-06-21] MEDS: thiamine 100 mg Tablet PO (08:41)
[2023-06-21] MEDS: propranolol 20 mg Tablet PO ×2 (08:41→18:02)
[2023-06-21] MEDS: multivitamin therapeutic Tablet 1 TAB PO (08:41)
[2023-06-21] MEDS: folic acid 1 mg Tablet PO (08:41)
--- NOTE | 2023-06-21 13:55 | P.NPUPN_ITS ---
Subjective NPU 2 Subjective: 47-year-old male admitted with intermitt ent explosive disorder, suicidal ideation in the context of significant alcohol abuse. Patient had no prn medications for aggression. He reports no side effects from abilify. He reports feeling calmer. Patient reports motivation to remain sober from alcohol as he stated his drinking had cost him his home with his mother. He was able to attend groups. Patient was more redirectable on the milieu. He denied depressed mood and was hopeful at being able to go to an inpatient substance abuse rehabilation center. Mental Status Exam 2 MSE Comments: This is a well-nourished, well-developed white male in hospital scrubs with improved grooming and appropriate eye contact with a rosalina complexion. He is missing 2 digits, pointer and middle finger on his left hand. No abnormal involuntary motor movements with no psychomotor retardation noted. He was cooperative with exam in mild distress. Speech was more normal in rate and normal volume with difficulty with pronunciation of R's, monotone in quality. Mood described as better Affect: slightly restricted. Thought process was linear and logical. Thought content: Patient denied suicidal or homicidal ideation. [place] thinking was appreciated. There were no delusions reported. He denied specific auditory or visual hallucinations. Attention and concentration were poor and memory was grossly intact but none were formally tested. He is alert and oriented x3. Insight was poor and judgment is impaired and impulse control is improving. There was evidence of poor frustration tolerance. Intelligence appeared commensurate with mild cognitive impairment. Vitals/I&O/Wt Last Vital Signs Temp 97.8 F 06/21/23 06:00 Pulse 87 06/21/23 06:00 Resp 18 06/21/23 06:00 BP 150/79 06/21/23 06:00 Pulse Ox 96 06/21/23 06:00 O2 Del Method Room Air 06/20/23 14:00 Data NPU 06/14/23 08:54 06/14/23 08:54 A&P Assessment and plan (1) Intermittent explosive disorder: (2) Suicidal ideation: (3) Alcohol use disorder, severe, dependence: (4) Nicotine dependence, unspecified, uncomplicated: (5) Post-traumatic stress disorder, chronic: (6) Major depressive disorder, recurrent, severe with psychotic features: (7) Impulse control disorder, unspecified: Plan This is a 47-year-old white male with a long history of addiction and mental health treatment known through past hospitalizations with continued agitation and anger issues along with signficant alcohol abuse. Patient requesting change in medication regimen 1.? Continue abilify to 15mg daily. Propranolol 20mg bid. Use Haldol prn for agitation/anxiety reported. Vivitrol 380mg IM given on 06/20/23. 2.? Continue every 15 minute checks for safety. 3.? Encourage individual, group and milieu therapies. 4.? Encourage sober living treatment after discharge at the highest level of care to which he is willing to commit. 5. [facility] to have patient enter into substance abuse inpatient facility. Seeking correction in interim if accepted to inpatient substance abuse facility. Involuntary Hold Information 2 96 Hour Hold: 96 Hour Involuntary Admission: Yes 96 Hour Hold Ending Date: 06/20/23 96 Hour Hold Ending Time: 10:00 Attestations NPU 2 Medical Necessity Statement*: Inpatient hospitalization is medically necessary and deemed to ?be ?the clinically appropriate intervention ?at this time.? We will monitor/initiate medications and make changes as indicated. The patient?s likely length of stay 4-6 days. Coding Level of Care Code Acute Code for [facility] Fwd Diagnoses Intermittent explosive disorder F63.81 Suicidal ideation R45.851 Alcohol use disorder, severe, dependence F10.20 Nicotine dependence, unspecified, uncomplicated F17.200 Post-traumatic stress disorder, chronic F43.12 Major depressive disorder, recurrent, severe with psychotic features F33.3 Impulse control disorder, unspecified F63.9
[2023-06-21 14:00] VITALS: BP 133/84; PULSE 106; RESP 20; TEMP 36.6; O2SAT 96
--- NOTE | 2023-06-21 17:50 | PC.NURSE ---
STAFF PERFORMED RANDOM ROOM CHECKS AT AROUND 1745. NO CONTRABAND WAS FOUND IN PT ROOM. PT WAS COOPERATIVE WITH ROOM CHECK.
[2023-06-21 20:08] VITALS: BP 129/83; PULSE 90; RESP 18; TEMP 36.5; O2SAT 95
[2023-06-21] MEDS: hyDROXYzine 25 mg Capsule 50 MG PO (20:08)
[2023-06-22 06:00] VITALS: RESP 15
[2023-06-22] MEDS: propranolol 20 mg Tablet PO (07:36)
[2023-06-22] MEDS: thiamine 100 mg Tablet PO (07:36)
[2023-06-22] MEDS: multivitamin therapeutic Tablet 1 TAB PO (07:36)
[2023-06-22] MEDS: folic acid 1 mg Tablet PO (07:36)
[2023-06-22] MEDS: pantoprazole DR 40 mg Tablet PO (07:36)
[2023-06-22] MEDS: ARIPiprazole 10 mg Tablet 15 MG PO (07:37)
[2023-06-22] MEDS: haloperidol 5 mg Tablet PO (11:52)
--- NOTE | 2023-06-22 11:53 | PC.NURSE ---
Patient stated to this nurse that he is hearing voices, but he is unsure of what is being said. This nurse administered haldol 5mg PO. Will continue to monitor.
--- NOTE | 2023-06-22 12:43 | DCPLANNER ---
. IMM was printed and explained and give to pt and copy placed in file.
[2023-06-22 12:49] VITALS: RESP 15
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
== END 2023-06-22 14:08 | DRG 883 ==
LOC: ER 10:07 → NP 10:22
PROVIDERS: Admitting Provider Psychiatry & Neurology Psychiatry; Emergency Provider Family Medicine; Visit Provider Psychiatry & Neurology Psychiatry
DX: F63.81 Intermittent explosive disorder (principal); R45.851 Suicidal ideations; F10.229 Alcohol dependence with intoxication, unspecified; Y90.6 Blood alcohol level of 120-199 mg/100 ml; F17.210 Nicotine dependence, cigarettes, uncomplicated; F43.12 Post-traumatic stress disorder, chronic; F33.3 Major depressive disorder, recurrent, severe with psychotic symptoms; Z62.810 Personal history of physical and sexual abuse in childhood
CPT/HCPCS: 36415; 80053; 80306; 80307; 81003; 82140; 85025; 96372; 97150; 97165; 99285

== ENCOUNTER 2024-11-24 10:26 | Inpatient (IN) | payer MEDICARE, MEDICAID, SELFPAY ==
--- OUTSIDE RECORDS SUMMARY | 2024-09-12 10:30 | XMS_ITS ---
Author Organization [facility] Address [address] [place] [id number] Care Team Providers Care Operating System Designer Name Role Phone Milagros Ann Primary Care Provider Willa Moreau Unavailable [phone] Allergies Allergen (clinical drug ingredient) Drug/Non Drug Allergy documented on EMR Reaction Allergy Type Onset Date Status Substance with penicillin structure and antibacterial mechanism of action (substance) Penicillins Anaphylaxis-Calvin ymyxinB Drug Allergy Active REASON FOR VISIT 1 month f/u Medications Medication SIG (Take, Route, Frequency, Duration) Notes Start Date End Date Status busPIRone HCl 5 MG Tablet 1 tablet Orally Twice a day; Duration: 30 days 08/14/2024 Unknown Propranolol HCl 20 MG Tablet 1 tablet Orally Twice a day; Duration: 30 days Unknown Ergocalciferol 1.25 MG (19825 UT) Capsule 1 capsule Orally Once a week; Duration: 30 days Unknown Omeprazole 20 MG Capsule Delayed Release 1 capsule Orally Once a day; Duration: 90 days 08/28/2024 Unknown SEROquel 100 MG Tablet 1 tablet Orally Once a day; Duration: 30 days Please discontinue Rexulti 0.5mg. MH Unknown Atorvastatin Calcium 20 MG Tablet 1 tablet Orally Once a day; Duration: 30 days 09/18/2024 Active Ibuprofen 400 MG Tablet 1 tablet with food or milk as needed Orally 3 times a day; Duration: 30 days 07/31/2024 Unknown Geodon 20 MG Capsule 1 capsule with food Orally Twice a day; Duration: 30 days Please discontinue Rexulti 0.5mg. MH Unknown traZODone HCl 50 MG Tablet 1 tablet at bedtime Orally Once a day; Duration: 30 days Discontinue 100mg trazodone - this RX will replace it. MH Unknown Social History Social History Tobacco Use: Social Info Question Answer Notes Smoking History Are you a tobacco smoker / vaper? curr ent smoker How many cigarettes/cigar a day do you smoke? 11 - 20 How long did you smoke? 20 to 30 years Vital Signs Blood pressure systolic 126 mm Hg 09/13/19 25 Blood pressure diastolic 74 mm Hg 025 Heart Rate 97 /min 09/12/2024 Respiratory Rate 22 /min 09/12/2024 Oximetry 96 % 09/12/2024 Encounters Encounter Location Date Provider Diagnosis [facility] [address] [place] [address] 09/12/2024 Willa Moreau Hyperlipidemia E78.5 Assessments Encounter Date Diagnosis (ICD Code) Assessment Notes Treatment Notes Treatment Clinical Notes Section Notes 09/12/2024 Hyperlipidemia (ICD-10 - E78.5) Plan Of Treatment Medication Medication Name Sig Start Date Stop Date Notes Atorvastatin Calcium 20 MG Tablet 1 tablet Orally Once a day; Duration: 30 days 09/18/2024 Next Appt Details Follow Up: 4 Weeks, Reason: History and Physical Notes * HPI (History of Present Illness) Category Sub-Category Detail Notes Category Not es HPI Pt seen today f or mangement and evaluation of cfhronic conditions. He is currently in treatment for alcohol abuse. He is tolerating his medications. He is tolerating the dose. Will increase triglycerides over 700. We discussed dietary and lifestyle mpdifficatopms. He has no acute concerns Examination Category Sub-Category Detail Notes Category Not es Physical Exam SPC General: alert & orient ed x 3, male, no acute distress Head: atraumatic, normocep halic Eyes: pupil equal and reac tive to light, conjunctiva pink Cardiac: regular, rate and rh ythm Lung: clear to auscultatio n Abdomen: soft, non tender, no n distended, bowel sounds present Musculoskeletal normal range of xiomara on Extremities: no edema Neurologic: alert oriented Progress Notes * Avi ARCOSOB: [birth year] (49 yo M)Acc No.[id number]:09/12/2024 Progress Notes Patient: Zak Wilson Provider: Angelica Moreau NP :1975 A ge:48 Y S ex:Male Date:09/12/2024 Address:[address], [id number] Pcp:Milagros Ann Subjective: * Chief Complaints: * 1 month f/u * HPI: H PI: Pt seen today for mangement and evaluation of cfhronic conditions. He is currently in treatment for alcohol abuse. He is tolerating his medications. He is tolerating the dose. Will increase triglycerides over 700. We discussed dietary and lifestyle mpdifficatopms. He has no acute concerns. * Medical History: HTN Medical History Verified * Surgical History: Finger removal ankle surgery/ metal plate and screws Surgical History verified. * Hospitalization/Major Diagno stic Procedure: Mental facility 2023 Hospitalization Verified. * Family History: F ather: , diagnosed with Diabetes, Hypertension, Heart Disease. M other: alive.?Paternal Grandfather: . P aternal Grandmother: . M aternal Grandfather: . M aternal Grandmother: . S ister: alive. 1 sister(s) . . F amily History Verified.. * Social History: T obacco Use: S moking History A re you a tobacco smoker / vaper? c urrent smoker H ow many cigarettes/cigar a day do you smoke??11 - 20 H ow long did you smoke? 2 0 to 30 years S ocial History Verified. * Medications: D iscontinuedLipitor 10 MG Tablet 1 tablet Orally Once a day Discontinued Lipitor 10 MG Tablet 1 tablet Orally Once a day UnknownIbuprofen 400 MG Tablet 1 tablet with food or milk as needed Orally 3 times a day Geodon 20 MG Capsule 1 capsule with food Orally Twice a day , Notes to Pharmacist: Please discontinue Rexulti 0.5mg. MHtraZODone HCl 50 MG Tablet 1 tablet at bedtime Orally Once a day , Notes to Pharmacist: Discontinue 100mg trazodone - this RX will replace it. MHSEROquel 100 MG Tablet 1 tablet Orally Once a day , Notes to Pharmacist: Please discontinue Rexulti 0.5mg. MHbusPIRone HCl 5 MG Tablet 1 tablet Orally Twice a day Propranolol HCl 20 MG Tablet 1 tablet Orally Twice a day Ergocalciferol 1.25 MG (26822 UT) Capsule 1 capsule Orally Once a week Omeprazole 20 MG Capsule Delayed Release 1 capsule Orally Once a day Unknown Ibuprofen 400 MG Tablet 1 tablet with food or milk as needed Orally 3 times a day Unknown Geodon 20 MG Capsule 1 capsule with food Orally Twice a day , Notes to Pharmacist: Please discontinue Rexulti 0.5mg. MHUnknown traZODone HCl 50 MG Tablet 1 tablet at bedtime Orally Once a day , Notes to Pharmacist: Discontinue 100mg trazodone - this RX will replace it. MHUnknown SEROquel 100 MG Tablet 1 tablet Orally Once a day , Notes to Pharmacist: Please discontinue Rexulti 0.5mg. MHUnknown busPIRone HCl 5 MG Tablet 1 tablet Orally Twice a day Unknown Propranolol HCl 20 MG Tablet 1 tablet Orally Twice a day Unknown Ergocalciferol 1.25 MG (04422 UT) Capsule 1 capsule Orally Once a week Unknown Omeprazole 20 MG Capsule Delayed Release 1 capsule Orally Once a day * Allergies: P enicillins: Anaphylaxis-PolymyxinByesAllergies Verified. Objective: * Vitals: B P:126/74mm Hg, HR:97/min, RR:22/min, Oxygen sat %:96%. * Examination: P hysical Exam SPC: General: a lert & oriented x 3, male, no acute distress. Head: a traumatic, normocephalic. Eyes: p upil equal and reactive to light, conjunctiva pink.? Cardiac: r egular, rate and rhythm. Lung: c lear to auscultation. Abdomen: s oft, non tender, non distended, bowel sounds present. Musculoskeletal n ormal range of motion. Extremities: n o edema. Neurologic: a lert oriented. Assessment: * Assessment: 1. H yperlipidemia - E78.5 (Primary) Plan: * Treatment: * Follow Up: 4 Weeks Billing Information: * Visit Code: 14916 Office Visit, Est Pt., Level 4. * Electronic signature of PAN Blanchard on 11/24/2024 at 10:30 AM CDT Sign off status: Pending * Provider: Angelica Moreau NP Date: 0 09/12/2024 Generated for Almaz potts/Jeni/Araceliitting on: 0 11/24/2024 10:30 AM CDT
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
[2024-11-24 10:31] VITALS: BP 118/75; PULSE 59; RESP 18; TEMP 36.6; O2SAT 97
[2024-11-24 10:58] LABS: Hematocrit 45.4 % (37-53); Hemoglobin 15.20 g/dL (11.27-16.99); Mean Corpuscular HGB Conc 33.5 g/dL (30-55); Mean Corpuscular Hemoglobin 30.2 pg (27-33); Mean Corpuscular Volume 90.3 fl (82-101); Nucleated Red Blood Cells % 0 %; Platelet Count 252 10^3/cmm (157-399); Red Blood Count 5.03 10^6/uL (3.85-5.65); White Blood Count 5.36 10^3/uL (3.29-11.43)
--- NOTE | 2024-11-24 11:08 | PC.PHAR ---
Patient states he isn't taking any medications or vitamins. Patient states he is suppose to be on vitamins but hasb't taken any in a while.
[2024-11-24 11:20] LABS: Alanine Aminotransferase 14 U/L (0-41); Albumin Level 4.4 g/dL (3.5-5.2); Alkaline Phosphatase 80 U/L (40-130); Anion Gap 18.2 (5-19); Aspartate Amino Transferase 14 U/L (0-40); Blood Urea Nitrogen 8 mg/dL (6-20); Calcium 9.5 mg/dL (8.5-10.5); Carbon Dioxide 24 mmol/L (22-29); Chloride 103 mmol/L (98-107); Globulin 2.8 g/dL (1.3-4.6); Glucose 98 mg/dL (65-115); Osmolality Calculated 290 mOsm/kg (285-295); Potassium 4.2 mmol/L (3.5-5.1); Sodium 141 mmol/L (136-145); Total Protein 7.2 g/dL (6.6-8.7)
[2024-11-24 11:21] LABS: Acetaminophen < 5.0 ug/mL (10-30); Alcohol Level < 10 mg/dL (0-10); Salicylate < 0.3 mg/dL (3-10)
[2024-11-24 11:49] LABS: PCP Screen Urine Negative (Negative)
[2024-11-24 12:30] VITALS: BP 93/65; PULSE 63; RESP 16; TEMP 37; O2SAT 95
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
[2024-11-24 13:35] VITALS: BP 93/65; PULSE 63; RESP 16; TEMP 37; O2SAT 95
[2024-11-24 16:38] VITALS: PULSE 60
--- NOTE | 2024-11-24 16:38 | ECG_ITS ---
[facility] Test Date: 2024-11-24 Pat Name: Zak Arcos Department: Room: 154 Gender: Male Apns: : 1975 Requested By: Kae Marrufo Order Number: [id number] Fortunato MD: Behzad Carvalho M.D. Measurements Intervals [place] Rate: 56 P: 3 NV: 192 QRS: 55 QRSD: 105 T: 35 QT: 385 QTc: 373 Interpretive Statements SINUS BRADYCARDIA EARLY REPOLARIZATION [ST ELEVATION WITH NORMALLY INFLECTED T-WAVE] NONSPECIFIC T-WAVE ABNORMALITY Compared to ECG 07/02/2020 23:14:23 Early repolarization now present Sinus rhythm no longer present T-wave abnormality still present Electronically Signed On 11-24-2024 20:28:13 CDT by Behzad Carvalho M.D. [email or web address]
[2024-11-24 20:12] VITALS: BP 122/80; PULSE 60; RESP 16; TEMP 36.9; O2SAT 97
[2024-11-25 06:00] VITALS: BP 131/80; PULSE 80; RESP 18; TEMP 36.6; O2SAT 98
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
[2024-11-25 14:00] VITALS: BP 117/75; PULSE 71; RESP 16; TEMP 36.6; O2SAT 96
[2024-11-25 19:22] VITALS: BP 125/80; PULSE 68; RESP 18; TEMP 36.6; O2SAT 96
[2024-11-26 06:00] VITALS: BP 135/78; PULSE 55; RESP 17; TEMP 36.6; O2SAT 96
[2024-11-26 14:00] VITALS: BP 109/64; PULSE 67; RESP 16; TEMP 36.9; O2SAT 93
--- NOTE | 2024-11-26 18:20 | P.NPUPN_ITS ---
Subjective NPU 2 Subjective: 49-year-old male admitted with intermitt ent explosive disorder, suicidal ideation in the context of significant alcohol abuse. The patient had no explosive outburst. He had reported that he had felt a little bit calmer. He continued to pace the hallway and stated that he was grateful to be here and wished to have a new place to live. He had been able to attend groups today. He reported no sleep disturbance. He had reported no cravings for alcohol. He had reported having continued angry thoughts but stated that he was trying not to act on them. Mental Status Exam 2 MSE Comments: This is a well-nourished, well-developed white male in hospital scrubs with adequate grooming and appropriate eye contact. He is missing 2 digits, pointer and middle finger on his left hand. No abnormal involuntary motor movements, tics and tremors appreciated. He was cooperative with exam in mild acute distress with increased psychomotor agitation. Speech was more decreased in rate and normal in volume with difficulty with pronunciation of R's and slurred. Mood described as frustrated. Affect was irritable and mood congruent. Thought process was linear and logical. Thought content: Patient denied suicidal or homicidal ideation. There was no evidence of delusional thinking. He endorsed auditory hallucinations and denied visual hallucinations. He continued to appear distracted by his thoughts. Attention and concentration were poor and memory was mostly intact but none were formally tested. He is alert and oriented x3. Insight was poor and judgment is impaired and impulse control is limited. There was evidence of poor frustration tolerance. Intelligence appeared commensurate with mild cognitive impairment. Vitals/I&O/Wt Last Vital Signs Temp 98.4 F 11/26/24 14:00 Pulse 67 11/26/24 14:00 Resp 16 11/26/24 14:00 BP 109/64 11/26/24 14:00 Pulse Ox 93 11/26/24 14:00 O2 Del Method Room Air 11/26/24 06:00 Data NPU 11/24/24 10:42 11/24/24 10:42 A&P Assessment and plan 1. Intermittent explosive disorder: 2. Auditory hallucinations: 3. Depression: 4. Post-traumatic stress disorder, chronic: Plan: 49-year-old male with a history of intermittent explosive disorder along with mild cognitive impairment requesting help with managing his anger currently remaining sober with a history of polysubstance dependence. #1.? Engage patient in individual milieu and group therapy. #2?? Recommend sober living treatment at the highest level of care to which the patient is willing to commit #3??? Increase Haldol to 2mg bid to target agitation.?? #4?? TO-15 minute checks? #5?? Will attempt to gather collateral information PDMP PDMP Reviewed: Not Reviewed Involuntary Hold Information 2 Hold Status: Date/Time Hold Expires: voluntary 96 Hour Hold: 96 Hour Involuntary Admission: Yes Attestations NPU 2 Medical Necessity Statement*: Inpatient hospitalization is medically necessary and deemed to ?be ?the clinically appropriate intervention ?at this time.? We will monitor/initiate medications and make changes as indicated.? The patient?s likely length of stay 4-6 days. Coding Level of Care Code Acute Code for Chg Fwd Diagnoses Intermittent explosive disorder F63.81 Auditory hallucinations R44.0 Depression F32.A Post-traumatic stress disorder, chronic F43.12
[2024-11-26 22:00] VITALS: BP 114/79; PULSE 64; RESP 18; TEMP 37.1; O2SAT 97
[2024-11-27 06:00] VITALS: BP 104/65; PULSE 63; RESP 18; TEMP 37; O2SAT 97
--- NOTE | 2024-11-27 08:45 | NUR.SHIFT ---
Pt states that he slept good last night, until a pt came in yelling. Pt states this made him anxious and then gave him a bad attitude. He rates his anxiety a 2/10 and depression 5/10. No reports of SI/HI or hallucinations. Rates his back pain a 4/10. He is calm and cooperative on assessment.
[2024-11-27 14:00] VITALS: BP 116/69; PULSE 66; RESP 16; TEMP 37.1; O2SAT 95
--- NOTE | 2024-11-27 17:02 | P.NPUPN_ITS ---
Subjective NPU 2 Subjective: 49-year-old male admitted with intermitt ent explosive disorder, suicidal ideation with a past history of polysubstance abuse. The patient reported no suicidal thoughts. He had no acts of aggression here. He had reported that he had not been hearing the voices as much. He reported that he had felt less angry. He reported no cravings for alcohol. He had reported adequate sleep currently. He had denied feeling depressed at this time. The patient had no explosive outbursts or acts of aggression on the unit. He had avoided others on the milieu and did not attend groups. He reported no desire to act on his angry thoughts. He reports that his intense intrusive thoughts were less frequent. Mental Status Exam 2 MSE Comments: This is a well-nourished, well-developed white male in hospital scrubs with adequate grooming and appropriate eye contact. He is missing 2 digits, pointer and middle finger on his left hand. No abnormal involuntary motor movements, tics and tremors appreciated. He was cooperative with exam in mild acute distress with increased psychomotor agitation. Speech was more decreased in rate and normal in volume with difficulty with pronunciation of R's and slurred. Mood described as better. Affect was blunted. Thought process was linear and logical. Thought content: Patient denied suicidal or homicidal ideation. There was no evidence of delusional thinking. He denied auditory hallucinations and denied visual hallucinations. He continued to appear distracted by his thoughts as he was pacing the halls. Attention and concentration were poor and memory was mostly intact but none were formally tested. He is alert and oriented x3. Insight was poor and judgment is impaired and impulse control is limited. There was evidence of poor frustration tolerance. Intelligence appeared commensurate with mild cognitive impairment. Vitals/I&O/Wt Last Vital Signs Temp 98.8 F 11/27/24 14:00 Pulse 66 11/27/24 14:00 Resp 16 11/27/24 14:00 BP 116/69 11/27/24 14:00 Pulse Ox 95 11/27/24 14:00 O2 Del Method Room Air 11/27/24 14:00 Data NPU 11/24/24 10:42 11/24/24 10:42 A&P Assessment and plan 1. Intermittent explosive disorder: 2. Auditory hallucinations: 3. Depression: 4. Post-traumatic stress disorder, chronic: Plan: 49-year-old male with a history of intermittent explosive disorder along with mild cognitive impairment requesting help with managing his anger currently remaining sober with a history of polysubstance dependence. #1.? Engage patient in individual milieu and group therapy. #2?? Recommend sober living treatment at the highest level of care to which the patient is willing to commit #3??? Continue Haldol to 2mg bid to target agitation. Patient may have legal charges that prevent him from going to specific shelters on discharge. #4?? TO-15 minute checks? #5?? Will attempt to gather collateral information PDMP PDMP Reviewed: Not Reviewed Involuntary Hold Information 2 Hold Status: Date/Time Hold Expires: voluntary 96 Hour Hold: 96 Hour Involuntary Admission: Yes Attestations NPU 2 Medical Necessity Statement*: Inpatient hospitalization is medically necessary and deemed to ?be ?the clinically appropriate intervention ?at this time.? We will monitor/initiate medications and make changes as indicated.? The patient?s likely length of stay 4-6 days. Coding Level of Care Code Acute Code for Chg Fwd Diagnoses Intermittent explosive disorder F63.81 Auditory hallucinations R44.0 Depression F32.A Post-traumatic stress disorder, chronic F43.12
[2024-11-27 20:19] VITALS: BP 111/68; PULSE 70; RESP 18; TEMP 36.7; O2SAT 95
[2024-11-28 06:00] VITALS: BP 108/70; PULSE 60; RESP 17; TEMP 36.4; O2SAT 98
--- NOTE | 2024-11-28 13:21 | DCPLANNER ---
IMM was given to pt and rights explained and copy placed in his file.
[2024-11-28 13:51] VITALS: BP 99/62; PULSE 69; RESP 16; TEMP 36.6; O2SAT 97
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
[2024-11-28 16:28] VITALS: BP 99/62; PULSE 69; RESP 16; TEMP 36.6; O2SAT 97
--- NOTE | 2024-11-28 16:53 | PC.NURSE ---
Patient given written and verbal discharge instructions. All questions were answered and discharge packet was signed.
== END 2024-11-28 17:12 | disposition home or self-care (01) | DRG 883 ==
LOC: ER 11:45 → NP 11:51
PROVIDERS: Admitting Provider Psychiatry & Neurology Psychiatry; Emergency Provider Physician Assistant; PCP Nurse Practitioner Family; Visit Provider Psychiatry & Neurology Psychiatry
DX: F63.81 Intermittent explosive disorder (principal); R45.851 Suicidal ideations; F32.A Depression, unspecified; F43.12 Post-traumatic stress disorder, chronic; Z62.810 Personal history of physical and sexual abuse in childhood; Z62.811 Personal history of psychological abuse in childhood; F10.11 Alcohol abuse, in remission; F15.11 Other stimulant abuse, in remission; F17.210 Nicotine dependence, cigarettes, uncomplicated; Z88.0 Allergy status to penicillin; Z89.022 Acquired absence of left finger(s); G31.84 Mild cognitive impairment of uncertain or unknown etiology
CPT/HCPCS: 36415; 80053; 80306; 80307; 85025; 93005; 97150; 97165; 99285; J9999

== ENCOUNTER 2024-12-11 11:34 | Inpatient (IN) | payer MEDICARE, MEDICAID, SELFPAY ==
--- NOTE | 2024-12-11 11:35 | W.ED.PSYCHS ---
HPI - Psych General: Chief Complaint: Psychiatric Symptoms Stated Complaint: mhe Time Seen by Provider: 12/11/24 11:35 History of Present Illness: 49-year-old male with a history of intermittent explosive disorder, alcohol use disorder, nicotine dependence, PTSD, depression and impulse control disorder who presents emergency room with police. And concerns he is hallucinating. Apparently he was in a home of someone who is out of town and the police have been called on him and he said that there was bodies and bad things going on in the home and there was nothing there. He denies all this. Related Data Previous Rx's ?Medication ?Instructions ?Recorded haloperidol 2 mg tablet 2 mg PO BID 30 days #60 tabs 11/28/24 pantoprazole 40 mg tablet,delayed 40 mg PO QAM 30 days #30 tabs 11/28/24 release Allergies Allergy/AdvReac Type Severity Reaction Status Date / Time Penicillins Allergy Severe Anaphylaxis Verified 06/14/23 09:11 Review of Systems Narrative: Constitutional symptoms: Negative except as documented in HPI. Skin symptoms: Negative except as documented in HPI. Eye symptoms: Negative except as documented in HPI. ENMT symptoms: Negative except as documented in HPI. Respiratory symptoms: Negative except as documented in HPI. Cardiovascular symptoms: Negative except as documented in HPI. Gastrointestinal symptoms: Negative except as documented in HPI. Genitourinary symptoms: Negative except as documented in HPI. Musculoskeletal symptoms: Negative except as documented in HPI. Neurologic symptoms: Negative except as documented in HPI. Psychiatric symptoms: Negative except as documented in HPI. Endocrine symptoms: Negative except as documented in HPI. [facility] ED PFSH: Social History Smoking and tobacco/nicotine status: current every day tobacco/nicotine user cigarettes Packs smoked per day: 1 Years cigarettes smoked: 22 Quit status (tobacco/nicotine): has tried quititng Number of times tried to quit tobacco: 2 Second hand smoke exposure: No Physical Exam Narrative: EXAM NARRATIVE: General: Alert, no acute distress. Skin: Warm, dry. Head: Normocephalic, atraumatic. Neck: Supple, trachea midline. Eye: Extraocular movements are intact. Ears, nose, mouth and throat: mucosa moist. Cardiovascular: Regular, Normal peripheral perfusion. Respiratory: Lungs are clear to auscultation, respirations are non-labored, breath sounds are equal, Symmetrical chest wall expansion. Gastrointestinal: Soft, Nontender, Non distended Musculoskeletal: Normal ROM, no deformity. Neurological: Alert and oriented, No focal neurological deficit observed. Psychiatric: Cooperative, patient has an odd affect but is very polite Course Vital Signs: Vital signs: Vital Signs Temperature 97.9 F 12/11/24 11:36 Pulse Rate 104 H 12/11/24 11:36 Respiratory Rate 16 12/11/24 11:36 Blood Pressure 124/77 12/11/24 11:36 Pulse Oximetry 98 12/11/24 11:36 Oxygen Delivery Me thod Room Air 12/11/24 11:36 MDM - Psych Medical Decision Making Medical decision making: Differential diagnosis for patient with reported psychosis with plan for psychiatric admission including but not limited to and based on the above HPI, review of systems and physical exam: concerns for infection, alcohol intoxication, cardiac issues or other medical problems prior to psychiatric admission. Orders placed to evaluate differential diagnosis based on the above differential, HPI and physical exam labwork, ekg ordered to evaluate the pathologies and to clear the patient medically prior to psychiatric admission EKG: Time 1210. Rate 102. Sinus tachycardia, No ST-T changes, no ectopy, normal AR & QRS intervals, This was reviewed and interpreted by myself the ER physician at 1215 Lab Review: Laboratory results were reviewed and interpreted by myself the emergency room physician. - Medically cleared. - EKG shows no ischemic changes. - Blood alcohol level is negative, as well as salicylate and Tylenol. - Drug screen and urinalysis pending at admission - No anemia. - BUN and creatinine are within normal limits. I reviewed the patient's medical record. Consultation: I spoke with Dr. Cuevas who is on-call for psychiatry who agrees to admission. Assessment and plan: Psychosis ? 96-hour hold was placed -Admission to neuropsychiatric unit for continued evaluation and treatment. - All lab work was reviewed and interpreted personally by myself, the ER physician - Evaluation and treatment of this problem were appropriate in the emergency setting Lab Data 12/11/24 12:19 12/11/24 12:19 Laboratory Results WBC 7.65 10^3/uL (3.29-11.43) 12/11/24 12:19 RBC 5.13 10^6/uL (3.85-5.65) 12/11/24 12:19 Hgb 15.50 g/dL (11.27-16.99) 12/11/24 12:19 Hct 45.3 % (37-53) 12/11/24 12:19 MCV 88.3 fl (82-101) 12/11/24 12:19 MCH 30.2 pg (27-33) 12/11/24 12:19 MCHC 34.2 g/dL (30-55) 12/11/24 12:19 RDW 12.0 % (12.1-15.1) L 12/11/24 12:19 Plt Count 299 10^3/cmm (157-399) 12/11/24 12:19 MPV 9.4 fL (7.4-10.4) 12/11/24 12:19 Neut % (Auto) 73.7 % 12/11/24 12:19 Lymph % (Auto) 18.0 % 12/11/24 12:19 Josephine % (Auto) 5.9 % 12/11/24 12:19 Eos % (Auto) 1.4 % 12/11/24 12:19 Baso % (Auto) 0.7 % 12/11/24 12:19 Neut # (Auto) 5.64 10^3/uL (1.8-7.7) 12/11/24 12:19 Lymph # (Auto) 1.4 10^3/uL (0.8-4.8) 12/11/24 12:19 Josephine # (Auto) 0.5 10^3/uL (0.2-0.9) 12/11/24 12:19 Eos # (Auto) 0.1 10^3/uL (0.0-0.8) 12/11/24 12:19 Baso # (Auto) 0.1 10^3/uL (0.0-0.1) 12/11/24 12:19 Nucleated RBC % (auto) 0 % 12/11/24 12:19 Nucleated RBCs # 0.0 /100WBC 12/11/24 12:19 Sodium 140 mmol/L (136-145) 12/11/24 12:19 Potassium 3.7 mmol/L (3.5-5.1) 12/11/24 12:19 Chloride 100 mmol/L (98-107) 12/11/24 12:19 Carbon Dioxide 24 mmol/L (22-29) 12/11/24 12:19 Anion Gap 19.7 (5-19) H 12/11/24 12:19 BUN 27 mg/dL (6-20) H 12/11/24 12:19 Creatinine 1.1 mg/dL (0.7-1.2) 12/11/24 12:19 GFR Calculation 71.8 mL/min (90-130) L 12/11/24 12:19 Glucose 159 mg/dL (65-115) H 12/11/24 12:19 Calculated Osmolality 298 mOsm/kg (285-295) H 12/11/24 12:19 Calcium 9.8 mg/dL (8.5-10.5) 12/11/24 12:19 Total Bilirubin 1.4 mg/dL (0.15-1.2) H 12/11/24 12:19 AST 34 U/L (0-40) 12/11/24 12:19 ALT 17 U/L (0-41) 12/11/24 12:19 Alkaline Phosphatase 90 U/L (40-130) 12/11/24 12:19 Total Protein 8.7 g/dL (6.6-8.7) 12/11/24 12:19 Albumin 5.1 g/dL (3.5-5.2) 12/11/24 12:19 Globulin 3.6 g/dL (1.3-4.6) 12/11/24 12:19 TSH 1.28 uIU/mL (0.27-4.20) 12/11/24 12:19 Salicylates < 0.3 mg/dL (3-10) L 12/11/24 12:19 Acetaminophen < 5.0 ug/mL (10-30) L 12/11/24 12:19 Ethyl Alcohol < 10 mg/dL (0-10) 12/11/24 12:19 No radiology studies performed this visit Discharge Plan Discharge Condition: Stable Prescriptions: No Action haloperidol 2 mg tablet 2 mg PO BID 30 Days Qty: 60 1RF pantoprazole 40 mg tablet,delayed release (DR/EC) 40 mg PO QAM 30 Days Qty: 30 1RF Referrals: Dayana Dixon NP [Primary Care Provider, Family Practice] Print Language: Afghan Coding Level of Care Code ED Station Air Traffic Control Specialist for [facility]rick
[2024-12-11 11:36] VITALS: BP 124/77; PULSE 104; RESP 16; TEMP 36.6; O2SAT 98; BMI 29.5
--- NOTE | 2024-12-11 12:10 | ECG_ITS ---
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1975 Requested By: Arlyn Quintero Order Number: [id number] Reading MD: HOSSEIN BRYAN Measurements Intervals [place] Rate: 102 P: -4 CT: 157 QRS: 62 QRSD: 102 T: 9 QT: 348 QTc: 453 Interpretive Statements SINUS TACH[address]ARD[address] ST DEVIATION AND MODERATE T-WAVE ABNORMALITY, CONSIDER ANTERIOR ISCHEMIA [-0.1+ mV T-WAVE IN V3/V4] Compared to ECG 11/24/2024 10:43:55 Possible ischemia now present Sinus bradycardia no longer present Early repolarization no longer present T-wave abnormality still present Electronically Signed On 12-11-2024 16:50:34 CDT by HOSSEIN BRYAN [email or web address]
[2024-12-11 12:26] LABS: Hematocrit 45.3 % (37-53); Hemoglobin 15.50 g/dL (11.27-16.99); Mean Corpuscular HGB Conc 34.2 g/dL (30-55); Mean Corpuscular Hemoglobin 30.2 pg (27-33); Mean Corpuscular Volume 88.3 fl (82-101); Nucleated Red Blood Cells % 0 %; Platelet Count 299 10^3/cmm (157-399); Red Blood Count 5.13 10^6/uL (3.85-5.65); White Blood Count 7.65 10^3/uL (3.29-11.43)
[2024-12-11 12:51] LABS: Alanine Aminotransferase 17 U/L (0-41); Albumin Level 5.1 g/dL (3.5-5.2); Alkaline Phosphatase 90 U/L (40-130); Anion Gap 19.7 (5-19); Aspartate Amino Transferase 34 U/L (0-40); Blood Urea Nitrogen 27 mg/dL (6-20); Calcium 9.8 mg/dL (8.5-10.5); Carbon Dioxide 24 mmol/L (22-29); Chloride 100 mmol/L (98-107); Creatinine Clr Calc Pharmacy 106.9152; Globulin 3.6 g/dL (1.3-4.6); Glucose 159 mg/dL (65-115); Osmolality Calculated 298 mOsm/kg (285-295); Potassium 3.7 mmol/L (3.5-5.1); Sodium 140 mmol/L (136-145); Thyroid Stimulating Hormone 1.28 uIU/mL (0.27-4.20); Total Protein 8.7 g/dL (6.6-8.7)
[2024-12-11 12:58] LABS: Acetaminophen < 5.0 ug/mL (10-30); Alcohol Level < 10 mg/dL (0-10); Salicylate < 0.3 mg/dL (3-10)
--- NOTE | 2024-12-11 13:15 | PC.NURSE ---
Pt was read his 96 hour hold rights at this time. Security was present
[2024-12-11 13:43] VITALS: BP 143/81; PULSE 91; RESP 22; TEMP 36.5; O2SAT 98
[2024-12-11 14:00] VITALS: RESP 18
--- NOTE | 2024-12-11 15:29 | PC.ADMIT ---
[address] Admission Note:Pt arrived to ED with police. It was reported that he was seeing people and staying in a unoccupied [employer]BN[employer] that did not belong to him. He tells the ER staff that he has only smoked a little weed. When I asked pt what was going on for the day he states it's just one of them days When I asked him about the house he was found at he states, I wasn't doing nothing at that house He is calm and cooperative on assessment. The patient,Zak Arcos,49 y/o, was given written information regarding hospital policies, unit procedures and contact persons. Patient's smoking status: current every day smoker. Vital Signs - 8 hr 12/11/24 11:36 12/11/24 13:43 12/11/24 14:00 Temperature 97.9 F 97.7 F Pulse Rate 104 H 91 Respiratory Rate 16 22 H 18 Blood Pressure 124/77 143/81 Pulse Oximetry 98 98 Oxygen Delivery Method Room Air Room Air
[2024-12-11 20:27] VITALS: BP 124/69; PULSE 93; RESP 17; TEMP 36.6; O2SAT 96
[2024-12-11 20:29] LABS: Glucose Urine UA Negative (Normal); Nitrate Urine Negative (Negative); Specific Gravity, Urine 1.029 (1.005-1.030)
[2024-12-11 20:44] LABS: PCP Screen Urine Negative (Negative)
[2024-12-11 21:13] LABS: Add Urine Microscopic? YES; UA Manual Slide Review YES
[2024-12-12 06:00] VITALS: BP 149/75; PULSE 87; RESP 20; TEMP 36.4; O2SAT 97
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
[2024-12-12 14:00] VITALS: BP 145/72; PULSE 110; RESP 18; TEMP 36.6; O2SAT 96
--- NOTE | 2024-12-12 19:45 | PC.NURSE ---
At approximately 19:00 when Dayanna NATASHA went into patients room to check on him because he was loudly screaming profanities at a unseen entity and aggressively escalating toward staff. We calmly talked the patient into choosing between IM or PO midication intervention. He opted for PO meds. After consulting with Dr. Cuevas (On the unit at the time) an order for 40mg PO Geodon, 2mg PO Ativan and 50mg PO Benadryl was given. We also relocated patient to [facility], where he willingly took PO meds with Excellent results.
--- NOTE | 2024-12-12 22:13 | PC.NURSE ---
pt was previously very agitated and had recieved medication and is now resting, vs not completed per nurse, resp 16 all previous vitals within normal limits
--- NOTE | 2024-12-13 06:26 | PC.NURSE ---
pt refused vs, nurse notified, resp 17
[2024-12-13 13:06] VITALS: BP 122/78; PULSE 73; RESP 22; TEMP 36.9; O2SAT 98
--- NOTE | 2024-12-13 16:12 | W.PM.NPUPNS ---
Subjective NPU Subjective: Patient presented today reporting that he is doing okay. However he still appears fairly irritated and irritable per staff reports and direct observation. We discussed the risks, and alternatives of maybe returning to past medication regiment like Invega Sustenna and he understood and agreed to consider that as is documented in this note. He denied any side effects to his current medication. Mental Status Exam MSE Comments: This is an overweight versus obese white male in hospital scrubs with poor grooming and appropriate eye contact looking very red like he almost had sunburn. He is missing 2 digits, pointer and middle finger on his left hand. No abnormal involuntary motor movements except for significant psychomotor agitation noted. He was initially being combative but was a little more cooperative with exam later but was observed in extreme distress initially but in mild distress during and after interview. Speech was more slightly increased rate and normal volume with difficulty with pronunciation of R's,. Mood described as really bad affect: slightly agitated. Thought process was linear mostly but had moments of disorganization. Thought content: Patient denied suicidal or homicidal ideation. [place] thinking was appreciated. There were no delusions reported, but possible bizarre or paranoid/persecutory delusions noted. He denied specific auditory or visual hallucinations. Attention and concentration were poor and memory was impaired but none were formally tested. He is alert and oriented x3. Insight was poor and judgment is impaired and impulse control is impaired. There was evidence of poor frustration tolerance. Intelligence appeared commensurate with mild cognitive impairment. Vitals/I&O/Wt Last Vital Signs Temp 98.5 F 12/13/24 13:06 Pulse 73 12/13/24 13:06 Resp 22 H 12/13/24 13:06 BP 122/78 12/13/24 13:06 Pulse Ox 98 12/13/24 13:06 O2 Del Method Room Air 12/13/24 13:06 12/13/24 12/13/24 12/13/24 06:59 14:59 22:59 Intake Total 240 / 240 Balance 240 / 240 Data NPU 12/11/24 12:19 12/11/24 12:19 Micro: Microbiology 12/11/24 20:00 Urine Culture - Final Urine,Clean Catch Microbiology 12/11/24 20:00 Urine,Clean Catch Urine Culture - Final A&P Assessment and plan 1. Suicidal ideation: 2. Intermittent explosive disorder: 3. Nicotine dependence, unspecified, uncomplicated: 4. Alcohol use disorder, severe, dependence: 5. Post-traumatic stress disorder, chronic: 6. Major depressive disorder, recurrent, severe with psychotic features: 7. Impulse control disorder, unspecified: Plan: This is a 49-year-old white male with a long history of addiction and mental health treatment known through multiple past hospitalizations with history of addiction and psychosis and often aggression who presents positive for cannabis and being fairly agitated and needing as needed medications. 1.? Continue current medication.? Explore possible changes. [facility] 2.? Continue every 15 minute checks for safety. 3.? Encourage individual, group and milieu therapies. 4.? Encourage sober living treatment after discharge at the highest level of care to which he is willing to commit. 5. Obtain collateral information. 6. Observe against the backdrop of 96-hour hold. PDMP PDMP Reviewed: Not Reviewed Involuntary Hold Information Hold Status: Legal Status: 96 Hour Hold Date/Time Hold Expires: 12/17/24 @ 12:45 96 Hour Hold: 96 Hour Involuntary Admission: Yes Attestations NPU Medical Necessity Statement*: Inpatient hospitalization is medically necessary and the clinically appropriate intervention at this time. We will monitor medications and make changes as indicated. Likely length of stay 7-10 days. Coding Level of Care Code Acute Code for [facility] Diagnoses Suicidal ideation R45.851 Intermittent explosive disorder F63.81 Nicotine dependence, unspecified, uncomplicated F17.200 Alcohol use disorder, severe, dependence F10.20 Post-traumatic stress disorder, chronic F43.12 Major depressive disorder, recurrent, severe with psychotic features F33.3 Impulse control disorder, unspecified F63.9
[2024-12-13 19:50] VITALS: BP 136/79; PULSE 77; RESP 18; TEMP 36.7; O2SAT 96; BMI 28.6
[2024-12-14 06:00] VITALS: BP 140/84; PULSE 86; RESP 19; TEMP 37.1; O2SAT 99
[2024-12-14 14:00] VITALS: BP 138/87; PULSE 63; RESP 15; TEMP 36.6; O2SAT 97
--- NOTE | 2024-12-14 14:43 | W.PM.NPUPNS ---
Subjective NPU Subjective: Patient presented today reporting things are going all right. We discussed his struggles and how he seemed to do better in the past with the background. We discussed the risks, benefits and alternatives of trial or return to Invega and the Invega injection and he understood and agreed to proceed as is documented in this note. Mental Status Exam MSE Comments: This is an overweight versus obese white male in hospital scrubs with poor grooming and appropriate eye contact looking very red like he almost had sunburn. He is missing 2 digits, pointer and middle finger on his left hand. No abnormal involuntary motor movements except for significant psychomotor agitation noted. He was initially being combative but was a little more cooperative with exam later but was observed in extreme distress initially but in mild distress during and after interview. Speech was more slightly increased rate and normal volume with difficulty with pronunciation of R's,. Mood described as really bad affect: slightly agitated. Thought process was linear mostly but had moments of disorganization. Thought content: Patient denied suicidal or homicidal ideation. [place] thinking was appreciated. There were no delusions reported, but possible bizarre or paranoid/persecutory delusions noted. He denied specific auditory or visual hallucinations. Attention and concentration were poor and memory was impaired but none were formally tested. He is alert and oriented x3. Insight was poor and judgment is impaired and impulse control is impaired. There was evidence of poor frustration tolerance. Intelligence appeared commensurate with mild cognitive impairment. Vitals/I&O/Wt Last Vital Signs Temp 98.7 F 12/14/24 06:00 Pulse 86 12/14/24 06:00 Resp 19 H 12/14/24 06:00 BP 140/84 12/14/24 06:00 Pulse Ox 99 12/14/24 06:00 O2 Del Method Room Air 12/14/24 06:00 12/13/24 12/14/24 12/14/24 22:59 06:59 14:59 Intake Total 240 / 480 Balance 240 / 480 Weight last 48 hrs Weight 101.151 kg Data NPU 12/11/24 12:19 12/11/24 12:19 Micro: Microbiology 12/11/24 20:00 Urine Culture - Final Urine,Clean Catch Microbiology 12/11/24 20:00 Urine,Clean Catch Urine Culture - Final A&P Assessment and plan 1. Suicidal ideation: 2. Intermittent explosive disorder: 3. Nicotine dependence, unspecified, uncomplicated: 4. Alcohol use disorder, severe, dependence: 5. Post-traumatic stress disorder, chronic: 6. Major depressive disorder, recurrent, severe with psychotic features: 7. Impulse control disorder, unspecified: Plan: This is a 49-year-old white male with a long history of addiction and mental health treatment known through multiple past hospitalizations with history of addiction and psychosis and often aggression who presents positive for cannabis and being fairly agitated and needing as needed medications. 1.? Continue current medication.? Explore possible changes. Recommended return to Invega Sustenna. Start Invega 6 mg p.o. daily and Invega Sustenna 234 mg IM initial loading dose so to deltoid. 2.? Continue every 15 minute checks for safety. 3.? Encourage individual, group and milieu therapies. 4.? Encourage sober living treatment after discharge at the highest level of care to which he is willing to commit. 5. Obtain collateral information. 6. Observe against the backdrop of 96-hour hold. PDMP PDMP Reviewed: Not Reviewed Involuntary Hold Information Hold Status: Legal Status: 96 Hour Hold Date/Time Hold Expires: 12/17/24 @ 12:45 96 Hour Hold: 96 Hour Involuntary Admission: Yes Attestations NPU Medical Necessity Statement*: Inpatient hospitalization is medically necessary and the clinically appropriate intervention at this time. We will monitor medications and make changes as indicated. Likely length of stay 7-10 days. Coding Level of Care Code Acute Code for [facility] Diagnoses Suicidal ideation R45.851 Intermittent explosive disorder F63.81 Nicotine dependence, unspecified, uncomplicated F17.200 Alcohol use disorder, severe, dependence F10.20 Post-traumatic stress disorder, chronic F43.12 Major depressive disorder, recurrent, severe with psychotic features F33.3 Impulse control disorder, unspecified F63.9
[2024-12-14 20:10] VITALS: BP 121/77; PULSE 100; RESP 18; TEMP 37.1; O2SAT 96
[2024-12-15] MEDS: paliperidone ER 6 mg Tablet PO (08:15)
[2024-12-15] MEDS: paliperidone palmitate 234 mg Syringe IM (08:33)
[2024-12-15 14:00] VITALS: BP 130/80; PULSE 88; RESP 15; O2SAT 97
--- NOTE | 2024-12-15 18:01 | P.NPUPN_ITS ---
Subjective NPU 2 Subjective: Patient presents today reporting that he is doing all right. Staff report initial resistance to change in medication but eventually he took the pill and was able to allow the injection to be given. He denies any sequela from that shot or any specific issues. We discussed observing for some period of time to make sure that he is having progress and moving towards his baseline prior to discharge. He denied any side effects to his medication. Mental Status Exam 2 MSE Comments: This is an overweight versus obese white male in hospital scrubs with poor grooming and appropriate eye contact looking very red like he almost had sunburn. He is missing 2 digits, pointer and middle finger on his left hand. No abnormal involuntary motor movements except for some psychomotor agitation noted. More cooperative with exam in mild distress. Speech was more slightly increased rate and normal volume with difficulty with pronunciation of R's. Mood described as maybe a little better, affect slightly agitated. Thought process was linear mostly but had moments of disorganization. Thought content: Patient denied suicidal or homicidal ideation. [place] thinking was appreciated. There were no delusions reported, but possible bizarre or paranoid/persecutory delusions noted. He denied specific auditory or visual hallucinations. Attention and concentration were poor and memory was impaired but none were formally tested. He is alert and oriented x3. Insight was poor and judgment is impaired and impulse control is impaired. There was evidence of poor frustration tolerance. Intelligence appeared commensurate with mild cognitive impairment. Vitals/I&O/Wt Last Vital Signs Temp 97.4 F L 12/15/24 20:10 Pulse 104 H 12/15/24 20:10 Resp 18 12/15/24 20:10 BP 110/71 12/15/24 20:10 Pulse Ox 98 12/15/24 20:10 O2 Del Method Room Air 12/15/24 20:10 Data NPU 12/11/24 12:19 12/11/24 12:19 A&P Assessment and plan 1. Suicidal ideation: 2. Intermittent explosive disorder: 3. Nicotine dependence, unspecified, uncomplicated: 4. Alcohol use disorder, severe, dependence: 5. Post-traumatic stress disorder, chronic: 6. Major depressive disorder, recurrent, severe with psychotic features: 7. Impulse control disorder, unspecified: Plan: This is a 49-year-old white male with a long history of addiction and mental health treatment known through multiple past hospitalizations with history of addiction and psychosis and often aggression who presents positive for cannabis and being fairly agitated and needing as needed medications. 1.? Continue current medication.? Explore possible changes. Recommended return to Invega Sustenna. Started Invega 6 mg p.o. daily and Invega Sustenna 234 mg IM initial loading dose so to deltoid. Will give next loading dose 156 mg IM also do deltoid in 7 days ?4 days. 2.? Continue every 15 minute checks for safety. 3.? Encourage individual, group and milieu therapies. 4.? Encourage sober living treatment after discharge at the highest level of care to which he is willing to commit. 5. Obtain collateral information. 6. Observe against the backdrop of 96-hour hold. PDMP PDMP Reviewed: Not Reviewed Involuntary Hold Information 2 Hold Status: Legal Status: 96 Hour Hold Date/Time Hold Expires: 12/17/24 @ 12:45 96 Hour Hold: 96 Hour Involuntary Admission: Yes Attestations NPU 2 Medical Necessity Statement*: Inpatient hospitalization is medically necessary and the clinically appropriate intervention at this time. We will monitor medications and make changes as indicated. Likely length of stay 7-10 days. Coding Level of Care Code Acute Code for [facility] Diagnoses Suicidal ideation R45.851 Intermittent explosive disorder F63.81 Nicotine dependence, unspecified, uncomplicated F17.200 Alcohol use disorder, severe, dependence F10.20 Post-traumatic stress disorder, chronic F43.12 Major depressive disorder, recurrent, severe with psychotic features F33.3 Impulse control disorder, unspecified F63.9
[2024-12-15 20:10] VITALS: BP 110/71; PULSE 104; RESP 18; TEMP 36.3; O2SAT 98
[2024-12-16 06:00] VITALS: BP 120/75; PULSE 62; RESP 18; TEMP 36.5; O2SAT 95
[2024-12-16] MEDS: paliperidone ER 6 mg Tablet PO (08:02)
--- NOTE | 2024-12-16 13:33 | W.PM.NPUPNS ---
Subjective NPU Subjective: Patient presented today reporting that he is feeling all right in general. He denied any issues with the injection and reports that he is feeling better. We discussed the plan for discharge that would involve him getting his second loading dose injection in the deltoid and then moving forward to consider discharge. He denied any side effects of medication. Mental Status Exam MSE Comments: This is an overweight versus obese white male in hospital scrubs with poor grooming and appropriate eye contact looking very red like he almost had sunburn. He is missing 2 digits, pointer and middle finger on his left hand. No abnormal involuntary motor movements except for some psychomotor agitation noted. More cooperative with exam in mild distress. Speech was more slightly increased rate and normal volume with difficulty with pronunciation of R's. Mood described as maybe a little better, affect slightly agitated. Thought process was linear mostly but had moments of disorganization. Thought content: Patient denied suicidal or homicidal ideation. [place] thinking was appreciated. There were no delusions reported, but possible bizarre or paranoid/persecutory delusions noted. He denied specific auditory or visual hallucinations. Attention and concentration were poor and memory was impaired but none were formally tested. He is alert and oriented x3. Insight was poor and judgment is impaired and impulse control is impaired. There was evidence of poor frustration tolerance. Intelligence appeared commensurate with mild cognitive impairment. Vitals/I&O/Wt Last Vital Signs Temp 97.7 F 12/16/24 06:00 Pulse 62 12/16/24 06:00 Resp 18 12/16/24 06:00 BP 120/75 12/16/24 06:00 Pulse Ox 95 12/16/24 06:00 O2 Del Method Room Air 12/16/24 06:00 Data NPU 12/11/24 12:19 12/11/24 12:19 A&P Assessment and plan 1. Suicidal ideation: 2. Intermittent explosive disorder: 3. Nicotine dependence, unspecified, uncomplicated: 4. Alcohol use disorder, severe, dependence: 5. Post-traumatic stress disorder, chronic: 6. Major depressive disorder, recurrent, severe with psychotic features: 7. Impulse control disorder, unspecified: Plan: This is a 49-year-old white male with a long history of addiction and mental health treatment known through multiple past hospitalizations with history of addiction and psychosis and often aggression who presents positive for cannabis and being fairly agitated and needing as needed medications. 1.? Continue current medication.? Explore possible changes. Recommended return to Invega Sustenna. Started Invega 6 mg p.o. daily and Invega Sustenna 234 mg IM initial loading dose so to deltoid 12/15/2024. Next injection will give next loading dose 156 mg IM also do deltoid in 7 days ?4 days. 2.? Continue every 15 minute checks for safety. 3.? Encourage individual, group and milieu therapies. 4.? Encourage sober living treatment after discharge at the highest level of care to which he is willing to commit. 5. Obtain collateral information. 6. Observe against the backdrop of 96-hour hold. PDMP PDMP Reviewed: Not Reviewed Involuntary Hold Information Hold Status: Legal Status: 96 Hour Hold Date/Time Hold Expires: 12/17/24 @ 12:45 96 Hour Hold: 96 Hour Involuntary Admission: Yes Attestations NPU Medical Necessity Statement*: Inpatient hospitalization is medically necessary and the clinically appropriate intervention at this time. We will monitor medications and make changes as indicated. Likely length of stay 4-7 days. Coding Level of Care Code Acute Code for [facility] Diagnoses Suicidal ideation R45.851 Intermittent explosive disorder F63.81 Nicotine dependence, unspecified, uncomplicated F17.200 Alcohol use disorder, severe, dependence F10.20 Post-traumatic stress disorder, chronic F43.12 Major depressive disorder, recurrent, severe with psychotic features F33.3 Impulse control disorder, unspecified F63.9
[2024-12-16 13:51] VITALS: BP 132/83; PULSE 110; RESP 20; O2SAT 97
[2024-12-16 19:53] VITALS: BP 122/75; PULSE 82; RESP 17; TEMP 36.6; O2SAT 97
[2024-12-17 06:00] VITALS: BP 97/67; PULSE 110; RESP 17; TEMP 36.6; O2SAT 98
[2024-12-17] MEDS: paliperidone ER 6 mg Tablet PO (08:32)
--- NOTE | 2024-12-17 13:21 | W.PM.NPUPNS ---
Subjective NPU Subjective: Patient presented today reporting he is doing okay. He continues to be somewhat isolative per staff reports and direct observation. We continued to discuss a plan to give him his second loading dose by Sunday. We discussed that the point we will see how he is doing and maybe get some input from his people from home to see how they feel he is doing. He denied any side effects of medication. Mental Status Exam MSE Comments: This is an overweight versus obese white male in hospital scrubs with poor grooming and appropriate eye contact looking very red like he almost had sunburn. He is missing 2 digits, pointer and middle finger on his left hand. No abnormal involuntary motor movements except for some psychomotor agitation noted. More cooperative with exam in mild distress. Speech was more slightly increased rate and normal volume with difficulty with pronunciation of R's. Mood described as maybe a little better, affect slightly agitated. Thought process was linear mostly but had moments of disorganization. Thought content: Patient denied suicidal or homicidal ideation. [place] thinking was appreciated. There were no delusions reported, but possible bizarre or paranoid/persecutory delusions noted. He denied specific auditory or visual hallucinations. Attention and concentration were poor and memory was impaired but none were formally tested. He is alert and oriented x3. Insight was poor and judgment is impaired and impulse control is impaired. There was evidence of poor frustration tolerance. Intelligence appeared commensurate with mild cognitive impairment. Vitals/I&O/Wt Last Vital Signs Temp 97.8 F 12/17/24 06:00 Pulse 110 H 12/17/24 06:00 Resp 17 12/17/24 06:00 BP 97/67 12/17/24 06:00 Pulse Ox 98 12/17/24 06:00 O2 Del Method Room Air 12/17/24 06:00 Data NPU 12/11/24 12:19 12/11/24 12:19 A&P Assessment and plan 1. Suicidal ideation: 2. Intermittent explosive disorder: 3. Nicotine dependence, unspecified, uncomplicated: 4. Alcohol use disorder, severe, dependence: 5. Post-traumatic stress disorder, chronic: 6. Major depressive disorder, recurrent, severe with psychotic features: 7. Impulse control disorder, unspecified: Plan: This is a 49-year-old white male with a long history of addiction and mental health treatment known through multiple past hospitalizations with history of addiction and psychosis and often aggression who presents positive for cannabis and being fairly agitated and needing as needed medications. 1.? Continue current medication.? Explore possible changes. Recommended return to Invega Sustenna. Started Invega 6 mg p.o. daily and Invega Sustenna 234 mg IM initial loading dose so to deltoid 12/15/2024. Next injection will give next loading dose 156 mg IM also do deltoid in 7 days ?4 days. Plan for second dose or Sunday. 2.? Continue every 15 minute checks for safety. 3.? Encourage individual, group and milieu therapies. 4.? Encourage sober living treatment after discharge at the highest level of care to which he is willing to commit. 5. Obtain collateral information. 6. Observe against the backdrop of 96-hour hold. PDMP PDMP Reviewed: Not Reviewed Involuntary Hold Information Hold Status: Legal Status: 96 Hour Hold Date/Time Hold Expires: 12/17/24 @ 12:45 96 Hour Hold: 96 Hour Involuntary Admission: Yes Attestations NPU Medical Necessity Statement*: Inpatient hospitalization is medically necessary and the clinically appropriate intervention at this time. We will monitor medications and make changes as indicated. Likely length of stay 2-5 days. Coding Level of Care Code Acute Code for [facility] Diagnoses Suicidal ideation R45.851 Intermittent explosive disorder F63.81 Nicotine dependence, unspecified, uncomplicated F17.200 Alcohol use disorder, severe, dependence F10.20 Post-traumatic stress disorder, chronic F43.12 Major depressive disorder, recurrent, severe with psychotic features F33.3 Impulse control disorder, unspecified F63.9
[2024-12-17 14:00] VITALS: BP 114/74; PULSE 117; RESP 15; O2SAT 98
[2024-12-17 21:59] VITALS: BP 118/73; PULSE 97; RESP 18; TEMP 36.6; O2SAT 100
[2024-12-18 06:00] VITALS: BP 119/75; PULSE 86; RESP 17; TEMP 36.6; O2SAT 99
[2024-12-18] MEDS: paliperidone ER 6 mg Tablet PO (08:47)
[2024-12-18 13:57] VITALS: BP 126/75; PULSE 81; RESP 18; TEMP 36.6; O2SAT 99
--- NOTE | 2024-12-18 14:01 | W.PM.NPUPNS ---
Subjective NPU Subjective: Patient presented today reporting he is doing fine. We discussed the risks, benefits and alternatives of giving him his next Invega dose tomorrow and he understood and agreed to proceed as is documented in his note. We discussed being hopeful that we could find a place for him to discharge to worrying about his current functioning and we discussed getting a SJ examination to try to get an objective view of his cognitive functioning. He denied any side effects of medication. Mental Status Exam MSE Comments: This is an overweight versus obese white male in hospital scrubs with poor grooming and appropriate eye contact looking very red like he almost had sunburn. He is missing 2 digits, pointer and middle finger on his left hand. No abnormal involuntary motor movements except for some psychomotor agitation noted. More cooperative with exam in mild distress. Speech was more slightly increased rate and normal volume with difficulty with pronunciation of R's. Mood described as maybe a little better, affect slightly agitated. Thought process was linear mostly but had moments of disorganization. Thought content: Patient denied suicidal or homicidal ideation. [place] thinking was appreciated. There were no delusions reported, but possible bizarre or paranoid/persecutory delusions noted. He denied specific auditory or visual hallucinations. Attention and concentration were poor and memory was impaired but none were formally tested. He is alert and oriented x3. Insight was poor and judgment is impaired and impulse control is impaired. There was evidence of poor frustration tolerance. Intelligence appeared commensurate with mild cognitive impairment. Vitals/I&O/Wt Last Vital Signs Temp 97.9 F 12/18/24 13:57 Pulse 81 12/18/24 13:57 Resp 18 12/18/24 13:57 BP 126/75 12/18/24 13:57 Pulse Ox 99 12/18/24 13:57 O2 Del Method Room Air 12/18/24 13:57 Data NPU 12/11/24 12:19 12/11/24 12:19 A&P Assessment and plan 1. Suicidal ideation: 2. Intermittent explosive disorder: 3. Nicotine dependence, unspecified, uncomplicated: 4. Alcohol use disorder, severe, dependence: 5. Post-traumatic stress disorder, chronic: 6. Major depressive disorder, recurrent, severe with psychotic features: 7. Impulse control disorder, unspecified: Plan: This is a 49-year-old white male with a long history of addiction and mental health treatment known through multiple past hospitalizations with history of addiction and psychosis and often aggression who presents positive for cannabis and being fairly agitated and needing as needed medications. 1.? Continue current medication.? Explore possible changes. Recommended return to Invega Sustenna. Started Invega 6 mg p.o. daily and Invega Sustenna 234 mg IM initial loading dose so to deltoid 12/15/2024. Next injection will give next loading dose 156 mg IM also do deltoid in 7 days ?4 days. Plan for second dose or Sunday. 2.? Continue every 15 minute checks for safety. 3.? Encourage individual, group and milieu therapies. 4.? Encourage sober living treatment after discharge at the highest level of care to which he is willing to commit. 5. Obtain collateral information. 6. Observe against the backdrop of 96-hour hold. 7. Initiate SJ examination and consider guardianship and capacity for independent discharge. PDMP PDMP Reviewed: Not Reviewed Involuntary Hold Information Hold Status: Legal Status: 96 Hour Hold Date/Time Hold Expires: 12/17/24 @ 12:45 96 Hour Hold: 96 Hour Involuntary Admission: Yes Attestations NPU Medical Necessity Statement*: Inpatient hospitalization is medically necessary and the clinically appropriate intervention at this time. We will monitor medications and make changes as indicated. Likely length of stay on the floor days. Coding Level of Care Code Acute Code for [facility] Diagnoses Suicidal ideation R45.851 Intermittent explosive disorder F63.81 Nicotine dependence, unspecified, uncomplicated F17.200 Alcohol use disorder, severe, dependence F10.20 Post-traumatic stress disorder, chronic F43.12 Major depressive disorder, recurrent, severe with psychotic features F33.3 Impulse control disorder, unspecified F63.9
[2024-12-18 20:21] VITALS: BP 120/72; PULSE 109; RESP 19; TEMP 36.3; O2SAT 96
[2024-12-19 06:00] VITALS: PULSE 110; RESP 20; O2SAT 99
[2024-12-19] MEDS: paliperidone ER 6 mg Tablet PO (08:54)
[2024-12-19 14:00] VITALS: BP 125/75; PULSE 94; RESP 18; TEMP 36.3; O2SAT 97
--- NOTE | 2024-12-19 15:11 | P.NPUPN_ITS ---
Subjective NPU 2 Subjective: Patient presented today reporting that he is doing fine. He met with the people from [facility] and identified that that would be a reasonable fit. We discussed the limitations and some of his recreational behaviors that would not be tolerated in that facility. We discussed him getting his second loading dose of Invega Sustenna which would be 156 mg IM prior to departure. It is a loading dose so we discussed that being in the deltoid. He had a SJ examination which he did not do well. We have discussed the likelihood of guardianship if he would return anytime soon. He denied any side effects to the medication. Mental Status Exam 2 MSE Comments: This is an overweight versus obese white male in hospital scrubs with adequate grooming and appropriate eye contact. He is missing 2 digits, pointer and middle finger on his left hand. No abnormal involuntary motor movements except for some mild psychomotor agitation noted. More cooperative with exam in mild distress. Speech was more slightly increased rate and normal volume with difficulty with pronunciation of R's. Mood described as little better, affect slightly agitated. Thought process was linear mostly but had moments of disorganization. Thought content: Patient denied suicidal or homicidal ideation. [place] thinking was appreciated. There were no delusions reported, but possible bizarre or paranoid/persecutory delusions noted. He denied specific auditory or visual hallucinations. Attention and concentration were poor and memory was impaired but none were formally tested. He is alert and oriented x3. Insight was poor and judgment is impaired and impulse control is impaired. There was evidence of poor frustration tolerance. Intelligence appeared commensurate with mild cognitive impairment. Vitals/I&O/Wt Last Vital Signs Temp 97.4 F L 12/19/24 14:00 Pulse 94 12/19/24 14:00 Resp 18 12/19/24 14:00 BP 125/75 12/19/24 14:00 Pulse Ox 97 12/19/24 14:00 O2 Del Method Room Air 12/19/24 06:00 Data NPU 12/11/24 12:19 12/11/24 12:19 A&P Assessment and plan 1. Suicidal ideation: 2. Intermittent explosive disorder: 3. Nicotine dependence, unspecified, uncomplicated: 4. Alcohol use disorder, severe, dependence: 5. Post-traumatic stress disorder, chronic: 6. Major depressive disorder, recurrent, severe with psychotic features: 7. Impulse control disorder, unspecified: Plan: This is a 49-year-old white male with a long history of addiction and mental health treatment known through multiple past hospitalizations with history of addiction and psychosis and often aggression who presents positive for cannabis and being fairly agitated and needing as needed medications. 1.? Continue current medication.? Explore possible changes. Recommended return to Invega Sustenna. Started Invega 6 mg p.o. daily and Invega Sustenna 234 mg IM initial loading dose so to deltoid 12/15/2024. Next injection will give next loading dose 156 mg IM also do deltoid in 7 days ?4 days. Give Invega Sustenna 156 mg IM to the deltoid as his loading dose today with tentative plan for discharge tomorrow. 2.? Continue every 15 minute checks for safety. 3.? Encourage individual, group and milieu therapies. 4.? Encourage sober living treatment after discharge at the highest level of care to which he is willing to commit. 5. Obtain collateral information. 6. Observe against the backdrop of 96-hour hold. 7. Initiate SJ examination and consider guardianship and capacity for independent discharge. SJ results were negative with 0 areas of competence. He returns we will likely pursue guardianship. PDMP PDMP Reviewed: Not Reviewed Involuntary Hold Information 2 Hold Status: Legal Status: 96 Hour Hold Date/Time Hold Expires: 12/17/24 @ 12:45 96 Hour Hold: 96 Hour Involuntary Admission: Yes Attestations NPU 2 Medical Necessity Statement*: Inpatient hospitalization is medically necessary and the clinically appropriate intervention at this time. We will monitor medications and make changes as indicated. Likely length of stay 1-3 days. Coding Level of Care Code Acute Code for [facility] Diagnoses Suicidal ideation R45.851 Intermittent explosive disorder F63.81 Nicotine dependence, unspecified, uncomplicated F17.200 Alcohol use disorder, severe, dependence F10.20 Post-traumatic stress disorder, chronic F43.12 Major depressive disorder, recurrent, severe with psychotic features F33.3 Impulse control disorder, unspecified F63.9
--- NOTE | 2024-12-19 15:54 | DCPLANNER ---
IMM was given to pt and rights explained. Copy was placed in pt file.
[2024-12-19 20:41] VITALS: BP 126/70; PULSE 109; RESP 18; TEMP 37; O2SAT 95
[2024-12-19] MEDS: paliperidone palmitate 156 mg Syringe IM (21:01)
[2024-12-20 06:41] VITALS: BP 119/74; PULSE 62; RESP 18; TEMP 36.8; O2SAT 97
[2024-12-20] MEDS: paliperidone ER 6 mg Tablet PO (07:58)
--- NOTE | 2024-12-20 08:51 | P.NPUPN_ITS ---
Subjective NPU 2 Subjective: Patient presented today reporting that he is feeling fine. He was frustrated at first because he was not advised that his discharge to [facility] was switched to tomorrow so that transportation would be manageable. We discussed that him having another day to have the medication be solidified in his system was not a problem though he was looking forward to leaving. His discharge was already placed. He denied any side effects of medication. Mental Status Exam 2 MSE Comments: This is an overweight versus obese white male in hospital scrubs with adequate grooming and appropriate eye contact. He is missing 2 digits, pointer and middle finger on his left hand. No abnormal involuntary motor movements except for some mild psychomotor agitation noted. More cooperative with exam in mild distress. Speech was more slightly increased rate and normal volume with difficulty with pronunciation of R's. Mood described as little better, affect more calm. Thought process was linear mostly but had moments of disorganization. Thought content: Patient denied suicidal or homicidal ideation. [place] thinking was appreciated. There were no delusions reported, but possible bizarre or paranoid/persecutory delusions noted. He denied specific auditory or visual hallucinations. Attention and concentration were limited and memory was more reliable but none were formally tested. He is alert and oriented x3. Insight was poor and judgment is impaired and impulse control is impaired. There was evidence of poor frustration tolerance. Intelligence appeared commensurate with mild cognitive impairment. Vitals/I&O/Wt Last Vital Signs Temp 98.3 F 12/20/24 06:41 Pulse 62 12/20/24 06:41 Resp 18 12/20/24 06:41 BP 119/74 12/20/24 06:41 Pulse Ox 97 12/20/24 06:41 O2 Del Method Room Air 12/20/24 06:41 Data NPU 12/11/24 12:19 12/11/24 12:19 A&P Assessment and plan 1. Suicidal ideation: 2. Intermittent explosive disorder: 3. Nicotine dependence, unspecified, uncomplicated: 4. Alcohol use disorder, severe, dependence: 5. Post-traumatic stress disorder, chronic: 6. Major depressive disorder, recurrent, severe with psychotic features: 7. Impulse control disorder, unspecified: Plan: This is a 49-year-old white male with a long history of addiction and mental health treatment known through multiple past hospitalizations with history of addiction and psychosis and often aggression who presents positive for cannabis and being fairly agitated and needing as needed medications. 1.? Continue current medication.? Explore possible changes. Recommended return to Invega Sustenna. Started Invega 6 mg p.o. daily and Invega Sustenna 234 mg IM initial loading dose so to deltoid 12/15/2024. Next injection will give next loading dose 156 mg IM also do deltoid in 7 days ?4 days. Patient given Invega Sustenna 156 mg IM to the deltoid as his loading dose 12/19/2024 next injection due 01/19/2025. 2.? Continue every 15 minute checks for safety. 3.? Encourage individual, group and milieu therapies. 4.? Encourage sober living treatment after discharge at the highest level of care to which he is willing to commit. 5. Obtain collateral information. 6. Observe against the backdrop of 96-hour hold. 7. Initiate SJ examination and consider guardianship and capacity for independent discharge. SJ results were negative with 0 areas of competence. He returns we will likely pursue guardianship. Plan for discharge to [facility] tomorrow. PDMP PDMP Reviewed: Not Reviewed Involuntary Hold Information 2 Hold Status: Legal Status: 96 Hour Hold Date/Time Hold Expires: 12/17/24 @ 12:45 96 Hour Hold: 96 Hour Involuntary Admission: Yes Attestations NPU 2 Medical Necessity Statement*: Inpatient hospitalization is medically necessary and the clinically appropriate intervention at this time. We will monitor medications and make changes as indicated. Likely length of stay 1 day. Coding Level of Care Code Acute Code for [facility] Diagnoses Suicidal ideation R45.851 Intermittent explosive disorder F63.81 Nicotine dependence, unspecified, uncomplicated F17.200 Alcohol use disorder, severe, dependence F10.20 Post-traumatic stress disorder, chronic F43.12 Major depressive disorder, recurrent, severe with psychotic features F33.3 Impulse control disorder, unspecified F63.9
[2024-12-20 12:11] VITALS: BP 118/75; PULSE 103; RESP 18; TEMP 36.4; O2SAT 99
[2024-12-20 19:43] VITALS: BP 125/77; PULSE 109; RESP 18; TEMP 37.2; O2SAT 98
[2024-12-20 20:15] VITALS: BMI 28.6
[2024-12-21 06:00] VITALS: BP 104/69; PULSE 93; RESP 19; TEMP 36.3; O2SAT 98
[2024-12-21] MEDS: paliperidone ER 6 mg Tablet PO (09:28)
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
[2024-12-21 14:00] VITALS: BP 117/71; PULSE 108; RESP 18; TEMP 36.8; O2SAT 98
[2024-12-21 14:08] VITALS: BP 104/69; PULSE 93; RESP 19; TEMP 36.3; O2SAT 98
--- NOTE | 2024-12-21 14:12 | PC.NURSE ---
Signee called Dylan Michael asking what pharmacy they wanted pt.'s medication sent to. Jonatan Rodrigeuz said to sent them to [facility] pharmacy and they would pick them up tomorrow.
== END 2024-12-21 15:04 | disposition home or self-care (01) | DRG 885 ==
LOC: ER 11:59 → NP 13:14
PROVIDERS: Admitting Provider Psychiatry & Neurology Psychiatry; Emergency Provider Emergency Medicine; PCP Nurse Practitioner Family; Visit Provider Psychiatry & Neurology Psychiatry
DX: F33.3 Major depressive disorder, recurrent, severe with psychotic symptoms (principal); F63.81 Intermittent explosive disorder; F43.12 Post-traumatic stress disorder, chronic; F63.9 Impulse disorder, unspecified; F17.210 Nicotine dependence, cigarettes, uncomplicated; E66.9 Obesity, unspecified; Z68.28 Body mass index [BMI] 28.0-28.9, adult; Z88.0 Allergy status to penicillin; Z89.022 Acquired absence of left finger(s); G31.84 Mild cognitive impairment of uncertain or unknown etiology; F10.21 Alcohol dependence, in remission
CPT/HCPCS: 36415; 80053; 80306; 80307; 81001; 84443; 85025; 87086; 93005; 96372; 97150; 97165; 97167; 99285; J9999; Q0163